=== PATIENT | female | born 1930 | race Caucasian/White ===

== ENCOUNTER 2016-07-18 08:30 | Outpatient (RCR) | payer MEDICARE ==
[~2016-07-18 08:30] MED LIST: ALEN35TA20 PO; ALEN70TA47 PO; ALPR.25T PO; AMOXICILLIN 875MG PO; APIX5TAB PO; ASP81TEC PO; ATRV10T PO; CALC600T PO; CARV12.53 PO; CEPH500C PO; CIPR2.5D2 RIGHT EAR; FISH1CAP15 PO; HYDR-3454 PO; HYDR12.5 PO; LISI-552 PO; LISI1TAB PO; LISI20TA PO; LUTE10TA PO; LUTE20TA PO; MELO15TA14 PO; METO25TA2 PO; MULT-878 PO; MULT1TAB12 PO; NAPR500T3 PO; OMEG1CAP51 PO; VIT1CAPS9 PO; [UNRECOGNIZED DRUG - CODE] PO; [UNRECOGNIZED DRUG - OTHER] PO
== END 2016-09-22 | disposition home or self-care (01) ==
LOC: CARD 08:30
PROVIDERS: ATTEND Internal Medicine Interventional Cardiology
DX: I48.91 Unspecified atrial fibrillation (principal)
CPT/HCPCS: 93270

== ENCOUNTER 2016-10-17 05:42 | Outpatient (CLI) | payer MEDICARE ==
[~2016-10-17] VITALS: Ht 162.6 cm; Wt 68.3 kg
--- OUTSIDE RECORDS SUMMARY | 2016-10-17 05:45 | XMS REPORT | Continuity of Care Document ---
Author Author [facility] Organization [facility] Address Unknown Phone Unavailable Care Team Providers Care Electrical Calibrator Name Role Phone ARTUR DENG MD PCP Insurance Providers Payer Name Policy Number Subscriber Name Relationship Wps Medicare [id number] Adali Herr 18 Self / Same As Patient Blue Cross Mcr Supp [id number] Adali Herr P 18 Self / Same As Patient Advance Directives Directive Response Recorded Date/Time Advance Directives Yes 07/11/16 12:31am Health Care Power of Chief Science Officer No 07/11/16 12:31am Organ Donor Yes 07/11/16 12:31am Problems Active Problems Medical Problem Onset Date Status Hyponatremia Unknown Acute Intractable neuropathic pain of left hand Unknown Acute Left arm pain Unknown Acute Uncontrolled hypertension Unknown Acute Medications Current Home Medications Medication Dose Units Route Directions Days/Qty Instructions Start Date Atorvastatin Calcium 10 Mg 10 Mg Oral Daily 06/07/12 Calcium Carbonate 600 Mg 1,200 Mg Oral Daily 11/30/12 Lutein 20 Mg 20 Mg Oral Daily 11/30/12 Alendronate Sodium 70 Mg 70 Mg Oral Every Thursday ON HOLD FOR 6 MONTHS BEGINNING 11/30/12 Fish Oil/Dha/Epa 1 Each 1,200 Mg Oral Twice A Day 06/23/16 Naproxen 500 Mg 500 Mg Oral Twice A Day #28 FILLED 06-18-16 WAS TO TAKE PRESCRIBED UNTIL ALL TAKEN THEN DISCONTINUE 06/23/16 Multivitamins-Min/Fa/Ginkgo 1 Each 1 Tab Oral Daily 06/23/16 Vit C/Vit E/Lutein/Min/[place]-3 1 Each 1 Cap Oral Daily 06/23/16 Lisinopril 20 Mg 40 Mg Oral Daily 30 Days 06/24/16 Carvedilol 12.5 Mg 12.5 Mg Oral Twice A Day 30 Days 06/24/16 Apixaban 5 Mg 5 Mg Oral Twice A Day 30 Days 06/24/16 Hydrochlorothiazide 12.5 Mg 12.5 Mg Oral Daily 30 Days 06/24/16 Meloxicam 15 Mg 15 Mg Oral Daily as needed for Hand/Finger Pain 30 Past Home Medications Medication Directions Ordered Status Metoprolol Tartrate (Lopressor) 25 Mg Tablet, 25 Mg Oral Twice A Day Discontinued Lisinopril 20 Mg Tablet, 20 Mg Oral Daily 06/07/12 Discontinued Aspirin 81 Mg Tabec, 81 Mg Oral Twice A Day 06/07/12 Discontinued Multivitamins W-Minerals 1 Each Tablet, 1 Tab Oral Daily 06/07/12 Discontinued Calcium Phosphate 480 Gm Powder, 480 Gm Oral Daily 06/07/12 Discontinued Lutein 10 Mg Tablet, 10 Mg Oral Daily 06/07/12 Discontinued Fish Oil/Dha/Epa 1 Each Capsule, 1 Each Oral Daily 06/07/12 Discontinued Alendronate Sodium 35 Mg Tablet, 35 Mg Oral Weekly On Thu06/07/12 Discontinued Alprazolam 0.25 Mg Tablet, 1 Tab Oral Q8hr Prn 06/07/12 Discontinued Hctz/Lisinopril (Zestoretic) 1 Each Tablet, 1 Tab Oral Daily 11/30/12 Discontinued [place]-3 Fatty Acids/Fish Oil 1 Each Capsule, 1000 Mg Oral Three Times A Day 11/30/12 Discontinued Ciprofloxacin Hcl 2.5 Ml Drops, 4 Drops Right Ear Three Times A Day 11/30/12 Discontinued [Amoxicillin 875MG] , 875 Mg Oral Twice A Day 11/30/12 Discontinued [Antioxidant Vitamins] , 1 Tab Oral Daily 11/30/12 Discontinued Cephalexin Monohydrate (Keflex) 500 Mg Capsule, 1 Each Oral Three Times A Day 12/06/12 Discontinued Hydrocodone Bit/Acetaminophen 1 Each Tablet, 1-2 Tab Oral Every 4HRS as needed 12/06/12 Discontinued Social History Social History Problem Response Recorded Date/Time Recent Foreign Travel No 06/24/2016 4:13pm Sexually Transmitted Disease No 07/11/2016 12:31am Recent Hopitalizations No 07/11/2016 12:31am Sexually Transmitted Disease No 07/11/2016 12:31am Hx Sexually Transmitted Disorders No 12/06/2012 6:20am Hospital Discharge Instructions No hospital discharge instructions. Plan of Care Prescriptions See Medication Section Functional Status No functional status results. Allergies, Adverse Reactions, Alerts Allergen Type Severity Reaction Status Last Updated NKANo Known Allergies Allergy Unknown Active 06/08/06 Immunizations No immunization records. Vital Signs No known vital signs results. Results No known relevant diagnostic tests, laboratory data and/or discharge summary. Procedures Procedure Status Date Provider(s) Cardiac event recording Completed 06/24/16 Dodie RIVERA MD Encounters Encounter Location Arrival/Admit Date Discharge/Depart Date Attending Provider Discharged Recurring [facility] 07/18/16 8:30am 11:59pm Dodie RIVERA MD
== END 2016-10-17 13:10 ==
LOC: PREOP 05:42
PROVIDERS: ATTEND Internal Medicine
DX: Z01.818 Encounter for other preprocedural examination (principal); K92.2 Gastrointestinal hemorrhage, unspecified; D64.9 Anemia, unspecified

== ENCOUNTER 2016-10-21 06:58 | Day surgery (SDC) | payer MEDICARE ==
[~2016-10-21] VITALS: Ht 162.6 cm; Wt 68.3 kg
[2016-10-21] MEDS ORDERED: D5 LR IV SOLUTION 1,000 ML IV ONE (07:01)
--- OUTSIDE RECORDS SUMMARY | 2016-10-21 07:02 | XMS REPORT | Continuity of Care Document ---
Author Author [facility] Organization [facility] Address Unknown Phone Unavailable Care Team Providers Care Roof Shingler Name Role Phone ARTUR DENG MD PCP Insurance Providers Payer Name Policy Number Subscriber Name Relationship Wps Medicare [id number] Adali Herr 18 Self / Same As Patient Blue Cross Mcr Supp [id number] Adali Herr P 18 Self / Same As Patient Advance Directives Directive Response Recorded Date/Time Advance Directives Yes 07/11/16 12:31am Health Care Power of Brokerage Clerk No 07/11/16 12:31am Organ Donor Yes 07/11/16 [...] 1 Tab Oral Daily 06/23/16 Vit C/Vit E/Lutein/Min/[place]-3 1 Each 1 Cap Oral Daily 06/23/16 [...] Tablet, 1 Tab Oral Daily 11/30/12 Discontinued [place]-3 Fatty Acids/Fish Oil 1 Each Capsule, 1000 [...] Discharge/Depart Date Attending Provider Discharged Recurring [facility] 07/18/16 8:30am 11:59pm Dodie RIVERA MD
--- OUTSIDE RECORDS SUMMARY | 2016-10-21 07:02 | XMS REPORT | Continuity of Care Document ---
Author Author [facility] Organization [facility] Address Unknown Phone Unavailable Care Team Providers Care Radiopharmacist Name Role Phone ARTUR DENG MD PCP Insurance Providers Payer Name Policy Number Subscriber Name Relationship Wps Medicare [id number] Adali Herr 18 Self / Same As Patient Blue Cross Mcr Supp [id number] Adali Herr P 18 Self / Same As Patient Advance Directives Directive Response Recorded Date/Time Advance Directives Yes 07/11/16 12:31am Health Care Power of Tool Room Attendant No 07/11/16 12:31am Organ Donor Yes 07/11/16 [...] 1 Tab Oral Daily 06/23/16 Vit C/Vit E/Lutein/Min/[place]-3 1 Each 1 Cap Oral Daily 06/23/16 [...] Tablet, 1 Tab Oral Daily 11/30/12 Discontinued [place]-3 Fatty Acids/Fish Oil 1 Each Capsule, 1000 [...] Discharge/Depart Date Attending Provider Discharged Recurring [facility] 07/18/16 8:30am 11:59pm Dodie RIVERA MD
[2016-10-21] MEDS ORDERED: D5 LR IV SOLUTION 1,000 ML IV STA (07:20)
[2016-10-21 07:22] VITALS: BP 194/99
[2016-10-21] MEDS ORDERED: LIDOCAINE JELLY 2% (XYLOCAINE) 5 ML TUBE MM PRN (07:30)
[2016-10-21] MEDS ORDERED: HURRICAINE EXT TUBE (BENZOCAINE) XX PRN (07:30)
[2016-10-21] MEDS ORDERED: NALOXONE 0.4 MG/ML 1 ML (NARCAN) VIAL IVP PRN (07:30)
[2016-10-21] MEDS ORDERED: FLUMAZENIL (ROMAZICON) 0.1 MG/ML 5 ML VIAL INJ PRN (07:30)
[2016-10-21] MEDS ORDERED: METO-270 PO (07:38)
[2016-10-21] MEDS ORDERED: HURRICAINE EXT TUBE (BENZOCAINE) ONE (07:41)
[2016-10-21] MEDS ORDERED: MIDAZOLAM 2 MG/2 ML (VERSED) VIAL ONE (07:41)
[2016-10-21] MEDS ORDERED: LIDOCAINE JELLY 2% (XYLOCAINE) 5 ML TUBE ONE (07:41)
[2016-10-21] MEDS ORDERED: fentaNYL INJECTION 100 MCG/2 ML AMP ONE (07:41)
--- NOTE | 2016-10-21 07:49 | Pre-Op Note & Conscious Sedat ---
Pre-Operative Progress Note H&P Reviewed The H&P was reviewed, patient examined and no changes noted. Date H&P Reviewed: Oct 21, 2016 Time H&P Reviewed: 07:48 Conscious Sedation Pre-Proced ASA Class: 2 Airway Mallampati Classification: ([place] appropriate class) I. II. III, IV Lungs Heart ASA score ASA 1: a normal healthy patient ASA 2: a patient with a mild systemic disease (mid diabetes, controlled hypertension, obesity ASA 3: a patient with a severe systemic disease that limits activity (angina , COPD, prior Myocardial infarction) ASA 4: a patient with an incapacitating disease that is a constant threat to life (CHF, renal failure) ASA 5: a moribund patient not expected to survive 24 hrs. (ruptured aneurysm) ASA 6: a declared brain patient whose organs are being harvested. For emergent operations, add the letter E after the classification Grade 2 Sedation Plan: Analgesia, Amnesia, Plan communicated to team members, Discussed options with patient/fam, Discussed risks with patient/fam Note The patient is an appropriate candidate to undergo the planned procedure, sedation, and anesthesia. The patient immediately re-assessed prior to indication. JESSICA LOCKWOOD MD Oct 21, 2016 07:49
[2016-10-21] MEDS: fentaNYL INJECTION 100 MCG/2 ML AMP IVP PRN ×2 (07:56→08:12)
[2016-10-21] MEDS: MIDAZOLAM 2 MG/2 ML (VERSED) VIAL IVP PRN ×2 (08:00→08:05)
[2016-10-21 08:40] VITALS: BP 143/78
[2016-10-21 09:20] VITALS: BP 164/74
[2016-10-21 11:36] VITALS: BP 164/74
--- NOTE | 2016-10-21 14:39 | PROCEDURE REPORT ---
PROCEDURE PHYSICIAN: JESSICA LOCKWOOD EGD SUMMARY DATE OF PROCEDURE: 10/21/2016 INDICATION FOR THE PROCEDURE: Melena with secondary anemia on anticoagulant therapy. The patient was placed in the left lateral decubitus position. The endoscope was inserted into the oral cavity and under catheterization the esophagus was intubated. The scope was passed down the esophagus, through the stomach, and into the second portion of the duodenum. Careful inspection was made as the endoscope was withdrawn. The patient tolerated the procedure well. FINDINGS: The posterior hypopharynx, arytenoid aperture and true and false vocal folds were unremarkable. Proximal mid and distal esophagus were unremarkable. The Z line was distinct and a small to moderate size hiatal hernia is present. There is some arcuate blood vessel dilatation but no evidence for erosive esophagitis. The Z line was distinct without evidence for rings, webs, strictures or Braswell's change. Photographic documentation was obtained. The cardia of the stomach was unremarkable. There was one area of oozing from likely hemorrhagic gastritis focally noted in the cardia. No evidence for ulceration was noted. A photograph was obtained in addition to biopsy. No other evidence for blood was noted in the upper GI tract. Mild antral erythema was present with biopsy obtained for Helicobacter and histopathology. No erosions or ulcerations were noted. The pylorus, the pyloric channel, the duodenal bulb, and second portion duodenum were unremarkable. ASSESSMENT: One focal area of hemorrhagic gastritis in the cardia was present, questionable source of this patient's bleeding with mild antral erythema. Biopsies were obtained and submitted for histopathologic evaluation. No evidence for peptic ulcer disease was noted. The patient did have small to moderate size hiatal hernia without evidence for erosive esophagitis or Braswell's change. As this is a very questionable source of this patient's bleeding and she does have a need for ongoing anticoagulant therapy, we will be proceeding with colonoscopy in the near future for further investigation. Sincerely, Jessica Lockwood Job ID: [id number] Dictated Date: 10/21/2016 08:34:27 Charge Entry Specialist Date: 10/21/2016 14:32:18 / [facility]asa [facility]
--- NOTE | 2016-10-28 09:17 | HISTORY AND PHYSICAL ---
DATE OF ADMISSION: 10/21/2016 DICTATING PHYSICIAN: Dr. Cedillo EGD HISTORY AND PHYSICAL: Mrs. Fair is an 85-year-old white female referred by Dr. Neumann for diagnostic EGD. She was feeling fatigued and presented to Dr. Neumann's office where he noted that her hemoglobin was low at 10.2 in late August. She denied any history of melena or bright red blood per rectum. She had recently been started on Eliquis for paroxysmal atrial fibrillation for which she was admitted in late June. She denied any problems of indigestion or abdominal discomfort. I performed a colonoscopy on her albeit 15 years ago that was unremarkable other than revealing mild diverticular disease. She reports that her weight has been stable. She does not take aspirin or nonsteroidal medication. She is not aware of a family history for colon cancer or peptic ulcer disease. Stool for occult blood was done and was positive. PAST MEDICAL HISTORY: Significant for: 1. Hypertension. 2. Hyperlipidemia. 3. She has no known history of coronary artery disease. 4. Recent echocardiography done after diagnosis of paroxysmal antral fibrillation revealed preserved systolic function and mild diastolic dysfunction with mild LVH and normal cardiac chamber dimensions. PAST SURGICAL HISTORY: Significant for recent left carpal tunnel release. She has had no previous abdominal surgery reported. SOCIAL HISTORY: She is retired and a very active senior with no past smoking or significant drinking history. MEDICATIONS: On admission include: 1. Eliquis 5 mg b.i.d. 2. metoprolol 25 mg b.i.d. 3. carvedilol 25 mg b.i.d. 4. lisinopril 40 mg daily 5. hydrochlorothiazide 12.5 mg daily 6. atorvastatin 10 mg daily 7. Alendronate 70 mg weekly 8. Ocuvite 1 daily 9. Lutein 20 mg daily 10. multiple vitamin daily 11. calcium 1200 mg daily 12. fish oil 1200 mg b.i.d. ALLERGIES: She reports no known medical allergies. PHYSICAL EXAMINATION: Reveals an alert white female, appears to be in no acute distress. She does reveal mild pallor. Sclera are nonicteric. HEENT: Oral cavity reveals Mallampati class II oropharyngeal configuration. No pharyngeal erythema is noted. NECK: Reveals no JVD, adenopathy or bruits. CHEST: Clear. CV: Reveals regular rate and rhythm without murmur, S3 or S4. ABDOMEN: Soft, supple without masses, organomegaly or tenderness. EXTREMITIES: No cyanosis, clubbing, or edema. ASSESSMENT: The patient is set-up for EGD evaluation on 10/21. If EGD fails to reveal evidence for GI bleeding, we will proceed with colonoscopy. The patient will hold Eliquis following her evening dose on Thursday. Prep instructions for the split dose Colyte were given. I thank you for the referral of this pleasant lady. Sincerely, Job ID: [id number] Dictated Date: 10/16/2016 20:32:00 Outside Physical Damage Appraiser Date: 10/17/2016 07:49:31/eric
== END 2016-10-21 09:20 | disposition home or self-care (01) ==
LOC: ENDO 06:58
PROVIDERS: ATTEND Internal Medicine
DX: K29.71 Gastritis, unspecified, with bleeding (principal); K44.9 Diaphragmatic hernia without obstruction or gangrene; D64.9 Anemia, unspecified; Z79.01 Long term (current) use of anticoagulants
CPT/HCPCS: 88305; 88342

== ENCOUNTER → 2016-10-29 | Outpatient (CLI) | payer MEDICARE ==
[~2016-10-29] MED LIST changes: +METO-270 PO
--- OUTSIDE RECORDS SUMMARY | 2016-10-29 05:42 | XMS REPORT | Continuity of Care Document ---
Author Author [facility] Organization [facility] Address Unknown Phone Unavailable Care Team Providers Care Seed Cleaner Operator Name Role Phone ARTUR DENG MD PCP Insurance Providers Payer Name Policy Number Subscriber Name Relationship Wps Medicare [id number] Adali Herr 18 Self / Same As Patient Blue Cross Mcr Supp [id number] Adali Herr P 18 Self / Same As Patient Advance Directives Directive Response Recorded Date/Time Advance Directives Yes 07/11/16 12:31am Health Care Power of Well Servicing Rig Operator No 07/11/16 12:31am Organ Donor Yes 07/11/16 [...] 1 Tab Oral Daily 06/23/16 Vit C/Vit E/Lutein/Min/[place]-3 1 Each 1 Cap Oral Daily 06/23/16 [...] Tablet, 1 Tab Oral Daily 11/30/12 Discontinued [place]-3 Fatty Acids/Fish Oil 1 Each Capsule, 1000 [...] Discharge/Depart Date Attending Provider Discharged Recurring [facility] 07/18/16 8:30am 11:59pm Dodie RIVERA MD
== END ==
LOC: PREOP 05:38
PROVIDERS: ATTEND Internal Medicine
DX: Z01.818 Encounter for other preprocedural examination (principal); R19.5 Other fecal abnormalities; D64.9 Anemia, unspecified

== ENCOUNTER 2016-10-31 08:18 | Day surgery (SDC) | payer MEDICARE ==
[~2016-10-31] VITALS: Ht 162.6 cm; Wt 68.3 kg
--- OUTSIDE RECORDS SUMMARY | 2016-10-31 08:22 | XMS REPORT | Continuity of Care Document ---
Author Author [facility] Organization [facility] Address Unknown Phone Unavailable Care Team Providers Care Studio Hand Name Role Phone ARTUR DENG MD PCP Insurance Providers Payer Name Policy Number Subscriber Name Relationship Wps Medicare [id number] Adali Herr 18 Self / Same As Patient Blue Cross Mcr Supp [id number] Adali Herr P 18 Self / Same As Patient Advance Directives Directive Response Recorded Date/Time Advance Directives Yes 07/11/16 12:31am Health Care Power of Net Developer Software Engineer C No 07/11/16 12:31am Organ Donor Yes 07/11/16 [...] 1 Tab Oral Daily 06/23/16 Vit C/Vit E/Lutein/Min/[place]-3 1 Each 1 Cap Oral Daily 06/23/16 [...] Tablet, 1 Tab Oral Daily 11/30/12 Discontinued [place]-3 Fatty Acids/Fish Oil 1 Each Capsule, 1000 [...] Discharge/Depart Date Attending Provider Discharged Recurring [facility] 07/18/16 8:30am 11:59pm Dodie RIVERA MD
--- OUTSIDE RECORDS SUMMARY | 2016-10-31 08:22 | XMS REPORT | Continuity of Care Document ---
Author Author [facility] Organization [facility] Address Unknown Phone Unavailable Care Team Providers Care Discharge Rn Name Role Phone ARTUR DENG MD PCP Insurance Providers Payer Name Policy Number Subscriber Name Relationship Wps Medicare [id number] Adali Herr 18 Self / Same As Patient Blue Cross Mcr Supp [id number] Adali Herr P 18 Self / Same As Patient Advance Directives Directive Response Recorded Date/Time Advance Directives Yes 07/11/16 12:31am Health Care Power of Boat Operator No 07/11/16 12:31am Organ Donor Yes [...] 1 Tab Oral Daily 06/23/16 Vit C/Vit E/Lutein/Min/[place]-3 1 Each 1 Cap Oral Daily 06/23/16 [...] Tablet, 1 Tab Oral Daily 11/30/12 Discontinued [place]-3 Fatty Acids/Fish Oil 1 Each Capsule, 1000 [...] Discharge/Depart Date Attending Provider Discharged Recurring [facility] 07/18/16 8:30am 11:59pm Dodie RIVERA MD
[2016-10-31 08:30] VITALS: BP 196/80
[2016-10-31] MEDS ORDERED: 1/2 NS IV SOLUTION 1,000 ML IV PRN (08:30)
[2016-10-31] MEDS ORDERED: NALOXONE 0.4 MG/ML 1 ML (NARCAN) VIAL IVP PRN (08:30)
[2016-10-31] MEDS ORDERED: FLUMAZENIL (ROMAZICON) 0.1 MG/ML 5 ML VIAL INJ PRN (08:30)
--- NOTE | 2016-10-31 08:42 | HISTORY AND PHYSICAL ---
DATE OF ADMISSION: 10/31/2016 DICTATING PHYSICIAN: Dr. Cedillo COLONOSCOPY HISTORY AND PHYSICAL: Mrs. Fair is an 85-year-old white female who on 10/21/2016 underwent EGD evaluation for anemia and occult positive stool. No definitive bleeding sites were identified. She was H. pylori positive with evidence for gastritis but had no evidence for peptic ulcer disease or definitive bleeding site. She is set up for colonoscopy on 10/31/2016. She is on anticoagulant therapy for paroxysmal atrial fibrillation and it is continuing to be held. She reports no melena or bright red blood per rectum. She has felt well otherwise. PAST MEDICAL HISTORY: Is contained in her previous history and physical. PHYSICAL EXAMINATION: Reveals a white female, who appears a little younger than her stated age. HEENT EXAMINATION: Unremarkable. CHEST: Clear. CV: Reveals regular rate and rhythm without murmur, S3 or S4. ABDOMEN: Soft, supple without masses, organomegaly or tenderness. EXTREMITIES: Reveal no cyanosis, clubbing, or edema. ASSESSMENT: The patient is undergoing diagnostic colonoscopy for evaluation of anemia and occult positive blood in the stool. She will continue to hold Eliquis for paroxysmal atrial fibrillation. Prep instructions with the [place] prep kit were given and questions were answered. Job ID: [id number] Dictated Date: 10/28/2016 21:18:00 Power Saw Mechanic Date: 10/29/2016 08:16:18/eric MCCRAY
--- NOTE | 2016-10-31 08:47 | Pre-Op Note & Conscious Sedat ---
Pre-Operative Progress Note H&P Reviewed The H&P was reviewed, patient examined and no changes noted. Date H&P Reviewed: Oct 31, 2016 Time H&P Reviewed: 08:46 Conscious Sedation Pre-Proced ASA Class: 2 Airway Mallampati Classification: ([place] appropriate class) I. II. III, IV Lungs Heart ASA score ASA 1: a normal healthy patient ASA 2: a patient with a mild systemic disease (mid diabetes, controlled hypertension, obesity ASA 3: a patient with a severe systemic disease that limits activity (angina , COPD, prior Myocardial infarction) ASA 4: a patient with an incapacitating disease that is a constant threat to life (CHF, renal failure) ASA 5: a moribund patient not expected to survive 24 hrs. (ruptured aneurysm) ASA 6: a declared brain patient whose organs are being harvested. For emergent operations, add the letter E after the classification Grade 2 Sedation Plan: Analgesia, Amnesia, Plan communicated to team members, Discussed options with patient/fam, Discussed risks with patient/fam Note The patient is an appropriate candidate to undergo the planned procedure, sedation, and anesthesia. The patient immediately re-assessed prior to indication. JESSICA LOCKWOOD MD Oct 31, 2016 08:47
[2016-10-31] MEDS ORDERED: MIDAZOLAM 2 MG/2 ML (VERSED) VIAL ONE ×3 (09:09→09:51)
[2016-10-31] MEDS ORDERED: fentaNYL INJECTION 100 MCG/2 ML AMP ONE ×2 (09:09→09:41)
[2016-10-31] MEDS ORDERED: LIDOCAINE JELLY 2% (XYLOCAINE) 5 ML TUBE ONE (09:10)
[2016-10-31] MEDS: fentaNYL INJECTION 100 MCG/2 ML AMP IVP PRN ×4 (09:25→09:54)
[2016-10-31] MEDS: MIDAZOLAM 2 MG/2 ML (VERSED) VIAL IVP PRN ×4 (09:27→09:50)
[2016-10-31 10:15] VITALS: BP 156/81
[2016-10-31 10:45] VITALS: BP 175/74
[2016-10-31 10:50] VITALS: BP 175/74
--- NOTE | 2016-10-31 11:31 | PROCEDURE REPORT ---
PROCEDURE PHYSICIAN: JESSICA LOCKWOOD DATE OF PROCEDURE: 10/31/2016 Colonoscopy was performed for evaluation of anemia and occult positive blood. PROCEDURE: The patient was placed in the left lateral decubitus position. Prior to undergoing colonoscopy, digital rectal evaluation was performed. Anal sphincter tone was normal and the perianal reflex was intact. No abnormalities were noted to digital inspection of the anal canal or distal rectal vault. The colonoscope was then inserted into the rectum and under direct visualization, advanced to the cecum. The cecum was identified by the identification of the ileocecal valve and cecal strap. The cecum was partially obscured by stool. There was no evidence for internal or external hemorrhoids and the rectum was unremarkable. Several small sigmoid diverticulum were present, without evidence for diverticulitis. The sigmoid colon was otherwise unremarkable. The descending colon, transverse colon, ascending colon and cecum were unremarkable. The cecum was partially obscured by stool such that angiodysplastic lesions could not be completely ruled out. There was no evidence for blood noted in the lower GI tract today. No evidence for neoplasia was noted on today's evaluation. Mild diverticular disease confined to the sigmoid colon was present. Considering this patient's age, would not recommend future surveillance colonoscopy. She was advised to resume her Helicobacter eradication regimen tomorrow. I thank you for the referral of this pleasant lady. Sincerely, Jessica Lockwood Job ID: [id number] Dictated Date: 10/31/2016 10:27:55 Chip Washer Date: 10/31/2016 11:24:05 / srinivasa
== END 2016-10-31 10:56 | disposition home or self-care (01) ==
LOC: ENDO 08:18
PROVIDERS: ATTEND Internal Medicine
DX: R19.5 Other fecal abnormalities (principal); D64.9 Anemia, unspecified; K57.30 Diverticulosis of large intestine without perforation or abscess without bleeding

== ENCOUNTER → 2016-10-31 | Outpatient (CLI) | payer MEDICARE ==
--- OUTSIDE RECORDS SUMMARY | 2016-10-31 08:26 | XMS REPORT | Continuity of Care Document ---
Author Author [facility] Organization [facility] Address Unknown Phone Unavailable Care Team Providers Care Servicer Name Role Phone ARTUR DENG MD PCP Insurance Providers Payer Name Policy Number Subscriber Name Relationship Wps Medicare [id number] Adali Herr 18 Self / Same As Patient Blue Cross Mcr Supp [id number] Adali Herr P 18 Self / Same As Patient Advance Directives Directive Response Recorded Date/Time Advance Directives Yes 07/11/16 12:31am Health Care Power of Pediatric Speech Language Pathologist No 07/11/16 12:31am Organ Donor Yes 07/11/16 [...] 1 Tab Oral Daily 06/23/16 Vit C/Vit E/Lutein/Min/[place]-3 1 Each 1 Cap Oral Daily 06/23/16 [...] Tablet, 1 Tab Oral Daily 11/30/12 Discontinued [place]-3 Fatty Acids/Fish Oil 1 Each Capsule, 1000 [...] Discharge/Depart Date Attending Provider Discharged Recurring [facility] 07/18/16 8:30am 11:59pm Dodie RIVERA MD
== END ==
LOC: LAB 08:22
PROVIDERS: ATTEND Internal Medicine
DX: M12.9 Arthropathy, unspecified (principal)
CPT/HCPCS: 36415; 85652; 86038; 86430

== ENCOUNTER → 2016-12-08 | Outpatient (CLI) | payer MEDICARE ==
--- NOTE | 2016-12-08 16:06 | Diagnostic Imaging Report ---
Three views of both hands. INDICATION: Evaluate for rheumatoid arthritis. FINDINGS: Both hands demonstrate prominent degenerative changes with osteophyte formation at the DIP joints more prominent in the right hand and degenerative changes along the carpometacarpal joint at the base of the thumb in both hands. No significant erosions or deformity seen. There are prominent degenerative changes at the PIP joints seen. 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 Dictated by: Dictated on workstation # [id number]
== END ==
LOC: RAD 14:32
PROVIDERS: ATTEND Internal Medicine
DX: M06.9 Rheumatoid arthritis, unspecified (principal)

== ENCOUNTER 2017-02-05 08:32 | Emergency (ER) | payer MEDICARE ==
[~2017-02-05] VITALS: Ht 160 cm; Wt 68.0 kg
[2017-02-05 09:39] LABS: BASOPHILS % (AUTO) 0 % (0-10); EOSINOPHILS % (AUTO) 1 % (0-10); LYMPHOCYTES # (AUTO) 0.8 X 10^3 (1.0-4.0); LYMPHOCYTES % (AUTO) 10 % (12-44); MEAN CORPUSCULAR HEMOGLOBIN 29 PG (25-34); MEAN CORPUSCULAR HGB CONC 34 G/DL (32-36); MEAN CORPUSCULAR VOLUME 85 FL (80-99); MEAN PLATELET VOLUME 9.7 FL (7.4-10.4); MONOCYTES # (AUTO) 0.8 X 10^3 (0.0-1.0); MONOCYTES % (AUTO) 9 % (0-12); NEUTROPHILS # (AUTO) 6.7 X 10^3 (1.8-7.8); NEUTROPHILS % (AUTO) 80 % (42-75); PLATELET COUNT 191 10^3/uL (130-400); RED BLOOD COUNT 3.53 10^6/uL (4.35-5.85); RED CELL DISTRIBUTION WIDTH 14.3 % (10.0-14.5); WHITE BLOOD COUNT 8.3 10^3/uL (4.3-11.0)
[2017-02-05 09:58] LABS: ALANINE AMINOTRANSFERASE 24 U/L (0-55); ALBUMIN 3.6 GM/DL (3.2-4.5); ANION GAP 9 MMOL/L (5-14); ASPARTATE AMINO TRANSFERASE 18 U/L (5-34); BILIRUBIN,TOTAL 0.9 MG/DL (0.1-1.0); BLOOD UREA NITROGEN 18 MG/DL (7-18); BUN/CREATININE RATIO 24 (0-20); CALCIUM 9.9 MG/DL (8.5-10.1); CARBON DIOXIDE 26 MMOL/L (21-32); CHLORIDE 95 MMOL/L (98-107); CREATININE SERUM 0.76 MG/DL (0.60-1.30); GFR ESTIMATED > 60; GLUCOSE 118 MG/DL (70-105); HEMOLYSIS 1 (-100-29); ICTERUS 1.7 (-100-1.9); LIPEMIA -2 (-100-49); POTASSIUM 4.4 MMOL/L (3.6-5.0); SODIUM 130 MMOL/L (135-145); TOTAL PROTEIN 6.7 GM/DL (6.4-8.2)
[2017-02-05 10:04] LABS: ERYTHROCYTE SEDIMENTATION RATE 75 MM/HR (0-30)
--- NOTE | 2017-02-05 10:37 | ED General ---
General Chief Complaint: General Problems/Pain Stated Complaint: JOINT ACHES/FEET AND HANDS SWOLLEN Nursing Triage Note: C/O joint pain in wrist and knees since being discharged from [facility] in Jun 2016. She reportedly has had multiple xrays of of her extremities which have been no value according to the patient. She has been evaluated by Dr. Deng multiple times as well as [facility]. Nursing Sepsis Screen: No Definite Risk Source of Information: Patient Exam Limitations: No Limitations History of Present Illness Time Seen by Provider: 10:31 Initial Comments The patient's an 86-year-old white female who presents with complaints of multiple joint aches and also swelling of the hands and feet. She reports that this began during a hospitalization in June and has increased since then. She has been treated for carpal tunnel syndrome. She is seen both orthopedics and her family physician several times since that time. Hand x-ray was done in November of this year which showed only degenerative changes. She reports pain in her legs wrists and shoulders. Timing/Duration: Other (7 months or more) Allergies and Home Medications Allergies Coded Allergies: No Known Drug Allergies (Unverified , 10/17/16) Home Medications Alendronate Sodium 70 Mg Tablet, 70 MG PO We, (Reported) ON HOLD FOR 6 MONTHS BEGINNING Atorvastatin Calcium 10 Mg Tablet, 10 MG PO DAILY, (Reported) Calcium Carbonate 600 Mg Tablet, 1,200 MG PO DAILY, (Reported) Carvedilol 12.5 Mg Tablet, 12.5 MG PO BID for 30 Days Prescribed by: CORY BHAT on 06/24/16 152 Fish Oil/Dha/Epa 1 Each Capsule, 1,200 MG PO BID, (Reported) Hydrochlorothiazide 12.5 Mg Capsule, 12.5 MG PO DAILY for 30 Days Prescribed by: CORY BHAT on 06/24/16 152 Lisinopril 20 Mg Tablet, 40 MG PO DAILY for 30 Days Prescribed by: CORY BHAT on 06/24/16 152 Lutein 20 Mg Tablet, 20 MG PO DAILY, (Reported) Metoprolol Succinate 25 Mg Tab.er.24h, 25 MG PO BID, (Reported) Multivitamins-Min/FA/Ginkgo 1 Each Tablet, 1 TAB PO DAILY, (Reported) Vit C/Vit E/Lutein/Min/[place]-3 1 Each Capsule, 1 CAP PO DAILY, (Reported) Constitutional: see HPI EENTM: no symptoms reported Respiratory: no symptoms reported Cardiovascular: no symptoms reported Gastrointestinal: no symptoms reported Genitourinary: incontinence Musculoskeletal: see HPI, joint pain, joint swelling, muscle pain Skin: no symptoms reported Hematologic/Lymphatic: No Symptoms Reported Immunological/Allergic: no symptoms reported Past Rtzifop-Cnwefs-Ewrugt Hx Patient Social History Alcohol Use: Denies Use Recreational Drug Use: No Smoking Status: Never a Smoker Recent Foreign Travel: No Contact w/Someone Who Travel: No Recent Infectious Disease Expo: No Recent Hopitalizations: No Immunizations Up To Date Tetanus Booster (TDap): More than 5yrs Date of Pneumonia Vaccine: Jul 26, 2016 Date of Influenza Vaccine: Jul 26, 2016 Seasonal Allergies Seasonal Allergies: No Surgeries HX Surgeries: Yes (FEET, CARPAL TUNNEL ) Surgeries: Orthopedic Respiratory Hx Respiratory Disorders: No Cardiovascular Hx Cardiac Disorders: Yes Cardiac Disorders: High Cholesterol, Hypertension Neurological Hx Neurological Disorders: No Reproductive System Hx Reproductive Disorders: No Sexually Transmitted Disease: No HIV/AIDS: No 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: Menopausal Genitourinary Hx Genitourinary Disorders: No Gastrointestinal Hx Gastrointestinal Disorders: No Musculoskeletal Hx Musculoskeletal Disorders: Yes (LEFT KNEE BURSITIS) Musculoskeletal Disorders: Osteoporosis, Chronic Back Pain Endocrine Hx Endocrine Disorders: No HEENT HX ENT Disorders: Yes (GLASSES) 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, Bilateral Hearing Aide Cancer Hx Cancer: No Psychosocial Hx Psychiatric Problems: No Integumentary HX Skin/Integumentary Disorder: No Blood Transfusions Hx Blood Disorders: Yes (ANEMIA) Adverse Reaction to a Blood Tr: No (N/A) Physical Exam Vital Signs Vital Sign - Last 12Hours 02/05/17 08:56 Temp 97.4 Pulse 70 Resp 16 B/P (MAP) 147/62 Pulse Ox 98 Capillary Refill : Less Than 3 Seconds General Appearance: No Apparent Distress, WD/WN Eyes: Bilateral Eye Normal Inspection HEENT: Normal ENT Inspection Neck: Normal Inspection Respiratory: Chest Non Tender, Lungs Clear, Normal Breath Sounds, No Accessory Muscle Use, No Respiratory Distress Cardiovascular: Regular Rate, Rhythm, No Edema, No Gallop, No JVD, No Murmur, Normal Peripheral Pulses Gastrointestinal: Normal Bowel Sounds, No Organomegaly, No Pulsatile Mass, Non Tender, Soft Back: Normal Inspection, No CVA Tenderness, No Vertebral Tenderness Extremity: Normal Capillary Refill, Normal Inspection, Normal Range of Motion, Non Tender, No Calf Tenderness, No Pedal Edema Neurologic/Psychiatric: Alert, Oriented x3, No Motor/Sensory Deficits, Normal Mood/Affect Skin: Normal Color, Warm/Dry Lymphatic: No Adenopathy Comments Bony increase in the IP joints of both hands. There is no suggestion of edema in the fingers and dorsal hand. There is 1-2+ symmetric pedal edema and extending to the height of a crew sock in both legs. Progress/Results/Core Measures Results/Orders Lab Results Laboratory Tests Test 02/05/17 09:30 Range/Units White Blood Count 8.3 4.3-11.0 10^3/uL Red Blood Count 3.53 L 4.35-5.85 10^6/uL Hemoglobin 10.1 L 11.5-16.0 G/DL Hematocrit 30 L 35-52 % Mean Corpuscular Volume 85 80-99 FL Mean Corpuscular Hemoglobin 29 25-34 PG Mean Corpuscular Hemoglobin Concent 34 32-36 G/DL Red Cell Distribution Width 14.3 10.0-14.5 % Platelet Count 191 130-400 10^3/uL Mean Platelet Volume 9.7 7.4-10.4 FL Neutrophils (%) (Auto) 80 H 42-75 % Lymphocytes (%) (Auto) 10 L 12-44 % Monocytes (%) (Auto) 9 0-12 % Eosinophils (%) (Auto) 1 0-10 % Basophils (%) (Auto) 0 0-10 % Neutrophils # (Auto) 6.7 1.8-7.8 X 10^3 Lymphocytes # (Auto) 0.8 L 1.0-4.0 X 10^3 Monocytes # (Auto) 0.8 0.0-1.0 X 10^3 Eosinophils # (Auto) 0.0 0.0-0.3 10^3/uL Basophils # (Auto) 0.0 0.0-0.1 10^3/uL Erythrocyte Sedimentation Rate 75 H 0-30 MM/HR Sodium Level 130 L 135-145 MMOL/L Potassium Level 4.4 3.6-5.0 MMOL/L Chloride Level 95 L 98-107 MMOL/L Carbon Dioxide Level 26 21-32 MMOL/L Anion Gap 9 5-14 MMOL/L Blood Urea Nitrogen 18 7-18 MG/DL Creatinine 0.76 0.60-1.30 MG/DL Estimat Glomerular Filtration Rate > 60 BUN/Creatinine Ratio 24 H 0-20 Glucose Level 118 H 70-105 MG/DL Calcium Level 9.9 8.5-10.1 MG/DL Total Bilirubin 0.9 0.1-1.0 MG/DL Aspartate Amino Transf (AST/SGOT) 18 5-34 U/L Alanine Aminotransferase (ALT/SGPT) 24 0-55 U/L Alkaline Phosphatase 52 40-136 U/L Total Protein 6.7 6.4-8.2 GM/DL Albumin 3.6 3.2-4.5 GM/DL My Orders Orders - GARLAND HOOVER MD Cbc With Automated Diff (02/05/17 09:01) Comprehensive Metabolic Panel (02/05/17 09:01) Erythrocyte Sedimentation Rate (02/05/17 09:01) Vital Signs/I&O Vital Sign - Last 12Hours 02/05/17 08:56 Temp 97.4 Pulse 70 Resp 16 B/P (MAP) 147/62 Pulse Ox 98 Blood Pressure Mean: 90 Departure Impression Impression: Primary Impression: Polymyalgia rheumatica Disposition: HOME, SELF-CARE Condition: Stable/Unchanged Departure-Patient Inst. Decision time for Depature: 10:36 Referrals: ARTUR DENG MD (PCP/Family) Primary Care Physician Add. Discharge Instructions: All discharge instructions reviewed with patient and/or family. Voiced understanding. Elevate feet when possible. Obtain compression stockings and use them daily. Put them on first thing each morning and remove them at bedtime. You will be started on prednisone which is a corticosteroid. Take as directed and see your doctor in 2 weeks for a repeat sedimentation rate and adjustment of dosage. Scripts Prednisone (Prednisone) 20 Mg Tab 1 MG PO EVERY MORNING, #20 TAB 2 tabs each a.m. 3 days then 1 tab each a.m. Prov: GARLAND HOOVER MD 02/05/17 GARLAND HOOVER MD Feb 05, 2017 10:37
[2017-02-05] MEDS ORDERED: PRD20T PO (10:44)
[2017-02-05 10:55] VITALS: BP 145/70
--- OUTSIDE RECORDS SUMMARY | 2017-02-09 10:36 | XMS REPORT | Continuity of Care Document ---
Author Author [facility] Organization [facility] Address Unknown Phone Unavailable Allergies Active Description Code Type Severity Reaction Onset Reported/Identified Relationship to Patient Clinical Status Yes NKANo Known Allergies NKA Miscellaneous Allergy Unknown N/ A 06/08/2006 Yes No Known Drug Allergies [id number] Drug Allergy Unknown N/ A 10/17/2016 Medications Problems Date Dx Coded Attending Type Code Diagnosis Diagnosed By 12/06/2012 Ot 735.0 HALLUX VALGUS 12/06/2012 Ot 735.2 HALLUX RIGIDUS 12/06/2012 Ot V74.8 SCREEN-BACTERIAL DIS NEC 09/26/2013 ARTUR DENG MD Ot 723.1 CERVICALGIA 09/26/2013 ARTUR DENG MD Ot V57.1 PHYSICAL THERAPY NEC 10/28/2013 ARTUR DENG MD Ot 723.1 CERVICALGIA 10/28/2013 ARTUR DENG MD Ot V57.1 PHYSICAL THERAPY NEC 03/16/2015 ARTUR DENG MD Ot V76.12 03/17/2016 BRADFORD MCKEON APRN Ot Z12.31 ENCNTR SCREEN MAMMOGRAM FOR MALIGNANT NE 03/17/2016 BRADFORD MCKEON APRN Ot Z12.31 ENCNTR SCREEN MAMMOGRAM FOR MALIGNANT NE 03/18/2016 BRADFORD MCKEON APRN Ot Z12.31 ENCNTR SCREEN MAMMOGRAM FOR MALIGNANT NE 04/04/2016 BRADFORD MCKEON APRN Ot Z12.31 ENCNTR SCREEN MAMMOGRAM FOR MALIGNANT NE 06/24/2016 ARTUR DENG MD Ot E78.5 HYPERLIPIDEMIA, UNSPECIFIED 06/24/2016 ARTUR DENG MD Ot E87.1 HYPO-OSMOLALITY AND HYPONATREMIA 06/24/2016 ARTUR DENG MD Ot I10 ESSENTIAL (PRIMARY) HYPERTENSION 06/24/2016 ARTUR DENG MD Ot I48.91 UNSPECIFIED ATRIAL FIBRILLATION 06/24/2016 ARTUR DENG MD Ot M50.30 OTHER CERVICAL DISC DEGENERATION, UNSP C 06/24/2016 ARTUR DENG MD Ot M79.642 PAIN IN LEFT HAND 06/24/2016 ARTUR DENG MD Ot 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 06/24/2016 ARTUR DEGN MD Ot R07.9 CHEST PAIN, UNSPECIFIED 06/24/2016 ARTUR DENG MD Ot R29.898 OTH SYMPTOMS AND SIGNS INVOLVING THE MUS 07/04/2016 Ot V76.12 OTH SCREEN MAMMO-MALIGN NEOPLASM OF MICHEAL 07/04/2016 Ot 401.9 HYPERTENSION NOS 07/04/2016 Ot 786.50 CHEST PAIN NOS 07/04/2016 Ot 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 07/04/2016 Ot 397.0 TRICUSPID VALVE DISEASE 07/04/2016 Ot 401.9 HYPERTENSION NOS 07/04/2016 Ot 786.50 CHEST PAIN NOS 07/04/2016 Ot 735.0 HALLUX VALGUS 07/04/2016 Ot 735.2 HALLUX RIGIDUS 07/04/2016 Ot V72.84 EXAM PRE-OPERATIVE NOS 07/04/2016 BRADFORD MCKEON APRN Ot V76.12 OTH SCREEN MAMMO-MALIGN NEOPLASM OF MICHEAL 07/04/2016 ARTUR DENG MD Ot 721.0 CERVICAL SPONDYLOSIS 07/04/2016 ARTUR DENG MD Ot V76.12 OTH SCREEN MAMMO-MALIGN NEOPLASM OF MICHEAL 07/04/2016 ARTUR DENG MD Ot V76.12 OTH SCREEN MAMMO-MALIGN NEOPLASM OF MICHEAL 07/04/2016 BRADFORD MCKEON APRN Ot Z12.31 ENCNTR SCREEN MAMMOGRAM FOR MALIGNANT NE 07/04/2016 NICOLE ZARAGOZA, Dodie CABRERA Ot I48.91 UNSPECIFIED ATRIAL FIBRILLATION 07/11/2016 CARMELLA MONTILLA DO Ot I10 ESSENTIAL (PRIMARY) HYPERTENSION 07/11/2016 CARMELLA MONTILLA DO Ot M79.2 NEURALGIA AND NEURITIS, UNSPECIFIED 07/11/2016 CARMELLA MONTILLA DO Ot M79.642 PAIN IN LEFT HAND 07/11/2016 CARMELLA MONTILLA DO Ot Z79.899 OTHER SNF (CURRENT) DRUG THERAPY 07/14/2016 CARMELLA MONTILLA DO Ot I10 ESSENTIAL (PRIMARY) HYPERTENSION 07/14/2016 CARMELLA MONTILLA DO Ot M79.2 NEURALGIA AND NEURITIS, UNSPECIFIED 07/14/2016 CARMELLA MONTILLA DO Ot M79.642 PAIN IN LEFT HAND 07/14/2016 CARMELLA MONTILLA DO Ot Z79.899 OTHER TECHNICAL OPERATOR (CURRENT) DRUG THERAPY 07/24/2016 Dodie RIVERA MD Ot I48.91 UNSPECIFIED ATRIAL FIBRILLATION 07/24/2016 Dodie RIVERA MD Ot I48.91 UNSPECIFIED ATRIAL FIBRILLATION 07/30/2016 ARTUR DENG MD Ot R09.89 OTH SYMPTOMS AND SIGNS INVOLVING THE CIR 07/30/2016 ARTUR DENG MD Ot R09.89 OTH SYMPTOMS AND SIGNS INVOLVING THE CIR 07/31/2016 ARTUR DENG MD Ot 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 07/31/2016 ARTUR DENG MD Ot R09.89 OTH SYMPTOMS AND SIGNS INVOLVING THE CIR 07/31/2016 ARTUR DENG MD Ot R20.2 PARESTHESIA OF SKIN 07/31/2016 ARTUR DENG MD Ot R29.898 OTH SYMPTOMS AND SIGNS INVOLVING THE MUS 07/31/2016 ARTUR DENG MD Ot 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 07/31/2016 ARTUR DENG MD Ot R09.89 OTH SYMPTOMS AND SIGNS INVOLVING THE CIR 07/31/2016 ARTUR DENG MD Ot R20.2 PARESTHESIA OF SKIN 07/31/2016 ARTUR DENG MD Ot R29.898 OTH SYMPTOMS AND SIGNS INVOLVING THE MUS 08/25/2016 ARTUR DENG MD Ot 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 08/25/2016 ARTUR DENG MD Ot R09.89 OTH SYMPTOMS AND SIGNS INVOLVING THE CIR 08/25/2016 ARTUR DENG MD Ot R20.2 PARESTHESIA OF SKIN 08/25/2016 ARTUR DENG MD Ot R29.898 OTH SYMPTOMS AND SIGNS INVOLVING THE MUS 08/26/2016 Dodie RIVERA MD Ot I48.91 UNSPECIFIED ATRIAL FIBRILLATION 08/27/2016 Dodie RIVERA MD Ot I48.91 UNSPECIFIED ATRIAL FIBRILLATION 08/27/2016 ARTUR DENG MD Ot 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 08/27/2016 ARTUR DENG MD Ot R09.89 OTH SYMPTOMS AND SIGNS INVOLVING THE CIR 08/27/2016 ARTUR DENG MD Ot R20.2 PARESTHESIA OF SKIN 08/27/2016 ARTUR DENG MD Ot R29.898 OT SYMPTOMS AND SIGNS INVOLVING THE MUS 09/22/2016 NICOLE ZARAGOZA, Dodie CABRERA Ot I48.91 UNSPECIFIED ATRIAL FIBRILLATION 09/23/2016 Dodie RIVERA MD Ot I48.91 UNSPECIFIED ATRIAL FIBRILLATION 09/28/2016 Dodie RIVERA MD Ot I48.91 UNSPECIFIED ATRIAL FIBRILLATION 10/17/2016 Dodie RIVERA MD Ot I48.91 UNSPECIFIED ATRIAL FIBRILLATION 10/20/2016 JESSICA LOCKWOOD MD Ot D64.9 ANEMIA, UNSPECIFIED 10/20/2016 JESSICA LOCKWOOD MD Ot K92.2 GASTROINTESTINAL HEMORRHAGE, UNSPECIFIED 10/20/2016 JESSICA LOCKWOOD MD Ot Z01.818 ENCOUNTER FOR OTHER PREPROCEDURAL EXAMIN 10/21/2016 JESSICA LOCKWOOD MD Ot D64.9 ANEMIA, UNSPECIFIED 10/21/2016 JESSICA LOCKWOOD MD Ot K29.71 GASTRITIS, UNSPECIFIED, WITH BLEEDING 10/21/2016 JESSICA LOCKWOOD MD Ot K44.9 DIAPHRAGMATIC HERNIA WITHOUT OBSTRUCTION 10/21/2016 JESSICA LOCKWOOD MD Ot Z79.01 TECHNICAL OPERATOR (CURRENT) USE OF ANTICOAGULANT 10/27/2016 JESSICA LOCKWOOD MD Ot D64.9 ANEMIA, UNSPECIFIED 10/27/2016 JESSICA LOCKWOOD MD Ot K29.71 GASTRITIS, UNSPECIFIED, WITH BLEEDING 10/27/2016 JSESICA LOCKWOOD MD Ot K44.9 DIAPHRAGMATIC HERNIA WITHOUT OBSTRUCTION 10/27/2016 JESSICA LOCKWOOD MD Ot Z79.01 TECHNICAL OPERATOR (CURRENT) USE OF ANTICOAGULANT 10/31/2016 JESSICA LOCKWOOD MD Ot D64.9 ANEMIA, UNSPECIFIED 10/31/2016 JESSICA LOCKWOOD MD Ot K57.30 DVRTCLOS OF LG INT W/O PERFORATION OR AB 10/31/2016 JESSICA LOCKWOOD MD Ot R19.5 OTHER FECAL ABNORMALITIES 11/03/2016 ARTUR DENG MD Ot M12.9 ARTHROPATHY, UNSPECIFIED 11/24/2016 ARTUR DENG MD, Ot M12.9 ARTHROPATHY, UNSPECIFIED 12/10/2016 ARTUR DENG MD Ot M06.9 RHEUMATOID ARTHRITIS, UNSPECIFIED 12/31/2016 ARTUR DENG MD, Ot M06.9 RHEUMATOID ARTHRITIS, UNSPECIFIED 01/13/2017 ARTUR DENG MD, Ot M06.9 RHEUMATOID ARTHRITIS, UNSPECIFIED Procedures Results Test Result Range Complete blood count (CBC) with automated white blood cell (WBC) differential - 06/22/16 01:45 Blood leukocytes automated count (number/volume) 10.9 10*3/ uL 4.3-11.0 Blood erythrocytes automated count (number/volume) 3.87 10*6 /uL 4.35-5.85 Venous blood hemoglobin measurement (mass/volume) 11.8 g/dL 11.5-16.0 Blood hematocrit (volume fraction) 33 % 35-52 Automated erythrocyte mean corpuscular volume 84 [foz_us] 80-99 Automated erythrocyte mean corpuscular hemoglobin (mass per erythrocyte) 31 pg 25-34 Automated erythrocyte mean corpuscular hemoglobin concentration measurement ( mass/volume) 36 g/dL 32-36 Automated erythrocyte distribution width ratio 12.2 % 10.0-14.5 Automated blood platelet count (count/volume) 239 10*3/uL 130-400 Automated blood platelet mean volume measurement 9.9 [foz_us ] 7.4-10.4 Automated blood neutrophils/100 leukocytes 80 % 42-75 Automated blood lymphocytes/100 leukocytes 11 % 12-44 Blood monocytes/100 leukocytes 8 % 0-12 Automated blood eosinophils/100 leukocytes 1 % 0-10 Automated blood basophils/100 leukocytes 0 % 0-10 Blood neutrophils automated count (number/volume) 8.8 10*3 1.8-7.8 Blood lymphocytes automated count (number/volume) 1.1 10*3 1.0-4.0 Blood monocytes automated count (number/volume) 0.9 10*3 0.0-1.0 Automated eosinophil count 0.1 10*3/uL 0.0-0.3 Automated blood basophil count (count/volume) 0.0 10*3/uL 0.0-0.1 PT panel in platelet poor plasma by coagulation assay - 06/22/16 01:45 Prothrombin time (PT) in platelet poor plasma by coagulation assay 12.2 s 12.2-14.7 INR in platelet poor plasma or blood by coagulation assay 0.9 0.8-1.4 Activated partial thromboplastin time (aPTT) in platelet poor plasma bycoagulation assay - 06/22/16 01:45 Activated partial thromboplastin time (aPTT) in platelet poor plasma bycoagulation assay 35 s 24-35 Comprehensive metabolic panel - 06/22/16 01:45 Serum or plasma sodium measurement (moles/volume) 130 mmol/ L 135-145 Serum or plasma potassium measurement (moles/volume) 4.2 mmol/L 3.6-5.0 Serum or plasma chloride measurement (moles/volume) 96 mmol/ L 98-107 Carbon dioxide 20 mmol/L 21-32 Serum or plasma anion gap determination (moles/volume) 14 mmol/L 5-14 Serum or plasma urea nitrogen measurement (mass/volume) 24 mg/dL 7-18 Serum or plasma creatinine measurement (mass/volume) 0.85 mg /dL 0.60-1.30 Serum or plasma urea nitrogen/creatinine mass ratio 28 NRG Serum or plasma creatinine measurement with calculation of estimated glomerular filtration rate > NRG Serum or plasma glucose measurement (mass/volume) 119 mg/dL 70-105 Serum or plasma calcium measurement (mass/volume) 9.5 mg/dL 8.5-10.1 Serum or plasma total bilirubin measurement (mass/volume) 0.6 mg/dL 0.1-1.0 Serum or plasma alkaline phosphatase measurement (enzymatic activity/volume) 69 U/L 40-136 Serum or plasma aspartate aminotransferase measurement (enzymatic activity/ volume) 23 U/L 5-34 Serum or plasma alanine aminotransferase measurement (enzymatic activity/volume ) 22 U/L 0-55 Serum or plasma protein measurement (mass/volume) 6.9 g/dL 6.4-8.2 Serum or plasma albumin measurement (mass/volume) 4.0 g/dL 3.2-4.5 Serum or plasma creatine kinase measurement (enzymatic activity/volume) - 06/22 01:45 Serum or plasma creatine kinase measurement (enzymatic activity/volume) 251 U/L 29-168 Serum or plasma creatine kinase MB measurement (enzymatic activity/volume) - 01:45 Serum or plasma creatine kinase MB measurement (enzymatic activity/volume) 3.9 ng/mL <6.6 Serum or plasma troponin i.cardiac measurement (mass/volume) - 06/22/16 01:45 Serum or plasma troponin i.cardiac measurement (mass/volume) < ng/mL <0.30 Serum or plasma amylase measurement (enzymatic activity/volume) - 06/22/16 01: 45 Serum or plasma amylase measurement (enzymatic activity/volume) 115 U/L 25-125 Lipase - 06/22/16 01:45 Lipase 87 U/L 8-78 Serum or plasma lithium measurement (moles/volume) - 06/22/16 01:45 BNP level 45.7 pg/mL <100.0 Serum or plasma troponin i.cardiac measurement (mass/volume) - 06/22/16 08:25 Serum or plasma troponin i.cardiac measurement (mass/volume) < ng/mL <0.30 Myoglobin, serum - 06/22/16 08:25 Myoglobin, serum 80.1 ng/mL 10.0-92.0 Lipid 1996 panel - 06/22/16 08:25 Serum or plasma triglyceride measurement (mass/volume) 62 mg /dL <150 Serum or plasma cholesterol measurement (mass/volume) 134 mg /dL < 200 Serum or plasma cholesterol in HDL measurement (mass/volume) 60 mg/dL 40-60 Cholesterol in LDL [mass/volume] in serum or plasma by direct assay 58 mg/dL 1-129 Serum or plasma cholesterol in VLDL measurement (mass/volume) 12 mg/dL 5-40 Complete blood count (CBC) with automated white blood cell (WBC) differential - 06/24/16 04:15 Blood leukocytes automated count (number/volume) 8.9 10*3/ uL 4.3-11.0 Blood erythrocytes automated count (number/volume) 3.44 10*6 /uL 4.35-5.85 Venous blood hemoglobin measurement (mass/volume) 10.2 g/dL 11.5-16.0 Blood hematocrit (volume fraction) 30 % 35-52 Automated erythrocyte mean corpuscular volume 86 [foz_us] 80-99 Automated erythrocyte mean corpuscular hemoglobin (mass per erythrocyte) 30 pg 25-34 Automated erythrocyte mean corpuscular hemoglobin concentration measurement ( mass/volume) 35 g/dL 32-36 Automated erythrocyte distribution width ratio 12.3 % 10.0-14.5 Automated blood platelet count (count/volume) 222 10*3/uL 130-400 Automated blood platelet mean volume measurement 9.9 [foz_us ] 7.4-10.4 Automated blood neutrophils/100 leukocytes 78 % 42-75 Automated blood lymphocytes/100 leukocytes 14 % 12-44 Blood monocytes/100 leukocytes 7 % 0-12 Automated blood eosinophils/100 leukocytes 1 % 0-10 Automated blood basophils/100 leukocytes 0 % 0-10 Blood neutrophils automated count (number/volume) 6.9 10*3 1.8-7.8 Blood lymphocytes automated count (number/volume) 1.3 10*3 1.0-4.0 Blood monocytes automated count (number/volume) 0.6 10*3 0.0-1.0 Automated eosinophil count 0.1 10*3/uL 0.0-0.3 Automated blood basophil count (count/volume) 0.0 10*3/uL 0.0-0.1 Whole blood basic metabolic panel - 06/24/16 04:25 Serum or plasma sodium measurement (moles/volume) 131 mmol/ L 135-145 Serum or plasma potassium measurement (moles/volume) 3.7 mmol/L 3.6-5.0 Serum or plasma chloride measurement (moles/volume) 100 mmol /L 98-107 Carbon dioxide 21 mmol/L 21-32 Serum or plasma anion gap determination (moles/volume) 10 mmol/L 5-14 Serum or plasma urea nitrogen measurement (mass/volume) 15 mg/dL 7-18 Serum or plasma creatinine measurement (mass/volume) 0.68 mg /dL 0.60-1.30 Serum or plasma urea nitrogen/creatinine mass ratio 22 NRG Serum or plasma creatinine measurement with calculation of estimated glomerular filtration rate > NRG Serum or plasma glucose measurement (mass/volume) 107 mg/dL 70-105 Serum or plasma calcium measurement (mass/volume) 8.4 mg/dL 8.5-10.1 Serum or plasma phosphate measurement (mass/volume) - 06/24/16 04:25 Serum or plasma phosphate measurement (mass/volume) 1.7 mg/ dL 2.3-4.7 Magnesium - 06/24/16 04:25 Magnesium 1.7 mg/dL 1.8-2.4 Complete blood count (CBC) with automated white blood cell (WBC) differential - 02/05/17 09:30 Blood leukocytes automated count (number/volume) 8.3 10*3/ uL 4.3-11.0 Blood erythrocytes automated count (number/volume) 3.53 10*6 /uL 4.35-5.85 Venous blood hemoglobin measurement (mass/volume) 10.1 g/dL 11.5-16.0 Blood hematocrit (volume fraction) 30 % 35-52 Automated erythrocyte mean corpuscular volume 85 [foz_us] 80-99 Automated erythrocyte mean corpuscular hemoglobin (mass per erythrocyte) 29 pg 25-34 Automated erythrocyte mean corpuscular hemoglobin concentration measurement ( mass/volume) 34 g/dL 32-36 Automated erythrocyte distribution width ratio 14.3 % 10.0-14.5 Automated blood platelet count (count/volume) 191 10*3/uL 130-400 Automated blood platelet mean volume measurement 9.7 [foz_us ] 7.4-10.4 Automated blood neutrophils/100 leukocytes 80 % 42-75 Automated blood lymphocytes/100 leukocytes 10 % 12-44 Blood monocytes/100 leukocytes 9 % 0-12 Automated blood eosinophils/100 leukocytes 1 % 0-10 Automated blood basophils/100 leukocytes 0 % 0-10 Blood neutrophils automated count (number/volume) 6.7 10*3 1.8-7.8 Blood lymphocytes automated count (number/volume) 0.8 10*3 1.0-4.0 Blood monocytes automated count (number/volume) 0.8 10*3 0.0-1.0 Automated eosinophil count 0.0 10*3/uL 0.0-0.3 Automated blood basophil count (count/volume) 0.0 10*3/uL 0.0-0.1 Comprehensive metabolic panel - 02/05/17 09:30 Serum or plasma sodium measurement (moles/volume) 130 mmol/ L 135-145 Serum or plasma potassium measurement (moles/volume) 4.4 mmol/L 3.6-5.0 Serum or plasma chloride measurement (moles/volume) 95 mmol/ L 98-107 Carbon dioxide 26 mmol/L 21-32 Serum or plasma anion gap determination (moles/volume) 9 mmol/L 5-14 Serum or plasma urea nitrogen measurement (mass/volume) 18 mg/dL 7-18 Serum or plasma creatinine measurement (mass/volume) 0.76 mg /dL 0.60-1.30 Serum or plasma urea nitrogen/creatinine mass ratio 24 0-20 Serum or plasma creatinine measurement with calculation of estimated glomerular filtration rate > NRG Serum or plasma glucose measurement (mass/volume) 118 mg/dL 70-105 Serum or plasma calcium measurement (mass/volume) 9.9 mg/dL 8.5-10.1 Serum or plasma total bilirubin measurement (mass/volume) 0.9 mg/dL 0.1-1.0 Serum or plasma alkaline phosphatase measurement (enzymatic activity/volume) 52 U/L 40-136 Serum or plasma aspartate aminotransferase measurement (enzymatic activity/ volume) 18 U/L 5-34 Serum or plasma alanine aminotransferase measurement (enzymatic activity/volume ) 24 U/L 0-55 Serum or plasma protein measurement (mass/volume) 6.7 g/dL 6.4-8.2 Serum or plasma albumin measurement (mass/volume) 3.6 g/dL 3.2-4.5 Erythrocyte sedimentation rate by westergren method - 02/05/17 09:30 Erythrocyte sedimentation rate by westergren method 75 mm 0-30 Encounters ACCT No. Visit Date/Time Discharge Status Pt. Type Provider Facility Loc./Unit Complaint [id number] 02/05/2017 08:35:00 2016 10:55:00 DIS Emergency GARLAND HOOVER MD [facility] ER JOINT ACHES/FEET AND HANDS SWOLLEN [id number] 10/31/2016 08:18:00 2016 10:56:00 DIS Outpatient JESSICA LOCKWOOD MD [facility] ENDO ANEMIA;OCCULT POSITIVE [id number] 10/21/2016 06:58:00 2016 09:20:00 DIS Outpatient JESSICA LOCKWOOD MD [facility] ENDO ANEMIA FROM GI BLEED [id number] 10/17/2016 05:42:00 2016 13:10:00 DIS Outpatient JESSICA LOCKWOOD MD [facility] PREOP ANEMIA FROM GI BLEED [id number] 07/18/2016 08:30:00 2016 00:01:00 DIS Outpatient Dodie RIVERA MD [facility] CARD EVENT MONITOR [id number] 07/11/2016 00:19:00 2015 01:27:00 DIS Emergency CARMELLA MONTILLA DO [facility] ER LEFT HAND PAIN [id number] 06/23/2016 08:50:00 2015 15:55:00 DIS Inpatient ARTUR DENG MD [facility] ICU L ARM PAIN AND HAND PARESTHESIAS; UNCONTROLLED HTN [id number] 02/23/2015 10:39:00 2014 23:59:59 CLS Outpatient ARTUR DENG MD [facility] RAD SCREENING [id number] 02/15/2014 10:43:00 2013 23:59:59 CLS Outpatient ARTUR DENG MD [facility] RAD SCREENING [id number] 09/29/2013 10:21:00 2013 11:05:00 DIS Outpatient ARTUR DENG MD [facility] REHAB CERVICALGIA [id number] 10/26/2013 10:54:00 2013 23:59:59 CLS Outpatient ARTUR DENG MD [facility] RAD CERVIAGLIA [id number] 09/15/2013 14:10:00 2013 00:01:00 DIS Outpatient ARTUR DENG MD [facility] REHAB CERVICALGIA [id number] 01/05/2013 09:49:00 2012 23:59:59 CLS Outpatient BRADFORD MCKEON APRN [facility] RAD SCREENING [id number] 12/08/2016 14:32:00 ACT Outpatient ARTUR DENG MD [facility] RAD RHUEMATOID ARTHRITIS [id number] 10/31/2016 08:22:00 ACT Outpatient ARTUR DENG MD [facility] LAB M12.9 [id number] 10/29/2016 05:38:00 ACT Outpatient JESSICA LOCKWOOD MD [facility] PREOP ANEMIA; OCCULT POSITIVE [id number] 10/17/2016 13:06:00 Document Registration [id number] 09/23/2016 16:00:00 PEN Preadmit Dodie RIVERA MD [facility] CARD EVENT MONITOR [id number] 07/30/2016 09:39:00 ACT Outpatient ARTUR DENG MD [facility] RAD CAROTID BRUIT, LT HAND TINGLING/WEAKNESS [id number] 03/14/2016 11:25:00 ACT Outpatient BRADFORD MCKEON APRN [facility] RAD SCREENING [id number] 12/06/2012 06:19:00 Document Registration [id number] 11/30/2012 09:41:00 Document Registration [id number] 06/30/2012 08:05:00 Document Registration [id number] 06/01/2012 08:45:00 Document Registration [id number] 01/02/2012 08:10:00 Document Registration
== END 2017-02-05 10:55 | disposition home or self-care (01) ==
LOC: EDUNIT# 08:32 → ER 08:35
DX: M35.3 Polymyalgia rheumatica (principal); I10 Essential (primary) hypertension; Z98.890 Other specified postprocedural states
CPT/HCPCS: 36415; 80053; 85025; 85652; 99281

== ENCOUNTER → 2017-03-20 | Outpatient (CLI) | payer MEDICARE ==
[~2017-03-20] MED LIST changes: +PRD20T PO
--- NOTE | 2017-03-20 14:15 | Diagnostic Imaging Report ---
EXAM: Bilateral foot radiographs, 3 views on each side. INDICATION: Chronic inflammatory arthritis. LEFT FOOT / FINDINGS: There is a healed prior osteotomy seen with internal fixation wire along the proximal aspect of the proximal phalanx of the great toe. Degenerative changes with osteophyte formation mostly involving the DIP joints with mild involvement of PIP joints is seen. There is fusion of the DIP joint in the little toe. There are small calcaneal spurs seen. RIGHT FOOT / FINDINGS:: Healed osteotomies and internal fixation wire and intraosseous nail is seen around the right MTP joint, probably related to prior hallux valgus corrective surgery. There is satisfactory joint alignment at this time. There is degenerative change at the DIP joints primarily of the second and third toes. There is fusion of the DIP joint in the little toe. There is resorption of the distal aspect of the proximal phalanx of the little and fourth toes. This appears to be chronic with a question of a tiny component of active erosive change. Mild chronic erosions on the other side of the PIP joints at this level at the base of the middle phalanx of the fourth and the fifth toes is seen. Small calcaneal spurs are seen. IMPRESSION: 1. Degenerative changes at the DIP joints. 2. Mostly chronic erosive changes around the PIP joints in the right fourth and fifth toes mostly involving the proximal phalanx side with questionable tiny active erosive component. Consider possibility of seronegative arthritis such as psoriasis. Dictated by: Dictated on workstation # [id number]
--- NOTE | 2017-03-20 14:21 | Diagnostic Imaging Report ---
EXAM: Bilateral hand radiographs 3 views on each side. INDICATION: Inflammatory arthritis. RIGHT HAND / FINDINGS: Osteophytes, subchondral sclerosis and joint space narrowing seen, mostly at the DIP joint and at the carpometacarpal joint at the base of the thumb and the scaphoid trapezium joint is compatible with osteoarthritis. No evidence of erosive arthropathy. There are deformities in the middle phalanx of the second and third fingers suggestive of old healed trauma. Similarly, there is the suggestion of old healed fracture in the third metacarpal. There is widening of the scapholunate interval suggestive of underlying scapholunate ligament degeneration or tear, of indeterminate age. LEFT HAND / FINDINGS: There is less prominent osteoarthritis changes at similar joint distribution involving the DIP joints and the carpometacarpal joint at the base of the thumb, mild on the left side compared to moderate to severe on the right. No erosive arthritic changes seen. Overall, there is the suggestion of osteopenia. IMPRESSION: Findings compatible with osteoarthritis, moderate to severe, on the right and mild on the left. Dictated by: Dictated on workstation # [id number]
[2017-03-20 21:13] LABS: HEPATITIS B SURFACE AB INDEX <3.10 mIU/mL (>=10.00)
[2017-03-21 13:01] LABS: HEPATITIS B SURFACE AB INTERP Non-Immune (Immune)
[2017-03-21 13:08] LABS: C3 COMPLEMENT SERUM 172 mg/dL (73-183); C4 COMPLEMENT SERUM 28 mg/dL (15-59)
[2017-03-21 13:09] LABS: CYCLIC CITRULLUINATED PEPTIDE 2.7 Units (0.0-19.0)
[2017-03-21 14:25] LABS: SJOGRENS SSA ANTIBODIES <20 Units (0-19); SJOGRENS SSB ANTIBODIES <20 Units (0-19); SSA INTP Negative (Negative); SSB INTP Negative (Negative)
[2017-03-23 16:40] LABS: ANTI DNA DOUBLE STRANDED ABY 27 IU/mL (0-300)
== END ==
LOC: RAD 08:15
PROVIDERS: ATTEND Internal Medicine Rheumatology
DX: M19.071 Primary osteoarthritis, right ankle and foot (principal); M19.072 Primary osteoarthritis, left ankle and foot; M19.041 Primary osteoarthritis, right hand; M85.871 Other specified disorders of bone density and structure, right ankle and foot; Z79.899 Other long term (current) drug therapy
CPT/HCPCS: 36415; 85652; 86038; 86141; 86160; 86200; 86225; 86235; 86430; 86480; 86705; 86706; 86803; 87340

== ENCOUNTER → 2017-04-06 | Outpatient (CLI) | payer MEDICARE ==
[2017-04-08 02:32] LABS: LYME AB G M 0.02 Index (0.00-0.89)
[2017-04-08 08:16] LABS: LYME AB INTERP Negative (Negative)
[2017-04-08 08:26] LABS: TULAREMIA ANTIBODY <1:20
[2017-04-08 11:36] LABS: EHRLICHIA CHAFFEENSIS G ABY <1:16 (<1:16)
[2017-04-08 14:09] LABS: IGG ROCKY MOUNTAIN SPOTTED FEV <1:16 (<1:16); IGM ROCKY MOUNTAIN SPOTTED FEV <1:10 (<1:10)
== END ==
LOC: LAB 15:57
PROVIDERS: ATTEND Internal Medicine
DX: R53.83 Other fatigue (principal)
CPT/HCPCS: 36415; 86618; 86666; 86668; 86757

== ENCOUNTER → 2017-05-11 | Outpatient (CLI) | payer MEDICARE ==
[2017-05-12 23:23] LABS: TB GOLD QUANTIFERON INTERP Negative (Negative)
[2017-05-13 07:49] LABS: TB GOLD NIL VALUE 0.23 IU/mL (0.00-7.99); TB GOLD TB ANTIGEN-NIL VALUE <0.00 IU/mL (0.00-0.34)
== END ==
LOC: LAB 13:41
PROVIDERS: ATTEND Internal Medicine Rheumatology
DX: Z79.899 Other long term (current) drug therapy (principal)
CPT/HCPCS: 36415; 86480

== ENCOUNTER → 2017-05-15 | Outpatient (CLI) | payer MEDICARE ==
--- NOTE | 2017-05-18 11:25 | Diagnostic Imaging Report ---
Bilateral screening mammogram 2D views with tomosynthesis The current study was also evaluated with a Computer Aided Detection (CAD) system. Indication: Screening. No current complaints stated on the questionnaire. COMPARISON: 03/14/16 FINDINGS: The breasts are composed of heterogeneously dense parenchyma which may decrease mammographic sensitivity. Benign-appearing calcifications are seen. Allowing for technique and positional differences, no suspicious change is seen. IMPRESSION: Dense breasts with no definite change. ACR BI-RADS Category 2: Benign findings. Result letter will be mailed to the patient. Note: At least 10% of breast cancer is not imaged by mammography. Dictated by: Dictated on workstation # [id number]
== END ==
LOC: RAD 12:27
PROVIDERS: ATTEND Internal Medicine
DX: Z12.31 Encounter for screening mammogram for malignant neoplasm of breast (principal)
CPT/HCPCS: 77067

== ENCOUNTER → 2017-07-15 | Outpatient (CLI) | payer MEDICARE ==
[~2017-07-15] MED LIST changes: -METO-270 PO; +METO-387 PO; -NAPR500T3 PO; +NAPR500T4 PO
--- NOTE | 2017-07-15 16:08 | Diagnostic Imaging Report ---
INDICATION: Lower respiratory infection. PA and lateral chest. FINDINGS: Heart size and pulmonary vascularity are normal. Lungs are clear. There are no effusions or pneumothoraces. IMPRESSION: Negative chest. Dictated by: Dictated on workstation # [id number]
== END ==
LOC: RAD 15:44
PROVIDERS: ATTEND Nurse Practitioner
DX: J18.9 Pneumonia, unspecified organism (principal)
CPT/HCPCS: 71020

== ENCOUNTER 2017-09-16 09:28 | Outpatient (RCR) | payer MEDICARE ==
[~2017-09-16 09:28] MED LIST changes: +NAPR-915 PO; -NAPR500T4 PO
== END 2017-09-16 12:15 | disposition home or self-care (01) ==
PROVIDERS: ATTEND Nurse Practitioner
DX: R53.81 Other malaise (principal); R26.9 Unspecified abnormalities of gait and mobility

== ENCOUNTER 2017-10-07 17:30 | Emergency (ER) | payer MEDICARE ==
[~2017-10-07] VITALS: Ht 160 cm; Wt 72.6 kg
--- OUTSIDE RECORDS SUMMARY | 2017-10-07 17:36 | XMS REPORT | Continuity of Care Document ---
Author Author [facility] Organization [facility] Address Unknown Phone Unavailable Allergies Active Description Code Type Severity Reaction Onset Reported/Identified Relationship to Patient Clinical Status Yes NKANo Known Allergies NKA Miscellaneous Allergy Unknown N/A 06/08/2006 Yes No Known Drug Allergies [id number] Drug Allergy Unknown N/A 10/17/2016 Medications There is no data. 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] 07/14/2016 CARMELLA MONTILLA DO Ot Z79.899 OTHER SNF (CURRENT) DRUG THERAPY 07/24/2016 Dodie RIVERA MD [...] CABRERA Ot I48.91 UNSPECIFIED ATRIAL FIBRILLATION 09/23/2016 NICOLE ZARAGOZA, Dodie CABRERA Ot I48.91 UNSPECIFIED ATRIAL FIBRILLATION 09/28/2016 Dodie RIVERA MD Ot I48.91 UNSPECIFIED ATRIAL FIBRILLATION 10/17/2016 Dodie RIVERA MD Ot I48.91 UNSPECIFIED ATRIAL FIBRILLATION 10/20/2016 JESSICA LOCKWOOD MD Ot D64.9 ANEMIA, UNSPECIFIED 10/20/2016 JESSICA LOCKWOOD MD Ot K92.2 GASTROINTESTINAL HEMORRHAGE, UNSPECIFIED 10/20/2016 JESSICA LOCKWOOD MD Ot Z01.818 ENCOUNTER FOR OTHER PREPROCEDURAL EXAMIN 10/21/2016 JESSICA LOCKWOOD MD, Ot D64.9 ANEMIA, UNSPECIFIED 10/21/2016 JESSICA LOCKWOOD MD Ot K29.71 GASTRITIS, UNSPECIFIED, WITH BLEEDING 10/21/2016 JESSICA LOCKWOOD MD Ot K44.9 DIAPHRAGMATIC HERNIA WITHOUT OBSTRUCTION 10/21/2016 JESSICA LOCKWOOD MD Ot Z79.01 SANITATION DIRECTOR (CURRENT) USE OF ANTICOAGULANT 10/27/2016 JESSICA LOCKWOOD MD Ot D64.9 ANEMIA, UNSPECIFIED 10/27/2016 JSESICA LOCKWOOD MD Ot K29.71 GASTRITIS, UNSPECIFIED, WITH BLEEDING 10/27/2016 JESSICA LOCKWOOD MD Ot K44.9 DIAPHRAGMATIC HERNIA WITHOUT OBSTRUCTION 10/27/2016 JESSICA LOCKWOOD MD Ot Z79.01 SNF (CURRENT) USE OF ANTICOAGULANT 10/31/2016 JESSICA LOCKWOOD MD Ot D64.9 ANEMIA, UNSPECIFIED 10/31/2016 JESSICA LOCKWOOD MD Ot K57.30 DVRTCLOS OF LG INT W/O PERFORATION OR AB 10/31/2016 JESSICA LOCKWOOD MD Ot R19.5 OTHER FECAL ABNORMALITIES 11/03/2016 ARTUR DENG MD, Ot M12.9 ARTHROPATHY, UNSPECIFIED 11/24/2016 ARTUR DENG MD, Ot M12.9 ARTHROPATHY, UNSPECIFIED 12/10/2016 ISH MD, ARTUR D Ot M06.9 RHEUMATOID ARTHRITIS, UNSPECIFIED 12/31/2016 ISH ZARAGOZA, ARTUR Phelan Ot M06.9 RHEUMATOID ARTHRITIS, UNSPECIFIED 01/13/2017 ISH ZARAGOZA, ARTUR Phelan Ot M06.9 RHEUMATOID ARTHRITIS, UNSPECIFIED 02/05/2017 GARLAND HOOVER MD Ot I10 ESSENTIAL (PRIMARY) HYPERTENSION 02/05/2017 GARLAND HOOVER MD Ot M25.571 PAIN IN RIGHT ANKLE AND JOINTS OF RIGHT 02/05/2017 GARLAND HOOVER MD Ot 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 02/05/2017 GARLAND HOOVER MD Ot Z98.890 OTHER SPECIFIED POSTPROCEDURAL STATES 02/09/2017 GARLAND HOOVER MD Ot I10 ESSENTIAL (PRIMARY) HYPERTENSION 02/09/2017 GARLAND HOOVER MD Ot M25.571 PAIN IN RIGHT ANKLE AND JOINTS OF RIGHT 02/09/2017 GARLAND HOOVER MD Ot 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 02/09/2017 GARLAND HOOVER MD Ot Z98.890 OTHER SPECIFIED POSTPROCEDURAL STATES 02/11/2017 GARLAND HOOVER MD Ot I10 ESSENTIAL (PRIMARY) HYPERTENSION 02/11/2017 GARLAND HOOVER MD Ot M25.571 PAIN IN RIGHT ANKLE AND JOINTS OF RIGHT 02/11/2017 GARLAND HOOVER MD Ot 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 02/11/2017 GARLAND HOOVER MD Ot Z98.890 OTHER SPECIFIED POSTPROCEDURAL STATES 04/11/2017 CORRINE SALGADO MD Ot M19.041 PRIMARY OSTEOARTHRITIS, RIGHT HAND 04/11/2017 CORRINE SALGADO MD Ot M19.071 PRIMARY OSTEOARTHRITIS, RIGHT ANKLE AND 04/11/2017 CORRINE SALGADO MD Ot M19.072 PRIMARY OSTEOARTHRITIS, LEFT ANKLE AND F 04/11/2017 CORRINE SALGADO MD Ot M85.871 [facility] DISRD OF BONE DENSITY AND STRUCTURE, 04/11/2017 CORRINE SALGADO MD Ot Z79.899 OTHER SANITATION DIRECTOR (CURRENT) DRUG THERAPY 04/21/2017 CORRINE SALGADO MD Ot M19.041 PRIMARY OSTEOARTHRITIS, RIGHT HAND 04/21/2017 CORRINE SALGADO MD Ot M19.071 PRIMARY OSTEOARTHRITIS, RIGHT ANKLE AND 04/21/2017 CORRINE SALGADO MD, Ot M19.072 PRIMARY OSTEOARTHRITIS, LEFT ANKLE AND F 04/21/2017 CORRINE SALGADO MD, Ot M85.871 [facility] DISRD OF BONE DENSITY AND STRUCTURE, 04/21/2017 CORRINE SALGADO MD, Ot Z79.899 OTHER SNF (CURRENT) DRUG THERAPY 04/28/2017 ARTUR DENG MD Ot R53.83 OTHER FATIGUE 05/12/2017 CORRINE SALGADO MD, Ot Z79.899 OTHER SANITATION DIRECTOR (CURRENT) DRUG THERAPY 05/13/2017 CORRINE SALGADO MD, Ot Z79.899 OTHER SNF (CURRENT) DRUG THERAPY 06/02/2017 CORRINE SALGADO MD, Ot Z79.899 OTHER SNF (CURRENT) DRUG THERAPY 06/05/2017 ARTUR DENG MD Ot Z12.31 ENCNTR SCREEN MAMMOGRAM FOR MALIGNANT NE 08/05/2017 BRADFORD MCKEON APRN Ot J18.9 PNEUMONIA, UNSPECIFIED ORGANISM 08/13/2017 BRADFORD MCKEON APRN Ot J18.9 PNEUMONIA, UNSPECIFIED ORGANISM Procedures There is no data. Results Test Result Range Complete blood count (CBC) with automated white blood cell (WBC) differential - 06/22/16 01:45 Blood leukocytes automated count (number/volume) 10.9 10*3/uL 4.3-11.0 Blood erythrocytes automated count (number/volume) 3.87 10*6/uL 4.35-5.85 Venous blood hemoglobin measurement (mass/volume) 11.8 [...] Automated blood platelet mean volume measurement 9.9 [foz_us] 7.4-10.4 Automated blood neutrophils/100 leukocytes 80 % [...] Serum or plasma sodium measurement (moles/volume) 130 mmol/L 135-145 Serum or plasma potassium measurement (moles/volume) 4.2 mmol/L 3.6-5.0 Serum or plasma chloride measurement (moles/volume) 96 mmol/L 98-107 Carbon dioxide 20 mmol/L 21-32 Serum or plasma anion gap determination (moles/volume) 14 mmol/L 5-14 Serum or plasma urea nitrogen measurement (mass/volume) 24 mg/dL 7-18 Serum or plasma creatinine measurement (mass/volume) 0.85 mg/dL 0.60-1.30 Serum or plasma urea nitrogen/creatinine mass [...] or plasma troponin i.cardiac measurement (mass/volume) < ng/ mL <0.30 Serum or plasma amylase measurement (enzymatic activity/volume) - 06/22/16 01: 45 Serum or plasma amylase measurement (enzymatic activity/volume) 115 U/L 25-125 Lipase - 06/22/16 01:45 Lipase 87 U/L 8-78 Serum or plasma lithium measurement (moles/volume) - 06/22/16 01:45 BNP level 45.7 pg/mL <100.0 Serum or plasma troponin i.cardiac measurement (mass/volume) - 06/22/16 08:25 Serum or plasma troponin i.cardiac measurement (mass/volume) < ng/ mL <0.30 Myoglobin, serum - 06/22/16 08:25 Myoglobin, serum 80.1 ng/mL 10.0-92.0 Lipid 1996 panel - 06/22/16 08:25 Serum or plasma triglyceride measurement (mass/volume) 62 mg/dL <150 Serum or plasma cholesterol measurement (mass/volume) 134 mg/dL < 200 Serum or plasma cholesterol in HDL measurement (mass/volume) 60 mg/ dL 40-60 Cholesterol in LDL [mass/volume] in serum or plasma by direct assay 58 mg/dL 1-129 Serum or plasma cholesterol in VLDL measurement (mass/volume) 12 mg/ dL 5-40 Complete blood count (CBC) with automated white blood cell (WBC) differential - 06/24/16 04:15 Blood leukocytes automated count (number/volume) 8.9 10*3/uL 4.3-11.0 Blood erythrocytes automated count (number/volume) 3.44 10*6/uL 4.35-5.85 Venous blood hemoglobin measurement (mass/volume) 10.2 [...] Automated blood platelet mean volume measurement 9.9 [foz_us] 7.4-10.4 Automated blood neutrophils/100 leukocytes 78 % [...] Serum or plasma sodium measurement (moles/volume) 131 mmol/L 135-145 Serum or plasma potassium measurement (moles/volume) 3.7 mmol/L 3.6-5.0 Serum or plasma chloride measurement (moles/volume) 100 mmol/L 98-107 Carbon dioxide 21 mmol/L 21-32 Serum or plasma anion gap determination (moles/volume) 10 mmol/L 5-14 Serum or plasma urea nitrogen measurement (mass/volume) 15 mg/dL 7-18 Serum or plasma creatinine measurement (mass/volume) 0.68 mg/dL 0.60-1.30 Serum or plasma urea nitrogen/creatinine mass ratio 22 NRG Serum or plasma creatinine measurement with calculation of estimated glomerular filtration rate > NRG Serum or plasma glucose measurement (mass/volume) 107 mg/dL 70-105 Serum or plasma calcium measurement (mass/volume) 8.4 mg/dL 8.5-10.1 Serum or plasma phosphate measurement (mass/volume) - 06/24/16 04:25 Serum or plasma phosphate measurement (mass/volume) 1.7 mg/dL 2.3-4.7 Magnesium - 06/24/16 04:25 Magnesium 1.7 mg/dL 1.8-2.4 Complete blood count (CBC) with automated white blood cell (WBC) differential - 02/05/17 09:30 Blood leukocytes automated count (number/volume) 8.3 10*3/uL 4.3-11.0 Blood erythrocytes automated count (number/volume) 3.53 10*6/uL 4.35-5.85 Venous blood hemoglobin measurement (mass/volume) 10.1 [...] Automated blood platelet mean volume measurement 9.7 [foz_us] 7.4-10.4 Automated blood neutrophils/100 leukocytes 80 % [...] Serum or plasma sodium measurement (moles/volume) 130 mmol/L 135-145 Serum or plasma potassium measurement (moles/volume) 4.4 mmol/L 3.6-5.0 Serum or plasma chloride measurement (moles/volume) 95 mmol/L 98-107 Carbon dioxide 26 mmol/L 21-32 Serum or plasma anion gap determination (moles/volume) 9 mmol/L 5-14 Serum or plasma urea nitrogen measurement (mass/volume) 18 mg/dL 7-18 Serum or plasma creatinine measurement (mass/volume) 0.76 mg/dL 0.60-1.30 Serum or plasma urea nitrogen/creatinine mass ratio 24 0 -20 Serum or plasma creatinine measurement with calculation [...] rate by westergren method 75 mm 0-30 Serum or plasma C reactive protein measurement (mass/volume) - 03/20/17 09:14 Serum or plasma C reactive protein measurement (mass/volume) 9.13 mg /dL 0.00-0.50 Erythrocyte sedimentation rate by westergren method - 03/20/17 09:14 Erythrocyte sedimentation rate by westergren method 99 mm 0-30 Serum or plasma rheumatoid factor measurement (units/volume) - 03/20/17 09:14 Serum or plasma rheumatoid factor measurement (units/volume) NEGATIVE [id number] - 03/20/17 09:14 Screening antinuclear antibody (ARUN) assay by enzyme immunoassay <1: 80 <1:80 Serum DNA double strand antibody detection - 03/20/17 09:14 Serum DNA double strand antibody assay (units/volume) 27 [iU]/mL 0-300 Serum or plasma complement C3 measurement (mass/volume) - 03/20/17 09:14 Complement C3 nephritic [mass/volume] in serum or plasma 172 % 73-183 Complement C4 [mass/volume] in serum or plasma - 03/20/17 09:14 Complement C4 [mass/volume] in serum or plasma 28 % 15- 59 Hepatitis B virus core IgM antibody assay - 03/20/17 09:14 Hepatitis B virus core IgM antibody assay Non-Reactive Non-Reactive Body fluid hepatitis B virus surface antigen detection - 03/20/17 09:14 Confirmatory quantitative serum or plasma hepatitis B virus surface antigen measurement Non-Reactive Non-Reactive Serum hepatitis B virus surface antibody assay (units/volume) - 03/20/17 09:14 Serum hepatitis B virus surface antibody assay (units/volume) < % >=10.00 Serum hepatitis C virus antibody assay (units/volume) - 03/20/17 09:14 Serum hepatitis C virus antibody detection Non-Reactive Non-Reactive SS-A and SS-B antibody assay - 03/20/17 09:14 SS-A antibody assay < % 0-19 SS-B antibody assay Negative % Negative Serum cyclic citrullinated peptide antibody assay (units/volume) - 03/20/17 09: 14 Serum cyclic citrullinated peptide antibody assay (units/volume) 2.7 % 0.0-19.0 QUANTIFERON-TB GOLD - 03/20/17 09:14 QuantiFERON-TB test Indeterminate Negative Mitogen stimulated gamma interferon [units/volume] corrected for background in blood 0.14 [iU]/mL 0.00-7.99 Mitogen stimulated gamma interferon [units/volume] in blood 0.05 [iU ]/mL 0.50-10.00 Qualitative QuantiFERON-TB gold in tube test <0.00 0.00- 0.34 Tick identification panel - 04/06/17 16:06 Serum Ehrlichia chaffeensis IgG antibody detection <1:16 <1:16 Serum Ehrlichia chaffeensis IgM antibody detection <1:10 <1:10 Serum Rickettsia rickettsii IgG antibody assay (units/volume) < <1:16 [place] spotted fever panel < <1:10 Francisella tularensis antibody assay <1:20 NRG LYME AB G M 0.02 % 0.00-0.89 Interpretation of Lyme disease antibody assay Negative Negative QUANTIFERON-TB GOLD - 05/11/17 14:03 QuantiFERON-TB test Negative Negative Mitogen stimulated gamma interferon [units/volume] corrected for background in blood 0.23 [iU]/mL 0.00-7.99 Mitogen stimulated gamma interferon [units/volume] in blood 3.70 [iU ]/mL 0.50-10.00 Qualitative QuantiFERON-TB gold in tube test <0.00 0.00- 0.34 Encounters ACCT No. Visit Date/Time Discharge Status Pt. Type Provider Facility Loc./Unit Complaint [id number] 09/16/2017 09:28:00 09/16/2017 23:59:59 CLS Outpatient BRADFORD MCKEON APRN [facility] REHAB GAIT TRAINING [id number] 07/15/2017 15:44:00 07/15/2017 23:59:59 CLS Outpatient BRADFORD MCKEON APRN [facility] RAD J18.9 [id number] 05/15/2017 12:27:00 05/15/2017 23:59:59 CLS Outpatient ARTUR DENG MD [facility] RAD SCREENING [id number] 05/11/2017 13:41:00 05/11/2017 23:59:59 CLS Outpatient CORRINE SALGADO MD [facility] LAB Z79.899 [id number] 04/06/2017 15:57:00 04/06/2017 23:59:59 CLS Outpatient ARTUR DENG MD [facility] LAB T07 [id number] 03/20/2017 08:15:00 03/20/2017 23:59:59 CLS Outpatient CORRINE SALGADO MD [facility] RAD M19.90 [id number] 02/25/2017 09:42:00 02/25/2017 23:59:59 CLS Preadmit ARTUR DENG MD [facility] RAD SCREENING Z12.31 [id number] 02/05/2017 08:35:00 02/05/2017 10:55:00 DIS Emergency GARLAND HOOVER MD [facility] ER JOINT ACHES/FEET AND HANDS SWOLLEN [id number] 12/08/2016 14:32:00 12/08/2016 23:59:59 CLS Outpatient ARTUR DENG MD [facility] RAD RHUEMATOID ARTHRITIS [id number] 10/31/2016 08:22:00 10/31/2016 23:59:59 CLS Outpatient ARTUR DENG MD [facility] LAB M12.9 [id number] 10/31/2016 08:18:00 10/31/2016 10:56:00 DIS Outpatient JESSICA LOCKWOOD MD [facility] ENDO ANEMIA;OCCULT POSITIVE [id number] 10/29/2016 05:38:00 10/29/2016 23:59:59 CLS Outpatient JESSICA LOCKWOOD MD [facility] PREOP ANEMIA; OCCULT POSITIVE [id number] 10/21/2016 06:58:00 10/21/2016 09:20:00 DIS Outpatient JESSICA LOCKWOOD MD [facility] ENDO ANEMIA FROM GI BLEED [id number] 10/17/2016 05:42:00 10/17/2016 13:10:00 DIS Outpatient JESSICA LOCKWOOD MD [facility] PREOP ANEMIA FROM GI BLEED [id number] 09/23/2016 16:00:00 09/23/2016 23:59:59 CLS Preadmit Dodie RIVERA MD [facility] CARD EVENT MONITOR [id number] 07/18/2016 08:30:00 09/22/2016 00:01:00 DIS Outpatient Dodie RIVERA MD [facility] CARD EVENT MONITOR [id number] 07/30/2016 09:39:00 07/30/2016 23:59:59 CLS Outpatient ARTUR DENG MD [facility] RAD CAROTID BRUIT, LT HAND TINGLING/WEAKNESS [id number] 07/11/2016 00:19:00 07/11/2016 01:27:00 DIS Emergency CARMELLA MONTILLA DO [facility] ER LEFT HAND PAIN [id number] 06/23/2016 08:50:00 06/24/2016 15:55:00 DIS Inpatient ARTUR DENG MD [facility] ICU L ARM PAIN AND HAND PARESTHESIAS; UNCONTROLLED HTN [id number] 03/14/2016 11:25:00 03/14/2016 23:59:59 CLS Outpatient BRADFORD MCKEON APRN [facility] RAD SCREENING [id number] 02/23/2015 10:39:00 02/23/2015 23:59:59 CLS Outpatient ARTUR DENG MD [facility] RAD SCREENING [id number] 02/15/2014 10:43:00 02/15/2014 23:59:59 CLS Outpatient ARTUR DENG MD [facility] RAD SCREENING [id number] 09/29/2013 10:21:00 10/28/2013 11:05:00 DIS Outpatient ARTUR DENG MD [facility] REHAB CERVICALGIA [id number] 10/26/2013 10:54:00 10/26/2013 23:59:59 CLS Outpatient ARTUR DENG MD [facility] RAD CERVIAGLIA [id number] 09/15/2013 14:10:00 09/26/2013 00:01:00 DIS Outpatient ARTUR DENG MD [facility] REHAB CERVICALGIA [id number] 01/05/2013 09:49:00 01/05/2013 23:59:59 CLS Outpatient BRADFORD MCKEON APRN [facility] RAD SCREENING [id number] 10/17/2016 13:06:00 Document Registration [id number] 12/06/2012 06:19:00 Document Registration [id number] 11/30/2012 09:41:00 Document Registration [id number] 06/30/2012 08:05:00 Document Registration [id number] 06/01/2012 08:45:00 Document Registration [id number] 01/02/2012 08:10:00 Document Registration
[2017-10-07 18:13] LABS: BASOPHILS % (AUTO) 0 % (0-10); EOSINOPHILS # (AUTO) 0.1 10^3/uL (0.0-0.3); EOSINOPHILS % (AUTO) 1 % (0-10); HEMATOCRIT 33 % (35-52); HEMOGLOBIN 11.8 G/DL (11.5-16.0); LYMPHOCYTES # (AUTO) 1.4 X 10^3 (1.0-4.0); LYMPHOCYTES % (AUTO) 15 % (12-44); MEAN CORPUSCULAR HEMOGLOBIN 31 PG (25-34); MEAN CORPUSCULAR HGB CONC 36 G/DL (32-36); MEAN CORPUSCULAR VOLUME 86 FL (80-99); MONOCYTES # (AUTO) 0.7 X 10^3 (0.0-1.0); MONOCYTES % (AUTO) 8 % (0-12); NEUTROPHILS # (AUTO) 6.7 X 10^3 (1.8-7.8); NEUTROPHILS % (AUTO) 76 % (42-75); PLATELET COUNT 243 10^3/uL (130-400); RED BLOOD COUNT 3.82 10^6/uL (4.35-5.85); RED CELL DISTRIBUTION WIDTH 13.9 % (10.0-14.5); WHITE BLOOD COUNT 8.8 10^3/uL (4.3-11.0)
[2017-10-07] MEDS ORDERED: ENALAPRILAT 2.5 MG/2 ML (VASOTEC) VIAL IV ONE (18:15)
[2017-10-07] MEDS ORDERED: NITROGLYCERIN 2% OINT 1 GM UNIT DOSE PACKET TOP ONE (18:15)
--- NOTE | 2017-10-07 18:20 | ED Cardiac General ---
History of Present Illness General Chief Complaint: Cardiac/General Problems Stated Complaint: HIGH BP Nursing Triage Note: pt reports issues with htn since thursday. reports was seen at pcp office yesterday and placed on amlodipine. pt reports bp has not improved despite adding new medication. pt denies cp. Source: patient History of Present Illness Date Seen by Provider: Oct 07, 2017 Time Seen by Provider: 17:55 Initial Comments PT ARRIVES VIA POV FROM HOME C/O ELEVATED BP--WAS 201 SYSTOLIC AT HOME PT HAS BEEN CHECKING HER BP EVERY 2 HOURS STATES IT HAS BEEN ELEVATED AT HOME SAW INFANT BABYSITTER AT DR. DENG'S OFFICE YESTERDAY AND IT WAS ELEVATED, SO WAS STARTED ON AMLODIPINE--TOOK 1 DOSE LAST PM, TOOK SECOND DOSE AT 1400 TODAY HAS CONTINUED TO CHECK HER BP A MULTITUDE OF TIMES A DAY AND BP HAS CONTINUED TO ELEVATED EVERY TIME SHE CHECKS IT. INFANT BABYSITTER TOLD HER YESTERDAY THAT IF IT GOT TO 200, SHE NEEDED TO GO TO ER NO CHEST PAIN STATES SHE HAS CHRONIC SHORTNESS OF BREATH, AND IS NOT ANY DIFFERENT TODAY NO PALPITATIONS NO CHANGES IN CHRONIC ANKLE SWELLING NO VISION CHANGES STATES SHE MIGHT HAVE A SLIGHT HEADACHE OTHERWISE FEELS FINE. PCP: DR. DENG Allergies and Home Medications Allergies Coded Allergies: No Known Drug Allergies (Unverified , 10/17/16) Home Medications Alendronate Sodium 70 Mg Tablet, 70 MG PO We, (Reported) ON HOLD FOR 6 MONTHS BEGINNING Atorvastatin Calcium 10 Mg Tablet, 10 MG PO DAILY, (Reported) Calcium Carbonate 600 Mg Tablet, 1,200 MG PO DAILY, (Reported) Carvedilol 12.5 Mg Tablet, 12.5 MG PO BID for 30 Days Prescribed by: CORY BHAT on 06/24/161520 Fish Oil/Dha/Epa 1 Each Capsule, 1,200 MG PO BID, (Reported) Hydrochlorothiazide 12.5 Mg Capsule, 12.5 MG PO DAILY for 30 Days Prescribed by: CORY BHAT on 06/24/161520 Lisinopril 20 Mg Tablet, 40 MG PO DAILY for 30 Days Prescribed by: CORY BHAT on 06/24/161520 Lutein 20 Mg Tablet, 20 MG PO DAILY, (Reported) Metoprolol Succinate 25 Mg Tab.er.24h, 25 MG PO BID, (Reported) Multivitamins-Min/FA/Ginkgo 1 Each Tablet, 1 TAB PO DAILY, (Reported) Prednisone 20 Mg Tab, 1 MG PO EVERY MORNING, #20 2 tabs each a.m. 3 days then 1 tab each a.m. Prescribed by: GARLAND HOOVER on 02/05/17 1044 Vit C/Vit E/Lutein/Min/[place]-3 1 Each Capsule, 1 CAP PO DAILY, (Reported) Review of Systems Constitutional: no symptoms reported, No dizziness EENTM: No Symptoms Reported Respiratory: See HPI Cardiovascular: See HPI, Denies Chest Pain, Denies Irregular Heart Rate, Denies Lightheadedness, Denies Palpitations, Denies Syncope Gastrointestinal: No Symptoms Reported Genitourinary: No Symptoms Reported Musculoskeletal: no symptoms reported Psychiatric/Neurological: See HPI Endocrine: No Symptoms Reported Hematologic/Lymphatic: No Symptoms Reported Past Bcqahqd-[id number]-Rvuwcx Hx Patient Social History Alcohol Use: Denies Use Recreational Drug Use: No Smoking Status: Never a Smoker Recent Foreign Travel: No Contact w/Someone Who Travel: No Recent Infectious Disease Expo: No Recent Hopitalizations: No Physical Abuse: No Sexual Abuse: No Mistreated: No Fear: No Immunizations Up To Date Tetanus Booster (TDap): More than 5yrs Date of Pneumonia Vaccine: Jul 26, 2016 Date of Influenza Vaccine: Jul 26, 2016 Seasonal Allergies Seasonal Allergies: No Surgeries History of Surgeries: Yes (FEET, CARPAL TUNNEL ; EGD/COLONOSCOPY) Surgeries: Orthopedic Respiratory History of Respiratory Disorde: No Cardiovascular History of Cardiac Disorders: Yes (PAROXYSMAL ATRIAL FIBRILLATION) Cardiac Disorders: Atrial Fibrillation, Chronic Edema/Swelling, High Cholesterol, Hypertension Neurological History of Neurological Disord: No Reproductive System Hx Reproductive Disorders: No Sexually Transmitted Disease: No HIV/AIDS: No TURN OUT History: Menopausal Genitourinary History of Genitourinary Disor: No Gastrointestinal History of Gastrointestinal Di: Yes (HEMOCCULT + STOOLS) Musculoskeletal History of Musculoskeletal Dis: Yes (LEFT KNEE BURSITIS; ?POLYMYALGIA RHEUMATICA? ; CARPAL TUNNEL) Musculoskeletal Disorders: Osteoporosis, Arthritis, Chronic Back Pain Endocrine History of Endocrine Disorders: No HEENT History of HEENT Disorders: Yes 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, Bilateral Hearing Aide Cancer History of Cancer: No Psychosocial History of Psychiatric Problem: No Suicide Risk Score: 0 Integumentary History of Skin or Integumenta: No Blood Transfusions History of Blood Disorders: Yes (ANEMIA) Adverse Reaction to a Blood Tr: No (N/A) Physical Exam Vital Signs Vital Signs - First Documented 10/07/17 17:53 Temp 98.2 Pulse 94 Resp 20 B/P (MAP) 204/103 (136) Pulse Ox 97 Capillary Refill : Less Than 3 Seconds General Appearance: No Apparent Distress, WD/WN Neck: Full Range of Motion, Normal Inspection, Non Tender, Supple, No Carotid Bruit, No JVD Respiratory: Normal Breath Sounds, No Accessory Muscle Use, No Respiratory Distress Cardiovascular: Regular Rate, Rhythm, No JVD, No Murmur, Normal Peripheral Pulses Gastrointestinal: Normal Bowel Sounds, No Organomegaly, No Pulsatile Mass, Non Tender, Soft Extremity: Normal Capillary Refill, Normal Range of Motion, Non Tender, No Calf Tenderness, Pedal Edema (1+ BILATERALLY), Other (MILD SWELLING OF WRIST JOINTS) Neurologic/Psychiatric: Alert, Oriented x3, No Motor/Sensory Deficits, Normal Mood/Affect, pens and pencils dipper II-XII Norm as Tested Skin: Normal Color, Warm/Dry Progress/Results/Core Measures Results/Orders Lab Results Laboratory Tests Test 10/07/17 18:01 Range/Units White Blood Count 8.8 4.3-11.0 10^3/uL Red Blood Count 3.82 L 4.35-5.85 10^6/uL Hemoglobin 11.8 11.5-16.0 G/DL Hematocrit 33 L 35-52 % Mean Corpuscular Volume 86 80-99 FL Mean Corpuscular Hemoglobin 31 25-34 PG Mean Corpuscular Hemoglobin Concent 36 32-36 G/DL Red Cell Distribution Width 13.9 10.0-14.5 % Platelet Count 243 130-400 10^3/uL Mean Platelet Volume 10.0 7.4-10.4 FL Neutrophils (%) (Auto) 76 H 42-75 % Lymphocytes (%) (Auto) 15 12-44 % Monocytes (%) (Auto) 8 0-12 % Eosinophils (%) (Auto) 1 0-10 % Basophils (%) (Auto) 0 0-10 % Neutrophils # (Auto) 6.7 1.8-7.8 X 10^3 Lymphocytes # (Auto) 1.4 1.0-4.0 X 10^3 Monocytes # (Auto) 0.7 0.0-1.0 X 10^3 Eosinophils # (Auto) 0.1 0.0-0.3 10^3/uL Basophils # (Auto) 0.0 0.0-0.1 10^3/uL Prothrombin Time 13.7 12.2-14.7 SEC INR Comment 1.0 0.8-1.4 Activated Partial Thromboplast Time 37 H 24-35 SEC Sodium Level 129 L 135-145 MMOL/L Potassium Level 4.1 3.6-5.0 MMOL/L Chloride Level 95 L 98-107 MMOL/L Carbon Dioxide Level 22 21-32 MMOL/L Anion Gap 12 5-14 MMOL/L Blood Urea Nitrogen 18 7-18 MG/DL Creatinine 0.82 0.60-1.30 MG/DL Estimat Glomerular Filtration Rate > 60 BUN/Creatinine Ratio 22 Glucose Level 103 70-105 MG/DL Calcium Level 9.6 8.5-10.1 MG/DL Magnesium Level 1.6 L 1.8-2.4 MG/DL Total Bilirubin 0.9 0.1-1.0 MG/DL Aspartate Amino Transf (AST/SGOT) 19 5-34 U/L Alanine Aminotransferase (ALT/SGPT) 17 0-55 U/L Alkaline Phosphatase 53 40-136 U/L Troponin I < 0.30 <0.30 NG/ML B-Type Natriuretic Peptide 44.6 <100.0 PG/ML Total Protein 7.0 6.4-8.2 GM/DL Albumin 4.1 3.2-4.5 GM/DL TSH [place] Testing 2.16 0.35-4.94 UIU/ML My Orders Orders - HALI DARLING DO Saline Lock/Iv-Start (10/07/17 17:54) Ekg Tracing (10/07/17 17:54) Monitor-Rhythm Ecg Trace Only (10/07/17 17:54) BNP (10/07/17 17:54) Cbc With Automated Diff (10/07/17 17:54) Comprehensive Metabolic Panel (10/07/17 17:54) Magnesium (10/07/17 17:54) Protime With Inr (10/07/17 17:54) Partial Thromboplastin Time (10/07/17 17:54) Thyroid Analyzer (10/07/17 17:54) Troponin I (10/07/17 17:54) Enalaprilat Injection (Vasotec Injection (10/07/17 18:15) Nitroglycerin Ointment (Nitrobid Ointme (10/07/17 18:15) Chest 1 View, Ap/Pa Only (10/07/17 18:35) Magnesium Oxide Tablet (Mag Ox Tablet) (10/07/17 19:15) Medications Given in ED Current Medications Medications Dose Ordered Sig/Owen Route Start Time Stop Time Status Last Admin Dose Admin Enalaprilat 2.5 mg ONCE ONCE IV 10/07/17 18:15 10/07/17 18:16 DC 10/07/17 18:22 2.5 MG Magnesium Oxide 1,200 mg ONCE ONCE PO 10/07/17 19:15 10/07/17 19:16 DC 10/07/17 19:42 1,200 MG Nitroglycerin 1 inch ONCE ONCE TOP 10/07/17 18:15 10/07/17 18:16 DC 10/07/17 18:21 1 INCH Vital Signs/I&O Vital Sign - Last 12Hours 10/07/17 10/07/17 17:53 20:36 Temp 98.2 Pulse 94 90 Resp 20 20 B/P (MAP) 204/103 (136) 149/80 Pulse Ox 97 98 Blood Pressure Mean: 136 Progress Note : Progress Note UNEVENTFUL ER STAY. PT ASYMPTOMATIC BP DOWN TO 147/80 PRIOR TO DISMISSAL ECG Initial ECG Impression Date: Oct 07, 2017 Initial ECG Impression Time: 18:25 Initial ECG Rate: 84 Initial ECG Rhythm: Normal Sinus Initial ECG Impression: Normal Diagnostic Imaging Comments CXR--MILD BIBASILAR ATELECTASIS, PER RADIOLOGIST REPORT Reviewed: Reviewed by Me Departure Impression Impression: Primary Impression: Uncontrolled hypertension Additional Impressions: Hyponatremia Hypomagnesemia Disposition: HOME, SELF-CARE Condition: Improved Departure-Patient Inst. Referrals: ARTUR DENG MD (PCP) Primary Care Physician Patient Instructions: High Blood Pressure (DC), Hyponatremia (DC), Low Magnesium Level (DC) Add. Discharge Instructions: FOLLOW UP WITH DR. DENG ON THURSDAY OR THURSDAY CONTINUE YOUR REGULAR MEDICATIONS PRESCRIBED RETURN TO ER IF YOU DEVELOP CHEST PAIN, SEVERE HEADACHE, VISION CHANGES, NUMBNESS OR TINGLING OR LOSS OF MOVEMENT, SEVERE DIZZINESS, IRREGULAR HEART BEAT , OR YOU PASS OUT All discharge instructions reviewed with patient and/or family. Voiced understanding. HALI DARLING DO Oct 07, 2017 18:20
[2017-10-07 18:21] LABS: PROTHROMBIN TIME PATIENT 13.7 SEC (12.2-14.7)
[2017-10-07 18:32] LABS: ALANINE AMINOTRANSFERASE 17 U/L (0-55); ALBUMIN 4.1 GM/DL (3.2-4.5); ALKALINE PHOSPHATASE 53 U/L (40-136); BILIRUBIN,TOTAL 0.9 MG/DL (0.1-1.0); BUN/CREATININE RATIO 22; CALCIUM 9.6 MG/DL (8.5-10.1); CARBON DIOXIDE 22 MMOL/L (21-32); CHLORIDE 95 MMOL/L (98-107); CREATININE SERUM 0.82 MG/DL (0.60-1.30); GFR ESTIMATED > 60; GLUCOSE 103 MG/DL (70-105); MAGNESIUM 1.6 MG/DL (1.8-2.4); POTASSIUM 4.1 MMOL/L (3.6-5.0); SODIUM 129 MMOL/L (135-145)
[2017-10-07 18:51] LABS: TSH (THYROID ANALYZER) 2.16 UIU/ML (0.35-4.94)
[2017-10-07] MEDS ORDERED: MAGNESIUM OXIDE (MAG-OX)400 MG TAB PO ONE (19:15)
--- NOTE | 2017-10-07 19:17 | Diagnostic Imaging Report ---
INDICATION: Hypertension. TECHNIQUE: Single view chest, 6:42 p.m. CORRELATION STUDY: 07/15/2017. FINDINGS: Heart size, mediastinum and vasculature are stable. Minimal scarring or atelectasis at the right costophrenic angle as well as discoid atelectasis at the left lung base. Lungs parada are otherwise relatively clear. No infiltrate. IMPRESSION: Mild bibasilar atelectasis. Dictated by: Dictated on workstation # [id number]
[2017-10-07 20:36] VITALS: BP 149/80
== END 2017-10-07 20:36 | disposition home or self-care (01) ==
LOC: EDUNIT# 17:30 → ER 17:31
DX: I10 Essential (primary) hypertension (principal); E87.1 Hypo-osmolality and hyponatremia; E83.42 Hypomagnesemia; I48.0 Paroxysmal atrial fibrillation; E78.00 Pure hypercholesterolemia, unspecified; M81.0 Age-related osteoporosis without current pathological fracture; Z79.52 Long term (current) use of systemic steroids
CPT/HCPCS: 36415; 71045; 80053; 83735; 83880; 84443; 84484; 85025; 85610; 85730; 93005; 93041; 96374

== ENCOUNTER → 2017-11-21 | Outpatient (CLI) | payer MEDICARE ==
--- NOTE | 2017-11-21 12:57 | Diagnostic Imaging Report ---
INDICATION: Thoracic back pain and lumbar back pain. FINDINGS: There is a dextroscoliotic curvature of the lumbar spine with apex at the L3 level. Lateral alignment appears within normal limits. There are advanced multilevel degenerative endplate changes with severe sclerosis and disc space height loss at L3-4, L4-5 and L5-S1. Vertebral body heights appear maintained. There is advanced lower lumbar facet arthropathy. IMPRESSION: 1. Lumbar dextroscoliosis with severe multilevel degenerative disc disease with disc space height loss, endplate sclerosis and advanced lower lumbar facet arthropathy. The vertebral body heights appear maintained. Dictated by: Dictated on workstation # [id number]
--- NOTE | 2017-11-21 12:58 | Diagnostic Imaging Report ---
INDICATION: Mid back pain. Findings: There is a lumbar dextro scoliosis on comparison exam. Compensatory levoscoliosis of the lower thoracic spine demonstrated. Lateral alignment is normal. Vertebral body heights appear maintained. There are moderate multilevel degenerative endplate changes present throughout the thoracic spine. All pedicles are evident on the AP view. The visualized portion of lungs clear. IMPRESSION: 1. Thoracic levoscoliosis with moderate multilevel degenerative endplate changes throughout the thoracic spine. Vertebral body heights maintained and lateral alignment appears normal. Dictated by: Dictated on workstation # [id number]
== END ==
LOC: RAD 12:26
PROVIDERS: ATTEND Nurse Practitioner Family
DX: M41.86 Other forms of scoliosis, lumbar region (principal); M41.84 Other forms of scoliosis, thoracic region; M51.36 Other intervertebral disc degeneration, lumbar region; M46.86 Other specified inflammatory spondylopathies, lumbar region
CPT/HCPCS: 72072; 72100

== ENCOUNTER → 2017-11-30 | Outpatient (CLI) | payer MEDICARE ==
--- NOTE | 2017-11-30 15:35 | Diagnostic Imaging Report ---
INDICATION: Hypertension. Comparison is made with prior examination from 10/07/17. PA and lateral views of the chest were obtained. FINDINGS: Heart size is normal. Lungs are clear. There is no pleural effusion or pneumothorax. Mediastinum is unremarkable. IMPRESSION: No acute cardiopulmonary abnormality. Dictated by: Dictated on workstation # [id number]
== END ==
LOC: RAD 13:21
PROVIDERS: ATTEND Internal Medicine
DX: R06.00 Dyspnea, unspecified (principal); I10 Essential (primary) hypertension
CPT/HCPCS: 71046

== ENCOUNTER → 2018-01-06 | Outpatient (CLI) | payer MEDICARE | LOC: CARD 12:46 | PROVIDERS: ATTEND Internal Medicine Interventional Cardiology | DX: I48.91 Unspecified atrial fibrillation (principal); E78.5 Hyperlipidemia, unspecified; I10 Essential (primary) hypertension; R53.83 Other fatigue; R06.02 Shortness of breath; I49.3 Ventricular premature depolarization | CPT/HCPCS: 93306 ==

== ENCOUNTER → 2018-01-25 | Outpatient (CLI) | payer MEDICARE ==
[~2018-01-25] MED LIST changes: +IOHEXOL 350 MG/ML 150 ML (OMNIPAQUE 350) VIAL IV ONE; +NS 250 ML (IVPB) BAG IV ONE
--- NOTE | 2018-01-25 13:11 | Diagnostic Imaging Report ---
PROCEDURE: CT angiography of the chest with contrast. TECHNIQUE: Multiple contiguous axial images were obtained through the chest after uneventful bolus administration of intravenous contrast. Reconstructed CTA MIP acquisitions were also performed. INDICATION: Dyspnea. COMPARISON: Comparison is made with prior CT from 06/22/2016. FINDINGS: Evaluation of pulmonary arterial system is without evidence of thromboembolism. No filling defects are identified within the central, lobar or segmental branches. The thoracic aorta is normal caliber. No dissection is identified. No pericardial or pleural fluid is identified. No axillary, hilar or mediastinal lymphadenopathy is detected. Biapical pleural parenchymal changes appear similar to prior CT. No pulmonary mass or infiltrate is seen. There is some scarring or atelectasis in the right lower lobe and right middle lobe as well. The upper abdomen is unremarkable. IMPRESSION: 1. No evidence of pulmonary embolism or thoracic aortic dissection. 2. No acute feature in the chest is identified. Dictated by: Dictated on workstation # [id number]
== END ==
LOC: RAD 11:47
PROVIDERS: ATTEND Internal Medicine
DX: R06.00 Dyspnea, unspecified (principal)
CPT/HCPCS: 71275

== ENCOUNTER → 2018-03-08 | Outpatient (CLI) | payer MEDICARE ==
[~2018-03-08] MED LIST changes: +BARIUM SUSPENSION 2.1% (VANILLA SILQ) 450 ML PO ONE; +IOHEXOL 350 MG/ML 100 ML (OMNIPAQUE 350) VIAL IV ONE; -IOHEXOL 350 MG/ML 150 ML (OMNIPAQUE 350) VIAL IV ONE
[2018-03-08 12:01] LABS: CREATININE SERUM 1.02 MG/DL (0.60-1.30)
--- NOTE | 2018-03-08 12:50 | Diagnostic Imaging Report ---
PROCEDURE: CT abdomen and pelvis with contrast. TECHNIQUE: Multiple contiguous axial images were obtained through the abdomen and pelvis after administration of intravenous contrast. INDICATION: Frequent urination and indigestion. FINDINGS: Heart size is normal. The lung bases are clear. The liver is normal in size without focal lesions. The gallbladder is unremarkable. There is no biliary ductal dilatation. The spleen is normal. Pancreas and adrenal glands are unremarkable. There is a tiny cyst in the right kidney. There is a cyst in the left kidney. The aorta is nonaneurysmal. Bowel gas pattern is nonspecific. There is no free air. There is no ascites. There are no focal inflammatory changes. There is a small hiatal hernia. Bladder is unremarkable. There is a 2.7 cm right adnexal cyst. There are calcified fibroids in the uterus. There are degenerative changes in the spine. There is a moderate amount of retained fecal material which may reflect some degree of constipation. IMPRESSION: 1. Small hiatal hernia. 2. Small bilateral renal cysts. 3. Moderate amount of retained fecal material, likely reflective of some degree of constipation. 4. 2.7 cm right adnexal cyst. 5. Multiple calcified fibroids in the uterus. 6. No other acute abnormality in the abdomen or pelvis. Dictated by: Dictated on workstation # [id number]
== END ==
LOC: RAD 11:15
PROVIDERS: ATTEND Urology
DX: N20.0 Calculus of kidney (principal); D49.4 Neoplasm of unspecified behavior of bladder; D25.9 Leiomyoma of uterus, unspecified; N85.8 Other specified noninflammatory disorders of uterus; K44.9 Diaphragmatic hernia without obstruction or gangrene
CPT/HCPCS: 36415; 74177; 82565; 84520

== ENCOUNTER 2018-05-14 10:47 | Outpatient (CLI) | payer MEDICARE ==
[~2018-05-14] VITALS: Ht 160 cm; Wt 68.3 kg
[2018-05-14 11:00] VITALS: BP 155/67
[2018-05-14] MEDS ORDERED: NS IV 1000 ML 1,000 ML ONE (11:01)
[2018-05-14] MEDS ORDERED: NS IV 1000 ML 1,000 ML IV ONE (11:15)
== END 2018-05-14 13:20 | disposition home or self-care (01) ==
LOC: SDC 10:47
PROVIDERS: ATTEND Physician Assistant
DX: E87.1 Hypo-osmolality and hyponatremia (principal)
CPT/HCPCS: 96360; 96367

== ENCOUNTER → 2018-05-14 | Outpatient (CLI) | payer MEDICARE ==
[~2018-05-14] MED LIST changes: -BARIUM SUSPENSION 2.1% (VANILLA SILQ) 450 ML PO ONE; -IOHEXOL 350 MG/ML 100 ML (OMNIPAQUE 350) VIAL IV ONE; -NS 250 ML (IVPB) BAG IV ONE
[2018-05-14] MEDS: NS 250 ML (IVPB) BAG IV ONE (09:00)
[2018-05-14] MEDS: IOHEXOL 350 MG/ML 100 ML (OMNIPAQUE 350) VIAL IV ONE (09:00)
--- NOTE | 2018-05-14 09:51 | Diagnostic Imaging Report ---
INDICATION: Dizziness. TECHNIQUE: Routine pre-and postcontrast-enhanced axial images were obtained from the skull base to the vertex. Contrast was administered intravenously. COMPARISON: 06/22/2016 FINDINGS: The ventricles and cortical sulci are diffusely prominent, compatible with age-related volume loss. There are confluent areas of abnormal, low attenuation in the periventricular white matter. This is consistent with chronic small vessel ischemic changes. Postcontrast images show no abnormal areas of enhancement. There is no midline shift or mass-effect. No acute intra-axial hemorrhage is seen. There are no abnormal areas of increased or decreased density to suggest acute hemorrhage or edema. No extra-axial masses or collections are present. The bony calvarium is intact. The visualized paranasal sinuses are unremarkable. The mastoid air cells are clear. IMPRESSION: 1. No acute intracranial abnormality. No CT evidence of mass, acute infarct or intracranial hemorrhage. 2. Chronic small vessel ischemic changes in the deep white matter. Dictated by: Dictated on workstation # [id number]
== END ==
LOC: RAD 08:27
PROVIDERS: ATTEND Physician Assistant
DX: R90.82 White matter disease, unspecified (principal); R42 Dizziness and giddiness; R53.83 Other fatigue; G47.9 Sleep disorder, unspecified
CPT/HCPCS: 70470

== ENCOUNTER → 2018-05-17 | Outpatient (CLI) | payer MEDICARE ==
--- NOTE | 2018-05-17 12:30 | Diagnostic Imaging Report ---
TECHNIQUE: 2D and 3D bilateral screening mammography was performed with CAD. 3D tomosynthesis was also performed and reviewed. INDICATION: Routine screening. COMPARISON: 05/15/2017 and 03/14/2016. FINDINGS: Both breasts are heterogeneously dense, limiting the sensitivity of mammography. The parenchymal pattern is stable. No mass or malignant-appearing microcalcifications are seen. There are benign parenchymal and vascular calcifications bilaterally. The axillae are unremarkable. IMPRESSION: No mammographic features suspicious for malignancy are identified. ACR BI-RADS Category 2: Benign findings. Result letter will be mailed to the patient. Note: At least 10% of breast cancer is not imaged by mammography. Dictated by: Dictated on workstation # [id number]
== END ==
LOC: RAD 10:06
PROVIDERS: ATTEND Internal Medicine
DX: Z12.31 Encounter for screening mammogram for malignant neoplasm of breast (principal)
CPT/HCPCS: 77067

== ENCOUNTER 2018-06-02 06:20 | Outpatient (CLI) | payer MEDICARE ==
[~2018-06-02] VITALS: Ht 160 cm; Wt 68.0 kg
[2018-06-02] MEDS ORDERED: HYDR200T46 PO (13:22)
[2018-06-02] MEDS ORDERED: ATOR10TA66 PO (13:22)
[2018-06-02] MEDS ORDERED: RIVA20TA PO (13:22)
[2018-06-02] MEDS ORDERED: CALC600T80 PO (13:22)
[2018-06-02] MEDS ORDERED: ONDA4TAB8 SL (13:22)
[2018-06-02] MEDS ORDERED: FOLI1TAB24 PO (13:22)
[2018-06-02] MEDS ORDERED: METH2.5T PO (13:22)
[2018-06-02] MEDS ORDERED: CARV12.53 PO (13:22)
[2018-06-02] MEDS ORDERED: AMLO10TA6 PO (13:22)
[2018-06-02] MEDS ORDERED: LISI40TA PO (13:22)
[2018-06-02] MEDS ORDERED: DESM0.2T2 PO (13:22)
== END 2018-06-02 13:30 | disposition home or self-care (01) ==
LOC: PREOP 06:20
PROVIDERS: ATTEND Urology
DX: Z01.818 Encounter for other preprocedural examination (principal)

== ENCOUNTER 2018-06-02 10:15 | Outpatient (CLI) | payer MEDICARE ==
[~2018-06-02] VITALS: Ht 160 cm; Wt 68.3 kg
[2018-06-02] MEDS ORDERED: NS IV 1000 ML 1,000 ML ONE (10:26)
[2018-06-02] MEDS ORDERED: NS IV 1000 ML 1,000 ML IV ONE (10:45)
[2018-06-02 11:45] VITALS: BP 161/68
[2018-06-02] MEDS ORDERED: LISI40TA PO (13:22)
[2018-06-02] MEDS ORDERED: CARV12.53 PO (13:22)
[2018-06-02] MEDS ORDERED: CALC600T80 PO (13:22)
[2018-06-02] MEDS ORDERED: RIVA20TA PO (13:22)
[2018-06-02] MEDS ORDERED: ONDA4TAB8 SL (13:22)
[2018-06-02] MEDS ORDERED: ATOR10TA66 PO (13:22)
[2018-06-02] MEDS ORDERED: METH2.5T PO (13:22)
[2018-06-02] MEDS ORDERED: HYDR200T46 PO (13:22)
[2018-06-02] MEDS ORDERED: DESM0.2T2 PO (13:22)
[2018-06-02] MEDS ORDERED: FOLI1TAB24 PO (13:22)
[2018-06-02] MEDS ORDERED: AMLO10TA6 PO (13:22)
== END 2018-06-02 11:45 | disposition home or self-care (01) ==
LOC: SDC 10:15
PROVIDERS: ATTEND Physician Assistant
DX: E87.1 Hypo-osmolality and hyponatremia (principal)
CPT/HCPCS: 96360

== ENCOUNTER 2018-06-07 05:52 | Day surgery (SDC) | payer MEDICARE ==
[~2018-06-07] VITALS: Ht 160 cm; Wt 66.0 kg
[~2018-06-07 05:52] MED LIST changes: +AMLO10TA6 PO; +ATOR10TA66 PO; +CALC600T80 PO; +DESM0.2T2 PO; +FOLI1TAB24 PO; +HYDR200T46 PO; +LISI40TA PO; +METH2.5T PO; +ONDA4TAB8 SL; +RIVA20TA PO
--- OUTSIDE RECORDS SUMMARY | 2018-06-07 05:58 | XMS REPORT | Continuity of Care Document ---
Author Author [facility] Organization [facility] Address Unknown Phone Unavailable Allergies Active Description Code Type Severity Reaction Onset Reported/Identified Relationship to Patient Clinical Status Yes NKANo Known Allergies NKA Miscellaneous Allergy Unknown N/A 06/08/2006 Yes No Known Drug Allergies [id number] Drug Allergy Unknown N/A 10/17/2016 Medications There is no data. Problems Date Dx Coded Attending Type Code Diagnosis Diagnosed By 07/16/1214 BRADFORD MCKEON APRN Ot R26.9 UNSPECIFIED ABNORMALITIES OF GAIT AND MO 07/16/1214 BRADFORD MCKEON APRN Ot R53.81 OTHER MALAISE 12/06/2012 Ot 735.0 HALLUX VALGUS 12/06/2012 Ot [...] EXAM PRE- OPERATIVE NOS 07/04/2016 BRADFORD MCKEON [employer] Ot V76.12 OTH SCREEN MAMMO-MALIGN NEOPLASM OF [...] 07/11/2016 CARMELLA MONTILLA DO Ot Z79.899 OTHER DEBURRER MACHINE (CURRENT) DRUG THERAPY 07/14/2016 ROLDAN MAGANA CARMELLA Tapan Ot I10 ESSENTIAL (PRIMARY) HYPERTENSION 07/14/2016 CARMELLA MONTILLA DO [place] Ot M79.2 NEURALGIA AND NEURITIS, UNSPECIFIED 07/14/2016 CARMELLA MONTILLA DO [place] Ot M79.642 PAIN IN LEFT HAND 07/14/2016 CARMELLA MONTILLA DO Ot Z79.899 OTHER RETIREMENT (CURRENT) DRUG THERAPY 07/24/2016 Dodie RIVERA MD [...] SKIN 08/27/2016 ARTUR DENG MD Ot R29.898 OTH SYMPTOMS AND SIGNS INVOLVING THE MUS 09/22/2016 Dodie RIVERA MD Ot I48.91 UNSPECIFIED ATRIAL FIBRILLATION 09/23/2016 Dodie RIVERA MD Ot I48.91 UNSPECIFIED ATRIAL FIBRILLATION 09/28/2016 Dodie RIVERA MD Ot I48.91 UNSPECIFIED ATRIAL FIBRILLATION 10/17/2016 Dodie RIVERA MD Ot I48.91 UNSPECIFIED ATRIAL FIBRILLATION 10/17/2016 JESSICA LOCKWOOD MD Ot D64.9 ANEMIA, UNSPECIFIED 10/17/2016 JESSICA LOCKWOOD MD Ot K92.2 GASTROINTESTINAL HEMORRHAGE, UNSPECIFIED 10/17/2016 JESSICA LOCKWOOD MD Ot Z01.818 ENCOUNTER FOR OTHER PREPROCEDURAL EXAMIN 10/20/2016 JESSICA LOCKWOOD MD Ot D64.9 ANEMIA, UNSPECIFIED 10/20/2016 JESSICA LOCKWOOD MD Ot K92.2 GASTROINTESTINAL HEMORRHAGE, UNSPECIFIED 10/20/2016 JESSICA LOCKWOOD MD Ot Z01.818 ENCOUNTER FOR OTHER PREPROCEDURAL EXAMIN 10/21/2016 JESSICA LOCKWOOD MD Ot D64.9 ANEMIA, UNSPECIFIED 10/21/2016 JESSICA LOCKWOOD MD Ot K29.71 GASTRITIS, UNSPECIFIED, WITH BLEEDING 10/21/2016 JESSICA LOCKWOOD MD Ot K44.9 DIAPHRAGMATIC HERNIA WITHOUT OBSTRUCTION 10/21/2016 JESSICA LOCKWOOD MD Ot Z79.01 RETIREMENT (CURRENT) USE OF ANTICOAGULANT 10/27/2016 JESSICA LOCKWOOD MD Ot D64.9 ANEMIA, UNSPECIFIED 10/27/2016 JESSICA LOCKWOOD MD Ot K29.71 GASTRITIS, UNSPECIFIED, WITH BLEEDING 10/27/2016 JESSICA LOCKWOOD MD Ot K44.9 DIAPHRAGMATIC HERNIA WITHOUT OBSTRUCTION 10/27/2016 JESSICA LOCKWOOD MD Ot Z79.01 DEBURRER MACHINE (CURRENT) USE OF ANTICOAGULANT 10/31/2016 JESSICA LOCKWOOD MD, Ot D64.9 ANEMIA, UNSPECIFIED 10/31/2016 JESSICA LOCKWOOD MD Ot K57.30 DVRTCLOS OF LG INT W/O PERFORATION OR AB 10/31/2016 JESSICA LOCKWOOD MD Ot R19.5 OTHER FECAL ABNORMALITIES 11/03/2016 ARTUR DENG MD Ot M12.9 ARTHROPATHY, UNSPECIFIED 11/24/2016 ARTUR DENG MD Ot M12.9 ARTHROPATHY, UNSPECIFIED 12/10/2016 ARTUR DENG MD Ot M06.9 RHEUMATOID ARTHRITIS, UNSPECIFIED 12/31/2016 ARTUR DENG MD Ot M06.9 RHEUMATOID ARTHRITIS, UNSPECIFIED 01/13/2017 ARTUR DENG MD Ot M06.9 RHEUMATOID ARTHRITIS, UNSPECIFIED 02/05/2017 GARLAND [...] RIGHT ANKLE AND JOINTS OF RIGHT 02/11/2017 GARALND HOOVER MD Ot 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 02/11/2017 GARLAND HOOVER MD Ot Z98.890 OTHER SPECIFIED POSTPROCEDURAL STATES 04/11/2017 CORRINE SALGADO MD Ot M19.041 PRIMARY OSTEOARTHRITIS, RIGHT HAND 04/11/2017 CORRINE SALGADO MD Ot M19.071 PRIMARY OSTEOARTHRITIS, RIGHT ANKLE AND 04/11/2017 CORRINE SALGADO MD Ot M19.072 PRIMARY OSTEOARTHRITIS, LEFT ANKLE AND F 04/11/2017 CORRINE SALGADO MD Ot M85.871 OT DISRD OF BONE DENSITY AND STRUCTURE, 04/11/2017 CORRINE SALGADO MD Ot Z79.899 OTHER DEBURRER MACHINE (CURRENT) DRUG THERAPY 04/21/2017 CORRINE SALGADO MD Ot M19.041 PRIMARY OSTEOARTHRITIS, RIGHT HAND 04/21/2017 CORRINE SALGADO MD Ot M19.071 PRIMARY OSTEOARTHRITIS, RIGHT ANKLE AND 04/21/2017 CORRINE SALGADO MD Ot M19.072 PRIMARY OSTEOARTHRITIS, LEFT ANKLE AND F 04/21/2017 CORRINE SALGADO MD Ot M85.871 OT DISRD OF BONE DENSITY AND STRUCTURE, 04/21/2017 CORRINE SALGADO MD Ot Z79.899 OTHER RETIREMENT (CURRENT) DRUG THERAPY 04/28/2017 ARTUR DENG MD Ot R53.83 OTHER FATIGUE 05/12/2017 CORRINE SALGADO MD Ot Z79.899 OTHER RETIREMENT (CURRENT) DRUG THERAPY 05/13/2017 CORRINE SALGADO MD Ot Z79.899 OTHER RETIREMENT (CURRENT) DRUG THERAPY 06/02/2017 CORRINE SALGADO MD Ot Z79.899 OTHER RETIREMENT (CURRENT) DRUG THERAPY 06/05/2017 ARTUR DENG MD Ot Z12.31 ENCNTR SCREEN MAMMOGRAM FOR MALIGNANT NE 08/05/2017 BRADFORD MCKEON [employer] Ot J18.9 PNEUMONIA, UNSPECIFIED ORGANISM 08/13/2017 BRADFORD MCKEON [employer] Ot J18.9 PNEUMONIA, UNSPECIFIED ORGANISM 09/16/2017 BRADFORD MCKEON [employer] Ot R26.9 UNSPECIFIED ABNORMALITIES OF GAIT AND MO 09/16/2017 BRADFORD MCKEON [employer] Ot R53.81 OTHER MALAISE 10/07/2017 LISSET DO HALI K Ot E78.00 PURE HYPERCHOLESTEROLEMIA, UNSPECIFIED 10/07/2017 [place]IS[place] DO HALI K Ot E83.42 HYPOMAGNESEMIA 10/07/2017 LISSET DO HALI K Ot E87.1 HYPO-OSMOLALITY AND HYPONATREMIA 10/07/2017 [place] DO HALI K Ot I10 ESSENTIAL (PRIMARY) HYPERTENSION 10/07/2017 [place] DO, HALI K Ot I48.0 PAROXYSMAL ATRIAL FIBRILLATION 10/07/2017 [place]IS[place] DO, HALI K Ot 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 10/07/2017 [place] DO, HALI K Ot R03.0 ELEVATED BLOOD-PRESSURE READING, W/O DANILO 10/07/2017 [place] DO, HALI K Ot Z79.52 RETIREMENT (CURRENT) USE OF SYSTEMIC STER 10/09/2017 [place] DO, HALI K Ot E78.00 PURE HYPERCHOLESTEROLEMIA, UNSPECIFIED 10/09/2017 [place] DO, HALI K Ot E83.42 HYPOMAGNESEMIA 10/09/2017 [place]IS[place] DO, HALI K Ot E87.1 HYPO-OSMOLALITY AND HYPONATREMIA 10/09/2017 [place] DO, HALI K Ot I10 ESSENTIAL (PRIMARY) HYPERTENSION 10/09/2017 [place] DO, HALI K Ot I48.0 PAROXYSMAL ATRIAL FIBRILLATION 10/09/2017 [place] DO, HALI K Ot 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 10/09/2017 [place] DO, HALI K Ot R03.0 ELEVATED BLOOD-PRESSURE READING, W/O DANILO 10/09/2017 [place] DO, HALI K Ot Z79.52 DEBURRER MACHINE (CURRENT) USE OF SYSTEMIC STER 11/23/2017 LAINEY SOLANO [employer] Ot 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, THORACIC REGIO 11/23/2017 LAINEY SOLANO [employer] Ot 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, LUMBAR REGION 11/23/2017 LAINEY SOLANO [employer] Ot M46.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 SPECIFIED INFLAMMATORY SPONDYLOPAT 11/23/2017 LAINEY SOLANO [employer] Ot M51.36 OTHER INTERVERTEBRAL DISC DEGENERATION, 11/23/2017 LAINEY SOLANO [employer] Ot 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, THORACIC REGIO 11/23/2017 LAINEY SOLANO [employer] Ot 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, LUMBAR REGION 11/23/2017 LAINEY SOLANO [employer] Ot M46.86 OTHER SPECIFIED INFLAMMATORY SPONDYLOPAT 11/23/2017 LAINEY SOLANO [employer] Ot M51.36 OTHER INTERVERTEBRAL DISC DEGENERATION, 11/26/2017 Ot 401.9 HYPERTENSION NOS 11/26/2017 Ot 786.50 CHEST PAIN NOS 11/26/2017 Ot 735.0 HALLUX VALGUS 11/26/2017 Ot 735.2 HALLUX RIGIDUS 11/26/2017 Ot V72.84 EXAM PRE- OPERATIVE NOS 11/26/2017 BRADFORD MCKEON [employer] Ot V76.12 OTH SCREEN MAMMO-MALIGN NEOPLASM OF MICHEAL 11/26/2017 ARTUR DENG MD Ot 721.0 CERVICAL SPONDYLOSIS 11/26/2017 ARTUR DENG MD Ot V76.12 OTH SCREEN MAMMO-MALIGN NEOPLASM OF MICHEAL 11/26/2017 ARTUR DENG MD Ot V76.12 OTH SCREEN MAMMO-MALIGN NEOPLASM OF MICHEAL 11/26/2017 BRADFORD MCKEON APRN Ot Z12.31 ENCNTR SCREEN MAMMOGRAM FOR MALIGNANT NE 11/26/2017 ARTUR DENG MD Ot 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 11/26/2017 ARTUR DENG MD Ot R09.89 OTH SYMPTOMS AND SIGNS INVOLVING THE CIR 11/26/2017 ARTUR DENG MD Ot R20.2 PARESTHESIA OF SKIN 11/26/2017 ARTUR DENG MD Ot R29.898 OTH SYMPTOMS AND SIGNS INVOLVING THE MUS 11/26/2017 NICOLE ZARAGOZA, M RICK Ot I48.91 UNSPECIFIED ATRIAL FIBRILLATION 11/26/2017 JESSICA LOCKWOOD MD Ot D64.9 ANEMIA, UNSPECIFIED 11/26/2017 JESSICA LOCKWOOD MD Ot R19.5 OTHER FECAL ABNORMALITIES 11/26/2017 JESSICA LOCKWOOD MD Ot Z01.818 ENCOUNTER FOR OTHER PREPROCEDURAL EXAMIN 11/26/2017 ARTUR DENG MD Ot M12.9 ARTHROPATHY, UNSPECIFIED 11/26/2017 ARTUR DENG MD Ot M06.9 RHEUMATOID ARTHRITIS, UNSPECIFIED 11/26/2017 CORRINE SALGADO MD Ot M19.041 PRIMARY OSTEOARTHRITIS, RIGHT HAND 11/26/2017 CORRINE SALGADO MD Ot M19.071 PRIMARY OSTEOARTHRITIS, RIGHT ANKLE AND 11/26/2017 CORRINE SALGADO MD Ot M19.072 PRIMARY OSTEOARTHRITIS, LEFT ANKLE AND F 11/26/2017 CORRINE SALGADO MD Ot M85.871 OTH DISRD OF BONE DENSITY AND STRUCTURE, 11/26/2017 CORRINE SALGADO MD Ot Z79.899 OTHER RETIREMENT (CURRENT) DRUG THERAPY 11/26/2017 ARTUR DENG MD Ot R53.83 OTHER FATIGUE 11/26/2017 CORRINE SALGADO MD Ot Z79.899 OTHER DEBURRER MACHINE (CURRENT) DRUG THERAPY 11/26/2017 ARTUR DENG MD Ot Z12.31 ENCNTR SCREEN MAMMOGRAM FOR MALIGNANT NE 11/26/2017 BRADFORD MCKEON [employer] Ot J18.9 PNEUMONIA, UNSPECIFIED ORGANISM 11/26/2017 LAINEY SOLANO [employer] Ot 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, THORACIC REGIO 11/26/2017 LAINEY SOLANO [employer] Ot 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, LUMBAR REGION 11/26/2017 LAINEY SOLANO [employer] Ot M46.86 OTHER SPECIFIED INFLAMMATORY SPONDYLOPAT 11/26/2017 LAINEY SOLANO [employer] Ot M51.36 OTHER INTERVERTEBRAL DISC DEGENERATION, 12/01/2017 ARTUR DENG MD Ot I10 ESSENTIAL (PRIMARY) HYPERTENSION 12/01/2017 ARTUR DENG MD Ot R06.00 DYSPNEA, UNSPECIFIED 12/07/2017 Ot 401.9 HYPERTENSION NOS 12/07/2017 Ot 786.50 CHEST PAIN NOS 12/07/2017 Ot 735.0 HALLUX VALGUS 12/07/2017 Ot 735.2 HALLUX RIGIDUS 12/07/2017 Ot V72.84 EXAM PRE- OPERATIVE NOS 12/07/2017 BRADFORD MCKEON APRN Ot V76.12 OTH SCREEN MAMMO-MALIGN NEOPLASM OF MICHEAL 12/07/2017 ARTUR DENG MD Ot 721.0 CERVICAL SPONDYLOSIS 12/07/2017 ARTUR DENG MD Ot V76.12 OTH SCREEN MAMMO-MALIGN NEOPLASM OF MICHEAL 12/07/2017 ARTUR DENG MD Ot V76.12 OTH SCREEN MAMMO-MALIGN NEOPLASM OF MICHEAL 12/07/2017 BRADFORD MCKEON [employer] Ot Z12.31 ENCNTR SCREEN MAMMOGRAM FOR MALIGNANT NE 12/07/2017 ARTUR DENG MD Ot 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 12/07/2017 ARTUR DENG MD Ot R09.89 OTH SYMPTOMS AND SIGNS INVOLVING THE CIR 12/07/2017 ARTUR DENG MD Ot R20.2 PARESTHESIA OF SKIN 12/07/2017 ARTUR DENG MD Ot R29.898 OTH SYMPTOMS AND SIGNS INVOLVING THE MUS 12/07/2017 NICOLE ZARAGOZA, Dodie CABRERA Ot I48.91 UNSPECIFIED ATRIAL FIBRILLATION 12/07/2017 MANDIE ZARAGOZA, JESSICA Phelan Ot D64.9 ANEMIA, UNSPECIFIED 12/07/2017 JESSICA LOCKWOOD MD Ot R19.5 OTHER FECAL ABNORMALITIES 12/07/2017 JESSICA LOCKWOOD MD Ot Z01.818 ENCOUNTER FOR OTHER PREPROCEDURAL EXAMIN 12/07/2017 ARTUR DENG MD Ot M12.9 ARTHROPATHY, UNSPECIFIED 12/07/2017 ARTUR DENG MD Ot M06.9 RHEUMATOID ARTHRITIS, UNSPECIFIED 12/07/2017 CORRINE SALGADO MD Ot M19.041 PRIMARY OSTEOARTHRITIS, RIGHT HAND 12/07/2017 CORRINE SALGADO MD Ot M19.071 PRIMARY OSTEOARTHRITIS, RIGHT ANKLE AND 12/07/2017 CORRINE SALGADO MD Ot M19.072 PRIMARY OSTEOARTHRITIS, LEFT ANKLE AND F 12/07/2017 CORRINE SALGADO MD Ot M85.871 [facility] DISRD OF BONE DENSITY AND STRUCTURE, 12/07/2017 CORRINE SALGADO MD Ot Z79.899 OTHER DEBURRER MACHINE (CURRENT) DRUG THERAPY 12/07/2017 ARTUR DENG MD Ot R53.83 OTHER FATIGUE 12/07/2017 CORRINE SALGADO MD Ot Z79.899 OTHER RETIREMENT (CURRENT) DRUG THERAPY 12/07/2017 ARTUR DENG MD Ot Z12.31 ENCNTR SCREEN MAMMOGRAM FOR MALIGNANT NE 12/07/2017 BRADFORD MCKEON APRN Ot J18.9 PNEUMONIA, UNSPECIFIED ORGANISM 12/07/2017 LAINEY SOLANO APRN Ot 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, THORACIC REGIO 12/07/2017 LAINEY SOLANO APRN Ot 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, LUMBAR REGION 12/07/2017 LAINEY SOLANO APRN Ot M46.86 OTHER SPECIFIED INFLAMMATORY SPONDYLOPAT 12/07/2017 LAINEY SOLANO APRN Ot M51.36 OTHER INTERVERTEBRAL DISC DEGENERATION, 12/07/2017 ARTUR DENG MD Ot I10 ESSENTIAL (PRIMARY) HYPERTENSION 12/07/2017 ARTUR EDNG MD Ot R06.00 DYSPNEA, UNSPECIFIED 12/08/2017 ARTUR DENG MD Ot R06.00 DYSPNEA, UNSPECIFIED 12/14/2017 LAINEY SOLANO [employer] Ot 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, THORACIC REGIO 12/14/2017 LAINEY SOLANO [employer] Ot 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, LUMBAR REGION 12/14/2017 LAINEY SOLANO [employer] Ot M46.86 OTHER SPECIFIED INFLAMMATORY SPONDYLOPAT 12/14/2017 LAINEY SOLANO [employer] Ot M51.36 OTHER INTERVERTEBRAL DISC DEGENERATION, 12/16/2017 LAINEY SOLANO [employer] Ot 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, THORACIC REGIO 12/16/2017 LAINEY SOLANO [employer] Ot 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, LUMBAR REGION 12/16/2017 LAINEY SOLANO [employer] Ot M46.86 OTHER SPECIFIED INFLAMMATORY SPONDYLOPAT 12/16/2017 LAINEY SOLANO [employer] Ot M51.36 OTHER INTERVERTEBRAL DISC DEGENERATION, 12/29/2017 ISH ZARAGOZA, ARTUR Phelan Ot R06.00 DYSPNEA, UNSPECIFIED 01/07/2018 Dodie RIVERA MD Ot E78.5 HYPERLIPIDEMIA, UNSPECIFIED 01/07/2018 Dodie RIVERA MD Ot I10 ESSENTIAL (PRIMARY) HYPERTENSION 01/07/2018 Dodie RIVERA MD Ot I48.91 UNSPECIFIED ATRIAL FIBRILLATION 01/07/2018 Dodie RIVERA MD Ot I49.3 VENTRICULAR PREMATURE DEPOLARIZATION 01/07/2018 Dodie RIVERA MD Ot R06.02 SHORTNESS OF BREATH 01/07/2018 Dodie RIVERA MD Ot R53.83 OTHER FATIGUE 01/07/2018 ARTUR DENG MD Ot R06.00 DYSPNEA, UNSPECIFIED 01/12/2018 Dodie RIVERA MD Ot E78.5 HYPERLIPIDEMIA, UNSPECIFIED 01/12/2018 Dodie RIVEAR MD Ot I10 ESSENTIAL (PRIMARY) HYPERTENSION 01/12/2018 Dodie RIVERA MD Ot I48.91 UNSPECIFIED ATRIAL FIBRILLATION 01/12/2018 Dodie RIVERA MD Ot I49.3 VENTRICULAR PREMATURE DEPOLARIZATION 01/12/2018 Dodie RIVERA MD Ot R06.02 SHORTNESS OF BREATH 01/12/2018 KHALID MD, M RICK Ot R53.83 OTHER FATIGUE 01/26/2018 ARTUR DENG MD Ot R06.00 DYSPNEA, UNSPECIFIED 01/27/2018 NICOLE ZARAGOZA, M RICK Ot E78.5 HYPERLIPIDEMIA, UNSPECIFIED 01/27/2018 NICOLE ZARAGOZA, M RICK Ot I10 ESSENTIAL (PRIMARY) HYPERTENSION 01/27/2018 NICOLE ZARAGOZA, M RICK Ot I48.91 UNSPECIFIED ATRIAL FIBRILLATION 01/27/2018 NICOLE ZARAGOZA, M RICK Ot I49.3 VENTRICULAR PREMATURE DEPOLARIZATION 01/27/2018 NICOLE ZARAGOZA, M RICK Ot R06.02 SHORTNESS OF BREATH 01/27/2018 NICOLE ZARAGOZA, M RICK Ot R53.83 OTHER FATIGUE 01/27/2018 ARTUR DENG MD Ot I10 ESSENTIAL (PRIMARY) HYPERTENSION 01/27/2018 ARTUR DENG MD Ot R06.00 DYSPNEA, UNSPECIFIED 02/03/2018 NICOLE ZARAGOZA, M RICK Ot E78.5 HYPERLIPIDEMIA, UNSPECIFIED 02/03/2018 NICOLE ZARAGOZA, M RICK Ot I10 ESSENTIAL (PRIMARY) HYPERTENSION 02/03/2018 NICOLE ZARAGOZA, M RICK Ot I48.91 UNSPECIFIED ATRIAL FIBRILLATION 02/03/2018 NICOLE ZARAGOZA, M RICK Ot I49.3 VENTRICULAR PREMATURE DEPOLARIZATION 02/03/2018 NICOLE ZARAGOZA, M RICK Ot R06.02 SHORTNESS OF BREATH 02/03/2018 NICOLE ZARAGOZA, M RICK Ot R53.83 OTHER FATIGUE 02/16/2018 ARTUR DENG MD Ot I10 ESSENTIAL (PRIMARY) HYPERTENSION 02/16/2018 ARTUR DENG MD Ot R06.00 DYSPNEA, UNSPECIFIED 02/18/2018 ARTUR DENG MD Ot R06.00 DYSPNEA, UNSPECIFIED 02/18/2018 ARTUR DENG MD Ot I10 ESSENTIAL (PRIMARY) HYPERTENSION 02/18/2018 ARTUR DENG MD Ot R06.00 DYSPNEA, UNSPECIFIED 02/25/2018 ARTUR DENG MD Ot R06.00 DYSPNEA, UNSPECIFIED 03/08/2018 ISIDRO ZARAGOZA, TIBURCIO Werner Ot D25.9 LEIOMYOMA OF UTERUS, UNSPECIFIED 03/08/2018 TIBURCIO FELIX MD Ot 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 03/08/2018 TIBURCIO FELIX MD Ot K44.9 DIAPHRAGMATIC HERNIA WITHOUT OBSTRUCTION 03/08/2018 ISIDRO ZARAGOZA, TIBURCIO Werner Ot N20.0 CALCULUS OF KIDNEY 03/08/2018 ISIDRO ZARAGOZA, TIBURCIO Werner Ot N85.8 OTHER SPECIFIED NONINFLAMMATORY DISORDER 04/09/2018 ARTUR DENG MD Ot D64.9 ANEMIA, UNSPECIFIED 05/06/2018 ARTUR DENG MD Ot D64.9 ANEMIA, UNSPECIFIED 05/14/2018 Ot 735.0 HALLUX VALGUS 05/14/2018 Ot 735.2 HALLUX RIGIDUS 05/14/2018 Ot V72.84 EXAM PRE- OPERATIVE NOS 05/14/2018 BRADFORD MCKEON [employer] Ot V76.12 OTH SCREEN MAMMO-MALIGN NEOPLASM OF MICHEAL 05/14/2018 ARTUR DENG MD Ot 721.0 CERVICAL SPONDYLOSIS 05/14/2018 ARTUR DENG MD Ot V76.12 OTH SCREEN MAMMO-MALIGN NEOPLASM OF MICHEAL 05/14/2018 ARTUR DENG MD Ot V76.12 OTH SCREEN MAMMO-MALIGN NEOPLASM OF MICHEAL 05/14/2018 BRADFORD MCKEON [employer] Ot Z12.31 ENCNTR SCREEN MAMMOGRAM FOR MALIGNANT NE 05/14/2018 ARTUR DENG MD Ot 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 05/14/2018 ARTUR DENG MD Ot R09.89 OTH SYMPTOMS AND SIGNS INVOLVING THE CIR 05/14/2018 ARTUR DENG MD Ot R20.2 PARESTHESIA OF SKIN 05/14/2018 ARTUR DENG MD Ot R29.898 OTH SYMPTOMS AND SIGNS INVOLVING THE MUS 05/14/2018 NICOLE ZARAGOZA, Dodie CABRERA Ot I48.91 UNSPECIFIED ATRIAL FIBRILLATION 05/14/2018 JESSICA LOCKWOOD MD Ot D64.9 ANEMIA, UNSPECIFIED 05/14/2018 JESSICA LOCKWOOD MD Ot R19.5 OTHER FECAL ABNORMALITIES 05/14/2018 JESSICA LOCKWOOD MD Ot Z01.818 ENCOUNTER FOR OTHER PREPROCEDURAL EXAMIN 05/14/2018 ARTUR DENG MD Ot M12.9 ARTHROPATHY, UNSPECIFIED 05/14/2018 ARTUR DENG MD Ot M06.9 RHEUMATOID ARTHRITIS, UNSPECIFIED 05/14/2018 CORRINE SALGADO MD, Ot M19.041 PRIMARY OSTEOARTHRITIS, RIGHT HAND 05/14/2018 CORRINE SALGADO MD Ot M19.071 PRIMARY OSTEOARTHRITIS, RIGHT ANKLE AND 05/14/2018 CORRINE SALGADO MD, Ot M19.072 PRIMARY OSTEOARTHRITIS, LEFT ANKLE AND F 05/14/2018 CORRINE SALGADO MD Ot M85.871 [facility] DISRD OF BONE DENSITY AND STRUCTURE, 05/14/2018 CORRINE SALGADO MD Ot Z79.899 OTHER DEBURRER MACHINE (CURRENT) DRUG THERAPY 05/14/2018 ARTUR DENG MD, Ot R53.83 OTHER FATIGUE 05/14/2018 CORRINE SALGADO MD, Ot Z79.899 OTHER DEBURRER MACHINE (CURRENT) DRUG THERAPY 05/14/2018 ARTUR DENG MD, Ot Z12.31 ENCNTR SCREEN MAMMOGRAM FOR MALIGNANT NE 05/14/2018 BRADFORD MCKEON [employer] Ot J18.9 PNEUMONIA, UNSPECIFIED ORGANISM 05/14/2018 LAINEY SOLANO APRN Ot 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, THORACIC REGIO 05/14/2018 LAINEY SOLANO [employer] Ot 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, LUMBAR REGION 05/14/2018 LAINEY SOLANO APRN Ot M46.86 OTHER SPECIFIED INFLAMMATORY SPONDYLOPAT 05/14/2018 LAINEY SOLANO APRN Ot M51.36 OTHER INTERVERTEBRAL DISC DEGENERATION, 05/14/2018 ARTUR DENG MD Ot R06.00 DYSPNEA, UNSPECIFIED 05/14/2018 ARTUR DENG MD Ot I10 ESSENTIAL (PRIMARY) HYPERTENSION 05/14/2018 ARTUR DENG MD Ot R06.00 DYSPNEA, UNSPECIFIED 05/14/2018 Dodie RIVERA MD Ot E78.5 HYPERLIPIDEMIA, UNSPECIFIED 05/14/2018 Dodie RIVERA MD Ot I10 ESSENTIAL (PRIMARY) HYPERTENSION 05/14/2018 Dodie RIVERA MD Ot I48.91 UNSPECIFIED ATRIAL FIBRILLATION 05/14/2018 Dodie RIVERA MD Ot I49.3 VENTRICULAR PREMATURE DEPOLARIZATION 05/14/2018 Dodie RIVERA MD Ot R06.02 SHORTNESS OF BREATH 05/14/2018 Dodie RIVERA MD Ot R53.83 OTHER FATIGUE 05/14/2018 ARTUR DENG MD Ot R06.00 DYSPNEA, UNSPECIFIED 05/14/2018 TIBURCIO FELIX MD, Ot D25.9 LEIOMYOMA OF UTERUS, UNSPECIFIED 05/14/2018 TIBURCIO FELIX MD Ot 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 05/14/2018 TIBURCIO FELIX MD Ot K44.9 DIAPHRAGMATIC HERNIA WITHOUT OBSTRUCTION 05/14/2018 TIBURCIO FELIX MD Ot N20.0 CALCULUS OF KIDNEY 05/14/2018 TIBURCIO FELIX MD Ot N85.8 OTHER SPECIFIED NONINFLAMMATORY DISORDER 05/14/2018 ARTUR DENG MD Ot D64.9 ANEMIA, UNSPECIFIED 05/14/2018 ARTUR DENG MD Ot Z12.31 ENCNTR SCREEN MAMMOGRAM FOR MALIGNANT NE 05/15/2018 KALIE CAICEDO Ot G47.9 SLEEP DISORDER, UNSPECIFIED 05/15/2018 KALIE CAICEDO Ot R42 DIZZINESS AND GIDDINESS 05/15/2018 KALIE CAICEDO Ot R53.83 OTHER FATIGUE 05/15/2018 KAILE CAICEDO Ot R90.82 WHITE MATTER DISEASE, UNSPECIFIED 05/18/2018 KALIE CAICEDO Ot E87.1 HYPO-OSMOLALITY AND HYPONATREMIA 05/19/2018 ARTUR DENG MD Ot Z12.31 ENCNTR SCREEN MAMMOGRAM FOR MALIGNANT NE 05/20/2018 KALIE CAICEDO Ot G47.9 SLEEP DISORDER, UNSPECIFIED 05/20/2018 KALIE CAICEDO Ot R42 DIZZINESS AND GIDDINESS 05/20/2018 KALIE CAICEDO Ot R53.83 OTHER FATIGUE 05/20/2018 KALIE CAICEDO Ot R90.82 WHITE MATTER DISEASE, UNSPECIFIED 06/02/2018 TIBURCIO FELIX MD Ot Z01.818 ENCOUNTER FOR OTHER PREPROCEDURAL EXAMIN Procedures There is no data. Results Test [...] or plasma rheumatoid factor measurement (units/volume) NEGATIVE [id number] - 03/20/17 09:14 Screening antinuclear antibody (ARUN) [...] rickettsii IgG antibody assay (units/volume) < <1:16 [place] spotted fever panel < <1:10 Francisella tularensis [...] gold in tube test <0.00 0.00- 0.34 Complete blood count (CBC) with automated white blood cell (WBC) differential - 10/07/17 18:01 Blood leukocytes automated count (number/volume) 8.8 10*3/uL 4.3-11.0 Blood erythrocytes automated count (number/volume) 3.82 10*6/uL 4.35-5.85 Venous blood hemoglobin measurement (mass/volume) 11.8 g/dL 11.5-16.0 Blood hematocrit (volume fraction) 33 % 35-52 Automated erythrocyte mean corpuscular volume 86 [foz_us] 80-99 Automated erythrocyte mean corpuscular hemoglobin (mass per erythrocyte) 31 pg 25-34 Automated erythrocyte mean corpuscular hemoglobin concentration measurement ( mass/volume) 36 g/dL 32-36 Automated erythrocyte distribution width ratio 13.9 % 10.0-14.5 Automated blood platelet count (count/volume) 243 10*3/uL 130-400 Automated blood platelet mean volume measurement 10.0 [foz_us] 7.4-10.4 Automated blood neutrophils/100 leukocytes 76 % 42-75 Automated blood lymphocytes/100 leukocytes 15 % 12-44 Blood monocytes/100 leukocytes 8 % 0-12 Automated blood eosinophils/100 leukocytes 1 % 0-10 Automated blood basophils/100 leukocytes 0 % 0-10 Blood neutrophils automated count (number/volume) 6.7 10*3 1.8-7.8 Blood lymphocytes automated count (number/volume) 1.4 10*3 1.0-4.0 Blood monocytes automated count (number/volume) 0.7 10*3 0.0-1.0 Automated eosinophil count 0.1 10*3/uL 0.0-0.3 Automated blood basophil count (count/volume) 0.0 10*3/uL 0.0-0.1 PT panel in platelet poor plasma by coagulation assay - 10/07/17 18:01 Prothrombin time (PT) in platelet poor plasma by coagulation assay 13.7 s 12.2-14.7 INR in platelet poor plasma or blood by coagulation assay 1.0 0.8-1.4 Activated partial thromboplastin time (aPTT) in platelet poor plasma bycoagulation assay - 10/07/17 18:01 Activated partial thromboplastin time (aPTT) in platelet poor plasma bycoagulation assay 37 s 24-35 Comprehensive metabolic panel - 10/07/17 18:01 Serum or plasma sodium measurement (moles/volume) 129 mmol/L 135-145 Serum or plasma potassium measurement (moles/volume) 4.1 mmol/L 3.6-5.0 Serum or plasma chloride measurement (moles/volume) 95 mmol/L 98-107 Carbon dioxide 22 mmol/L 21-32 Serum or plasma anion gap determination (moles/volume) 12 mmol/L 5-14 Serum or plasma urea nitrogen measurement (mass/volume) 18 mg/dL 7-18 Serum or plasma creatinine measurement (mass/volume) 0.82 mg/dL 0.60-1.30 Serum or plasma urea nitrogen/creatinine mass ratio 22 NRG Serum or plasma creatinine measurement with calculation of estimated glomerular filtration rate > NRG Serum or plasma glucose measurement (mass/volume) 103 mg/dL 70-105 Serum or plasma calcium measurement (mass/volume) 9.6 mg/dL 8.5-10.1 Serum or plasma total bilirubin measurement (mass/volume) 0.9 mg/dL 0.1-1.0 Serum or plasma alkaline phosphatase measurement (enzymatic activity/volume) 53 U/L 40-136 Serum or plasma aspartate aminotransferase measurement (enzymatic activity/ volume) 19 U/L 5-34 Serum or plasma alanine aminotransferase measurement (enzymatic activity/volume ) 17 U/L 0-55 Serum or plasma protein measurement (mass/volume) 7.0 g/dL 6.4-8.2 Serum or plasma albumin measurement (mass/volume) 4.1 g/dL 3.2-4.5 Magnesium - 10/07/17 18:01 Magnesium 1.6 mg/dL 1.8-2.4 Serum or plasma lithium measurement (moles/volume) - 10/07/17 18:01 BNP level 44.6 pg/mL <100.0 Serum or plasma troponin i.cardiac measurement (mass/volume) - 10/07/17 18:01 Serum or plasma troponin i.cardiac measurement (mass/volume) < ng/ mL <0.30 Serum or plasma thyrotropin measurement by detection limit <=0.05 miu/l (units/ volume) - 10/07/17 18:01 Serum or plasma thyrotropin measurement by detection limit <=0.05 miu/l (units/ volume) 2.16 u[iU]/mL 0.35-4.94 [id number] - 03/08/18 11:37 Serum or plasma urea nitrogen measurement (mass/volume) 19 mg/dL 7-18 Serum or plasma creatinine measurement (mass/volume) 1.02 mg/dL 0.60-1.30 Serum or plasma urea nitrogen/creatinine mass ratio 19 NRG Serum or plasma creatinine measurement with calculation of estimated glomerular filtration rate 51 NRG Encounters ACCT No. Visit Date/Time Discharge Status Pt. Type Provider Facility Loc./Unit Complaint [id number] 06/02/2018 06:20:00 06/02/2018 13:30:00 DIS Outpatient ISIDRO ZARAGOZA, TIBURCIO [facility] PREOP BLADDER TUMOR [id number] 06/02/2018 10:15:00 06/02/2018 11:45:00 DIS Outpatient KALIE CAICEDO [facility] SDC HYPONATREMIA [id number] 05/17/2018 10:06:00 05/17/2018 23:59:59 CLS Outpatient ARTUR DENG MD [facility] RAD SCREENING [id number] 05/14/2018 08:27:00 05/14/2018 23:59:59 CLS Outpatient KALIE CAICEDO [facility] RAD DIZZINESS [id number] 05/14/2018 10:47:00 05/14/2018 13:20:00 DIS Outpatient KALIE CAICEDO [facility] SDC HYPONATREMIA [id number] 04/07/2018 10:07:00 04/07/2018 23:59:59 CLS Outpatient ARTUR DENG MD [facility] LAB ANEMIA [id number] 03/08/2018 11:15:00 03/08/2018 23:59:59 CLS Outpatient TIBURCIO FELIX MD [facility] RAD BLADDER TUMORS [id number] 01/25/2018 11:47:00 01/25/2018 23:59:59 CLS Outpatient ARTUR DENG MD [facility] RAD DYSPNEA [id number] 01/22/2018 07:07:00 01/22/2018 23:59:59 CLS Preadmit ARTUR DENG MD [facility] RAD DYSPNEA [id number] 01/06/2018 12:46:00 01/06/2018 23:59:59 CLS Outpatient Dodie RIVERA MD [facility] CARD I48.91 AFIB [id number] 12/07/2017 08:17:00 12/07/2017 23:59:59 CLS Outpatient ARTUR DENG MD [facility] RT DYSPNEA R06.00 [id number] 11/30/2017 13:21:00 11/30/2017 23:59:59 CLS Outpatient ARTUR DENG MD [facility] RAD DYSPNEA [id number] 11/21/2017 12:26:00 11/21/2017 23:59:59 CLS Outpatient LAINEY SOLANO APRN [facility] RAD THORACIC AND LUMBAR PAIN [id number] 10/07/2017 17:31:00 10/07/2017 20:36:00 DIS Emergency LISSET HALI K [facility] ER HIGH BP [id number] 09/16/2017 09:28:00 09/16/2017 12:15:00 DIS Outpatient BRADFORD MCKEON APRN [facility] REHAB GAIT TRAINING [id number] 07/15/2017 15:44:00 07/15/2017 23:59:59 CLS Outpatient BRADFORD MCKEON APRN [facility] RAD J18.9 [id number] 05/15/2017 12:27:00 05/15/2017 23:59:59 CLS Outpatient ARTUR DENG MD [facility] RAD SCREENING [id number] 05/11/2017 13:41:00 05/11/2017 23:59:59 CLS Outpatient CORRINE SALGADO MD [facility] LAB Z79.899 [id number] 04/06/2017 15:57:00 04/06/2017 23:59:59 CLS Outpatient ARTUR DENG MD [facility] LAB T07 [id number] 03/20/2017 08:15:00 03/20/2017 23:59:59 CLS Outpatient CORRINE SALGADO MD [facility] RAD M19.90 [id number] 02/25/2017 09:42:00 02/25/2017 23:59:59 CLS Preadmit ARTUR DENG MD [facility] RAD SCREENING Z12.31 [id number] 02/05/2017 08:35:00 02/05/2017 10:55:00 DIS Emergency GARLAND HOOVER MD [facility] ER JOINT ACHES/FEET AND HANDS SWOLLEN [id number] 12/08/2016 14:32:00 12/08/2016 23:59:59 CLS Outpatient ARTUR DENG MD [facility] RAD RHUEMATOID ARTHRITIS [id number] 10/31/2016 08:22:00 10/31/2016 23:59:59 CLS Outpatient ARTUR DENG MD [facility] LAB M12.9 [id number] 10/31/2016 08:18:00 10/31/2016 10:56:00 DIS Outpatient JESSICA LOCKWOOD MD [facility] ENDO ANEMIA;OCCULT POSITIVE [id number] 10/29/2016 05:38:00 10/29/2016 23:59:59 CLS Outpatient JESSICA LOCKWOOD MD [facility] PREOP ANEMIA; OCCULT POSITIVE [id number] 10/21/2016 06:58:00 10/21/2016 09:20:00 DIS Outpatient JESSICA LOCKWOOD MD [facility] ENDO ANEMIA FROM GI BLEED [id number] 10/17/2016 05:42:00 10/17/2016 13:10:00 DIS Outpatient JESSICA LOCKWOOD MD [facility] PREOP ANEMIA FROM GI BLEED [id number] 09/23/2016 16:00:00 09/23/2016 23:59:59 CLS Preadmit Dodie RIVERA MD [facility] CARD EVENT MONITOR [id number] 07/18/2016 08:30:00 09/22/2016 00:01:00 DIS Outpatient Dodie RIVERA MD [facility] CARD EVENT MONITOR [id number] 07/30/2016 09:39:00 07/30/2016 23:59:59 CLS Outpatient ARTUR DENG MD [facility] RAD CAROTID BRUIT, LT HAND TINGLING/WEAKNESS [id number] 07/11/2016 00:19:00 07/11/2016 01:27:00 DIS Emergency CARMELLA MONTILLA DO [facility] ER LEFT HAND PAIN [id number] 06/23/2016 08:50:00 06/24/2016 15:55:00 DIS Inpatient ARTUR DENG MD [facility] ICU L ARM PAIN AND HAND PARESTHESIAS; UNCONTROLLED HTN [id number] 03/14/2016 11:25:00 03/14/2016 23:59:59 CLS Outpatient BRADFORD MCKEON APRN [facility] RAD SCREENING [id number] 02/23/2015 10:39:00 02/23/2015 23:59:59 CLS Outpatient ARTUR DENG MD [facility] RAD SCREENING [id number] 02/15/2014 10:43:00 02/15/2014 23:59:59 CLS Outpatient ARTUR DENG MD [facility] RAD SCREENING [id number] 09/29/2013 10:21:00 10/28/2013 11:05:00 DIS Outpatient ARTUR DENG MD [facility] REHAB CERVICALGIA [id number] 10/26/2013 10:54:00 10/26/2013 23:59:59 CLS Outpatient ARTUR DENG MD [facility] RAD CERVIAGLIA [id number] 09/15/2013 14:10:00 09/26/2013 00:01:00 DIS Outpatient ARTUR DENG MD [facility] REHAB CERVICALGIA [id number] 01/05/2013 09:49:00 01/05/2013 23:59:59 CLS Outpatient BRADFORD MCKEON APRN [facility] RAD SCREENING [id number] 06/07/2018 05:52:00 ACT Outpatient TIBURCIO FELIX MD [facility] BLADDER TUMOR [id number] 10/17/2016 13:06:00 Document Registration [id number] 12/06/2012 06:19:00 Document Registration [id number] 11/30/2012 09:41:00 Document Registration [id number] 06/30/2012 08:05:00 Document Registration [id number] 06/01/2012 08:45:00 Document Registration [id number] 01/02/2012 08:10:00 Document Registration [id number] 02/24/2015 04:21:31 ACT Document Registration
[2018-06-07 06:05] VITALS: BP 131/58
[2018-06-07] MEDS ORDERED: LACTATED RINGERS 1,000 ML IV PRN (06:09)
[2018-06-07] MEDS ORDERED: cefTRIAXone FOR IV USE 1,000 MG in NS (IVPB) 50 ML IV ONE (06:15)
--- NOTE | 2018-06-07 06:55 | Progress Note-Pre Operative ---
Pre-Operative Progress Note H&P Reviewed The H&P was reviewed, patient examined and no changes noted. Date Seen by Provider: Jun 07, 2018 Time Seen by Provider: 06:55 Date H&P Reviewed: Jun 07, 2018 Time H&P Reviewed: 06:55 Pre-Operative Diagnosis: MULTIPLE BLADDER TUMORS TIBURCIO FELIX MD Jun 07, 2018 6:55 am
[2018-06-07] MEDS ORDERED: CATHETER FLUSH 10 ML SYR IV PRN (07:00)
[2018-06-07] MEDS ORDERED: SEVOFLURANE (ULTANE) 15 ML INHAL SOLN ONE (07:01)
[2018-06-07] MEDS ORDERED: ONDANSETRON 4 MG/2 ML (SDV) Z0FRAN ONE (07:01)
[2018-06-07] MEDS ORDERED: proPOfol 200 MG/20 ML (DIPRIVAN) VIAL IV ONE (07:01)
[2018-06-07] MEDS ORDERED: LIDOCAINE PF 2% 5 ML (XYLOCAINE) VIAL ONE (07:01)
[2018-06-07] MEDS ORDERED: fentaNYL INJECTION 100 MCG/2 ML AMP ONE (07:02)
[2018-06-07] MEDS ORDERED: METO-387 PO (07:42)
[2018-06-07] MEDS ORDERED: ROCURONIUM 10 MG/ML 5 ML SYRINGE IV ONE (07:47)
[2018-06-07] MEDS ORDERED: NEOSTIGMINE 1 MG/ML 5 ML SYRINGE ONE (07:59)
[2018-06-07] MEDS ORDERED: GLYCOPYRROLATE 0.2 MG/ML (ROBINUL) 2 ML VIAL ONE (07:59)
--- NOTE | 2018-06-07 08:00 | Progress Note-Post Operative ---
Post-Operative Progess Note Surgeon (s)/Filter Assembler (s) Surgeon TIBURCIO FELIX MD Filter Assembler: NONE Pre-Operative Diagnosis MULTIPLE BLADDER TUMORS Post-Operative Diagnosis SAME Procedure & Operative Findings Date of Procedure 06/07/18 Procedure Performed/Findings TURBT'S Anesthesia Type GENERAL Estimated Blood Loss Estimated blood loss (mL): NEGLIGIBLE Specimens/Packing Specimens Removed BLADDER TUMORS AND BASES Packing: NONE TIUBRCIO FELIX MD Jun 07, 2018 8:00 am
--- NOTE | 2018-06-07 08:02 | Discharge Inst-Urology ---
Discharge Inst-Urology Discharge Medications New, Converted, or Re-newed RX: RX on Chart Patient Instructions/Follow Up Plan Please make appointment to been seen in office in 2 weeks. In 48 hours, if no bleeding, may resume Xarelto Increase oral fluids for 48 hours and then as needed. Diet and Activity as tolerated. If questions or concerns contact your physician Or seek help at emergency department. TIBURCIO FELIX MD Jun 07, 2018 8:02 am
[2018-06-07 08:45] VITALS: BP 133/68
[2018-06-07 09:15] VITALS: BP 141/64
--- NOTE | 2018-06-07 09:33 | Anesthesia-General Post-Op ---
General Patient Condition Mental Status/LOC: Same as Preop Cardiovascular: Satisfactory Nausea/Vomiting: Absent Respiratory: Satisfactory Pain: Controlled Complications: Absent Post Op Complications Complications None Follow Up Care/Instructions Patient Instructions None needed. Anesthesia/Patient Condition Patient Condition Patient is doing well, no complaints, stable vital signs, no apparent adverse anesthesia problems. No complications reported per nursing. D/C home per [facility] Criteria: Yes IVANNA LEAL CRNA Jun 07, 2018 09:33
[2018-06-07 09:45] VITALS: BP 129/62
[2018-06-07] MEDS ORDERED: NITR-65 PO ×2 (13:19→13:22)
[2018-06-07] MEDS ORDERED: HYOS0.1281 PO ×2 (13:19→13:22)
[2018-06-07] MEDS ORDERED: PHEN-640 PO ×2 (13:19→13:22)
--- NOTE | 2018-06-07 15:03 | OPERATIVE REPORT ---
DATE OF SERVICE: 06/07/2018 PREOPERATIVE DIAGNOSIS: Multiple bladder tumors, small. POSTOPERATIVE DIAGNOSIS: Multiple bladder tumors, small. OPERATION PERFORMED: Transurethral resection of bladder tumors. SURGEON: Prateek Felix MD ANESTHESIA: General. COMPLICATIONS: None. DESCRIPTION OF PROCEDURE: Under satisfactory general anesthesia, the patient in lithotomy position, genitalia were prepped and draped in the usual sterile fashion. A 27-[place] Plascencia resectoscope was introduced into the bladder. Again, visualized multiple small bladder tumors, mostly in the right posterior wall of the bladder. There were shelled easily from the wall of the bladder and then deeper cuts were obtained for invasive documentation of the . These were cauterized and hemostasis was complete. Ureteric orifices were intact. There was a clear efflux. There was no further bladder tumor visualized. Bladder was evacuated and the cystoscope was removed. The patient tolerated the procedure and anesthesia well and was sent to recovery room in stable condition. ESTIMATED BLOOD LOSS: Negligible. Job ID: [id number] DocumentID: [id number] Dictated Date: 06/07/2018 08:04:55 Desk Sergeant Date: 06/07/2018 15:02:05 Dictated By: PRATEEK FELIX MD
== END 2018-06-07 11:15 | disposition home or self-care (01) ==
LOC: SDC 05:52
PROVIDERS: ATTEND Urology
DX: C67.9 Malignant neoplasm of bladder, unspecified (principal); Z11.2 Encounter for screening for other bacterial diseases; N30.20 Other chronic cystitis without hematuria; I10 Essential (primary) hypertension; E78.00 Pure hypercholesterolemia, unspecified; I25.10 Atherosclerotic heart disease of native coronary artery without angina pectoris; R35.1 Nocturia; E78.5 Hyperlipidemia, unspecified; I48.91 Unspecified atrial fibrillation; Z79.899 Other long term (current) drug therapy
CPT/HCPCS: 87081

== ENCOUNTER 2018-07-17 10:17 | Emergency (ER) | payer MEDICARE ==
[~2018-07-17] VITALS: Ht 160 cm; Wt 65.3 kg
[~2018-07-17 10:17] MED LIST changes: +HYOS0.1281 PO; +NITR-65 PO; +PHEN-640 PO
[2018-07-17 10:46] LABS: BASOPHILS % (AUTO) 0 % (0-10); EOSINOPHILS # (AUTO) 0.1 10^3/uL (0.0-0.3); EOSINOPHILS % (AUTO) 1 % (0-10); HEMATOCRIT 25 % (35-52); HEMOGLOBIN 8.2 G/DL (11.5-16.0); LYMPHOCYTES # (AUTO) 0.7 X 10^3 (1.0-4.0); LYMPHOCYTES % (AUTO) 10 % (12-44); MEAN CORPUSCULAR HEMOGLOBIN 30 PG (25-34); MEAN CORPUSCULAR HGB CONC 33 G/DL (32-36); MEAN CORPUSCULAR VOLUME 90 FL (80-99); MEAN PLATELET VOLUME 8.5 FL (7.4-10.4); MONOCYTES # (AUTO) 0.6 X 10^3 (0.0-1.0); MONOCYTES % (AUTO) 9 % (0-12); NEUTROPHILS # (AUTO) 5.6 X 10^3 (1.8-7.8); NEUTROPHILS % (AUTO) 80 % (42-75); PLATELET COUNT 299 10^3/uL (130-400); RED BLOOD COUNT 2.72 10^6/uL (4.35-5.85); RED CELL DISTRIBUTION WIDTH 14.1 % (10.0-14.5); WHITE BLOOD COUNT 6.9 10^3/uL (4.3-11.0)
--- NOTE | 2018-07-17 10:46 | ED GU-Female ---
General Stated Complaint: BCG TREATMENT/WEAKNESS/TIRED Source: patient Exam Limitations: no limitations History of Present Illness Date Seen by Provider: Jul 17, 2018 Time Seen by Provider: 10:43 Initial Comments This 87-year-old white female presents with generalized weakness following BCG treatment for her bladder. Patient denies associated fever, chills, headache, stiff neck, photophobia, productive cough or shortness of breath, nausea vomiting or diarrhea. Patient is having no flank pain and no suprapubic discomfort. The patient's generalized weakness is her greatest concern. He was told that she might require iron intravenously again. Allergies and Home Medications Allergies Coded Allergies: No Known Drug Allergies (Unverified , 10/17/16) Home Medications Amlodipine Besylate 10 Mg Tablet, 10 MG PO DAILY, (Reported) Atorvastatin Calcium 10 Mg Tablet, 10 MG PO HS, (Reported) Calcium Carbonate 600 Mg Tablet, 600 MG PO DAILY, (Reported) Carvedilol 12.5 Mg Tablet, 12.5 MG PO BID, (Reported) last filled in February 2018 Desmopressin Acetate 0.2 Mg Tablet, 0.4 MG PO HS, (Reported) Fish Oil/Dha/Epa 1 Each Capsule, 1,200 MG PO BID, (Reported) Folic Acid 1 Mg Tablet, 2 MG PO DAILY, (Reported) take 2 (1mg) tabs Hydroxychloroquine Sulfate 200 Mg Tablet, 200 MG PO BID, (Reported) Hyoscyamine Sulfate 0.125 Mg Tablet, 0.0125-0.25 MG PO Q4H Prescribed by: JEREMIE VICTORIA on 06/07/181321 Lisinopril 40 Mg Tablet, 40 MG PO DAILY, (Reported) Methotrexate Sodium 2.5 Mg Tablet, 15 MG PO WEEK, (Reported) Metoprolol Succinate 25 Mg Tab.er.24h, 25 MG PO DAILY, (Reported) Multivitamins-Min/FA/Ginkgo 1 Each Tablet, 1 TAB PO DAILY, (Reported) Nitrofurantoin Monohyd/M-Cryst 100 Mg Capsule, 1 TAB PO BID WITH MEALS Prescribed by: JEREMIE VICTORIA on 06/07/181321 Ondansetron 4 Mg Tab.rapdis, 4 MG SL Q6H PRN for NAUSEA/VOMITING-1ST LINE, ( Reported) Phenazopyridine HCl 200 Mg Tablet, 1 TAB PO TID Prescribed by: JEREMIE VICTORIA on 06/07/18 1322 Vit C/Vit E/Lutein/Min/Louin-3 1 Each Capsule, 1 CAP PO DAILY, (Reported) Patient Home Medication List Home Medication List Reviewed: Yes Review of Systems Review of Systems Constitutional: No chills, No fever; weakness EENTM: No hearing loss Respiratory: No cough Gastrointestinal: No abdominal pain, No diarrhea, No vomiting Genitourinary: denies burning, denies dysuria, denies frequency, denies flank pain : No Musculoskeletal: No back pain Skin: No change in color, No rash Psychiatric/Neurological: Denies Anxiety, Denies Depressed, Denies Emotional Problems Endocrine: No Symptoms Reported Hematologic/Lymphatic: No Symptoms Reported Past Cbkgkux-Vtycwi-Rynyyf Hx Past Med/Social Hx: Reviewed Nursing Past Med/Soc Hx Patient Social History Recent Foreign Travel: No Contact w/Someone Who Travel: No Recent Hopitalizations: No Immunizations Up To Date Tetanus Booster (TDap): More than 5yrs Date of Pneumonia Vaccine: Jul 26, 2016 Date of Influenza Vaccine: May 17, 2018 Seasonal Allergies Seasonal Allergies: No Past Medical History Surgeries: Yes (FEET, CARPAL TUNNEL ; EGD/COLONOSCOPY) Adenoidectomy, Appendectomy, Orthopedic, Tonsillectomy Respiratory: No Cardiac: Yes (PAROXYSMAL ATRIAL FIBRILLATION) Atrial Fibrillation, Chronic Edema/Swelling, High Cholesterol, Hypertension Neurological: No Reproductive Disorders: No QM CONSULTANT History: Menopausal Sexually Transmitted Disease: No HIV/AIDS: No Genitourinary: No Gastrointestinal: Yes (HEMOCCULT + STOOLS) Musculoskeletal: Yes (LEFT KNEE BURSITIS; ?POLYMYALGIA RHEUMATICA? ; CARPAL TUNNEL) Osteoporosis, Arthritis, Chronic Back Pain Endocrine: No HEENT: Yes 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, Bilateral Hearing Aide Cancer: No Psychosocial: No Integumentary: No Blood Disorders: Yes (ANEMIA) Adverse Reaction/Blood Tranf: No (N/A) Physical Exam Vital Signs Vital Signs - First Documented 07/17/18 10:22 Temp 98.0 Pulse 74 Resp 18 B/P (MAP) 111/44 (66) Pulse Ox 100 O2 Delivery Room Air Capillary Refill : Height, Weight, BMI Height: 5'3.00" Weight: 145lbs. 8.0oz. 65.100409wf; 25.8 BMI Method:Stated General Appearance: WD/WN, no apparent distress HEENT: normal ENT inspection Neck: normal inspection Cardiovascular: regular rate, rhythm Respiratory: lungs clear Gastrointestinal: normal bowel sounds, non tender Back: normal inspection Extremities: normal inspection Neurologic/Psychiatric: no motor/sensory deficits, alert, normal mood/affect Skin: normal color, warm/dry Progress/Results/Core Measures Suspected Sepsis SIRS Temperature: Pulse: Respiratory Rate: Laboratory Tests 07/17/18 10:28: White Blood Count 6.9 Blood Pressure / Mean: Laboratory Tests 07/17/18 10:28: Creatinine 0.97, Platelet Count 299, Total Bilirubin 0.5 Results/Orders Lab Results Laboratory Tests Test 07/17/18 10:28 Range/Units White Blood Count 6.9 4.3-11.0 10^3/uL Red Blood Count 2.72 L 4.35-5.85 10^6/uL Hemoglobin 8.2 L 11.5-16.0 G/DL Hematocrit 25 L 35-52 % Mean Corpuscular Volume 90 80-99 FL Mean Corpuscular Hemoglobin 30 25-34 PG Mean Corpuscular Hemoglobin Concent 33 32-36 G/DL Red Cell Distribution Width 14.1 10.0-14.5 % Platelet Count 299 130-400 10^3/uL Mean Platelet Volume 8.5 7.4-10.4 FL Neutrophils (%) (Auto) 80 H 42-75 % Lymphocytes (%) (Auto) 10 L 12-44 % Monocytes (%) (Auto) 9 0-12 % Eosinophils (%) (Auto) 1 0-10 % Basophils (%) (Auto) 0 0-10 % Neutrophils # (Auto) 5.6 1.8-7.8 X 10^3 Lymphocytes # (Auto) 0.7 L 1.0-4.0 X 10^3 Monocytes # (Auto) 0.6 0.0-1.0 X 10^3 Eosinophils # (Auto) 0.1 0.0-0.3 10^3/uL Basophils # (Auto) 0.0 0.0-0.1 10^3/uL Sodium Level 126 L 135-145 MMOL/L Potassium Level 4.5 3.6-5.0 MMOL/L Chloride Level 98 98-107 MMOL/L Carbon Dioxide Level 20 L 21-32 MMOL/L Anion Gap 8 5-14 MMOL/L Blood Urea Nitrogen 20 H 7-18 MG/DL Creatinine 0.97 0.60-1.30 MG/DL Estimat Glomerular Filtration Rate 54 BUN/Creatinine Ratio 21 Glucose Level 142 H 70-105 MG/DL Calcium Level 8.9 8.5-10.1 MG/DL Corrected Calcium 9.3 8.5-10.1 MG/DL Total Bilirubin 0.5 0.1-1.0 MG/DL Aspartate Amino Transf (AST/SGOT) 19 5-34 U/L Alanine Aminotransferase (ALT/SGPT) 22 0-55 U/L Alkaline Phosphatase 56 40-136 U/L Total Protein 5.5 L 6.4-8.2 GM/DL Albumin 3.5 3.2-4.5 GM/DL My Orders Orders - JESSICA PEÑA MD Cbc With Automated Diff (07/17/18 10:31) Comprehensive Metabolic Panel (07/17/18 10:31) Ua Culture If Indicated (07/17/18 10:31) Iron Tibc %Sat & Ferritin (07/17/18 10:31) Iron Sucrose Injection (Venofer Injectio (07/17/18 12:00) General/Regular (07/17/18 Lunch) Vital Signs/I&O 07/17/18 10:22 Temp 98.0 Pulse 74 Resp 18 B/P (MAP) 111/44 (66) Pulse Ox 100 O2 Delivery Room Air Capillary Refill : Progress Note : Time: 12:06 Progress Note The patient's hemoglobin was 8.5. Pelvic consultation was undertaken with Dr. Cedillo. He recommended a dose of the Venofer 200 mg IV. I asked the patient and family to follow closely with Dr. Cedillo on Thursday. V. Departure Impression Primary Impression: Anemia Qualified Codes: D50.9 - Iron deficiency anemia, unspecified Disposition: HOME, SELF-CARE Condition: Improved Departure-Patient Inst. Decision time for Depature: 12:13 Referrals: ARTUR DENG MD (PCP/Family) Primary Care Physician Patient Instructions: Anemia Caused by Low Iron Add. Discharge Instructions: Follow-up with Dr. Deng on Thursday. Return if any problems or questions. EJSSICA PEÑA MD Jul 17, 2018 10:46
[2018-07-17 11:01] LABS: ALBUMIN 3.5 GM/DL (3.2-4.5); BILIRUBIN,TOTAL 0.5 MG/DL (0.1-1.0); CALCIUM 8.9 MG/DL (8.5-10.1); CREATININE SERUM 0.97 MG/DL (0.60-1.30); POTASSIUM 4.5 MMOL/L (3.6-5.0); TOTAL PROTEIN 5.5 GM/DL (6.4-8.2)
[2018-07-17] MEDS: IRON SUCROSE INJECTION 200 MG in NS (IVPB) 100 ML IV NR ×2 (12:14→12:20)
[2018-07-17 13:27] LABS: BILIRUBIN,URINE NEGATIVE (NEGATIVE); CLARITY,URINE VERY CLOUDY; COLOR,URINE YELLOW; GLUCOSE, URINE (UA) NEGATIVE (NEGATIVE); KETONES,URINE NEGATIVE (NEGATIVE); LEUKOCYTE ESTERASE ,URINE 3+ (NEGATIVE); NITRITE,URINE POSITIVE (NEGATIVE); PH,URINE 7 (5-9); PROTEIN,URINE 2+ (NEGATIVE); UROBILINOGEN,URINE NORMAL (NORMAL)
[2018-07-17 13:36] LABS: BACTERIA,URINE LARGE /HPF; RBC,URINE RARE /HPF; WBC,URINE TNTC /HPF
[2018-07-17 13:55] VITALS: BP 111/44
== END 2018-07-17 13:49 | disposition home or self-care (01) ==
LOC: EDUNIT# 10:17 → ER 10:19
DX: D50.9 Iron deficiency anemia, unspecified (principal); I48.0 Paroxysmal atrial fibrillation; E78.00 Pure hypercholesterolemia, unspecified; I10 Essential (primary) hypertension; M81.0 Age-related osteoporosis without current pathological fracture; Z87.19 Personal history of other diseases of the digestive system; Z90.49 Acquired absence of other specified parts of digestive tract; Z90.89 Acquired absence of other organs
CPT/HCPCS: 36415; 80053; 81000; 82728; 83540; 85025; 87077; 87088; 87186; 96374

== ENCOUNTER → 2019-06-15 | Outpatient (CLI) | payer MEDICARE ==
[~2019-06-15] MED LIST changes: -AMLO10TA6 PO; +AMLO10TA7 PO; -DESM0.2T2 PO; +DESM0.2T29 PO; +OCUVITE SOFTGE1 EACH PO; -RIVA20TA PO; +RIVA20TA2 PO; -VIT1CAPS9 PO
--- NOTE | 2019-06-15 13:20 | Diagnostic Imaging Report ---
INDICATION: Routine screening. COMPARISON: 05/17/2018 and 05/15/2017. TECHNIQUE: 2D and 3D bilateral screening mammography was performed with CAD. FINDINGS: Both breasts remain heterogeneously dense, limiting the sensitivity of mammography. Extensive benign parenchymal and vascular calcifications are again noted bilaterally. No mass or malignant appearing microcalcifications are seen. The axillae are unremarkable. IMPRESSION: No mammographic features suspicious for malignancy are identified. ACR BI-RADS Category 2: Benign findings. Result letter will be mailed to the patient. Note: At least 10% of breast cancer is not imaged by mammography. Dictated by: Dictated on workstation # [id number]
== END ==
LOC: RAD 11:13
PROVIDERS: ATTEND Nurse Practitioner Family
DX: Z12.31 Encounter for screening mammogram for malignant neoplasm of breast (principal)
CPT/HCPCS: 77067

== ENCOUNTER → 2019-09-30 | Outpatient (CLI) | payer MEDICARE ==
[~2019-09-30] MED LIST changes: -METO-387 PO; +MTP25TSR PO
--- NOTE | 2019-09-30 11:50 | Diagnostic Imaging Report ---
EXAMINATION: Thoracic spine at 11:02 a.m. INDICATION: Back pain. AP, lateral and swimmer's views were obtained. The AP view does show that there is mild levoscoliosis of the lower thoracic spine and dextroscoliosis of the mid lumbar spine. These findings are similar to the prior exam of 11/21/2017. The degenerative disc and bony disease involving the lower thoracic spine seen on the prior study does not appear to have progressed. There is no fracture or acute bony abnormality evident. There is no sign of a paraspinal mass. IMPRESSION: 1. There is degenerative disease involving the mid and lower thoracic spine. There is also S-type scoliosis of the thoracolumbar junction. There is no acute bony abnormality appreciated however. 2. If clinical concern regarding an underlying acute abnormality persists, then MRI would be recommended for further evaluation. Dictated by: Dictated on workstation # [id number]
--- NOTE | 2019-09-30 11:54 | Diagnostic Imaging Report ---
EXAMINATION: Cervical spine at 10:57 p.m. INDICATION: Neck pain. TECHNIQUE: AP, lateral, and odontoid views were obtained. FINDINGS: The lateral view again shows the degenerative disc and bony disease involving the mid and lower cervical spine that was noted on the prior exam of 10/26/2013. Specifically, there is narrowing of the disc spaces at C4-C5, C5-C6, and C6-C7. There is also sclerosis of the opposing endplates of these vertebral bodies and there is osteophyte formation along the ventral aspect of each vertebral body. The degenerative disc and bony disease at the C4-C5 level is perhaps somewhat worse than on the prior study. There is no fracture or acute bony abnormality identified. There is no sign of retropharyngeal edema. The lung apices are clear. IMPRESSION: 1. There is fairly severe degenerative disc and bony disease involving the mid and lower cervical spine. The C4-C5 disc space is perhaps slightly more narrowed than on the prior exam but overall, there has been no significant change otherwise. There is no fracture or acute bony abnormality appreciated. 2. If there is clinical concern regarding spinal stenosis or nerve root encroachment, then MRI would be recommended for additional evaluation. Dictated by: Dictated on workstation # [id number]
== END ==
LOC: RAD 10:27
PROVIDERS: ATTEND Nurse Practitioner Family
DX: M50.320 Other cervical disc degeneration, mid-cervical region, unspecified level (principal); M51.34 Other intervertebral disc degeneration, thoracic region; M41.85 Other forms of scoliosis, thoracolumbar region
CPT/HCPCS: 72040; 72072

== ENCOUNTER → 2019-10-10 | Outpatient (CLI) | payer MEDICARE ==
--- NOTE | 2019-10-10 13:35 | Diagnostic Imaging Report ---
EXAM: MRI THORACIC SPINE W/O CON INDICATION: Back pain. COMPARISON: Thoracic spine radiographs 09/30/2019. FINDINGS: Normal alignment. Vertebral body heights preserved. Moderate diffuse degenerative endplate changes. No suspicious bone marrow signal. Degenerative endplate changes result in no substantial spinal canal or neural foraminal narrowing. No abnormal signal in the thoracic spinal cord. The visualized paravertebral soft tissues are unremarkable. IMPRESSION: 1. Moderate spondylotic changes result in no neural impingement. 2. No acute osseous findings. 3. No abnormal signal in the thoracic spinal cord. Dictated by: Dictated on workstation # [id number]
--- NOTE | 2019-10-10 13:46 | Diagnostic Imaging Report ---
PROCEDURE: MR imaging cervical spine without contrast. TECHNIQUE: Multiplanar, multisequence MR imaging of the cervical spine was performed without contrast. INDICATION: Neck pain. COMPARISON: Cervical spine radiographs 09/30/2019. FINDINGS: Normal alignment. Vertebral body heights preserved. Moderate diffuse degenerative endplate changes. No focally abnormal bone marrow signal. No abnormal signal in the cervical spinal cord. The visualized paravertebral soft tissues are unremarkable. The degenerative endplate changes and facet arthropathy result in moderate neural foraminal narrowing on the right at C3-C4 and bilaterally at C6-C7. There is more mild bilateral neural foraminal narrowing at C2-C3, C4-C5 and C5-C6. Diffuse mild spinal canal narrowing at C2-C6. No high-grade spinal canal narrowing. IMPRESSION: 1. Spondylotic changes result in scattered moderate neural foraminal narrowing including on the right at C3-C4 and bilaterally at C6-C7. 2. No high-grade spinal canal narrowing. 3. No abnormal signal in the cervical spinal cord. 4. No acute osseous or ligamentous findings. Dictated by: Dictated on workstation # [id number]
== END ==
LOC: RAD 11:46
PROVIDERS: ATTEND Nurse Practitioner Family
DX: M47.814 Spondylosis without myelopathy or radiculopathy, thoracic region (principal); M47.812 Spondylosis without myelopathy or radiculopathy, cervical region
CPT/HCPCS: 72141; 72146

== ENCOUNTER → 2020-04-27 | Outpatient (CLI) | payer MEDICARE ==
[~2020-04-27] MED LIST changes: +ALEN70TA5 PO; +CHOL125D PO; +DICL100G31 TP; +IRON PO; +LUTE20CA2 PO; +PRED5TAB PO; +RIVA20TA PO; +TRAM50TA3 PO; +UBID100C17 PO
== END ==
LOC: CARD 11:00
PROVIDERS: ATTEND Internal Medicine Interventional Cardiology
DX: I35.0 Nonrheumatic aortic (valve) stenosis (principal); E78.5 Hyperlipidemia, unspecified; I49.3 Ventricular premature depolarization; I10 Essential (primary) hypertension; I48.0 Paroxysmal atrial fibrillation

== ENCOUNTER 2020-04-28 19:46 | Emergency (ER) | payer MEDICARE ==
[~2020-04-28] VITALS: Ht 160 cm; Wt 74.0 kg
--- NOTE | 2020-04-28 19:59 | ED Abdominal Pain ---
General Chief Complaint: Abdominal/GI Problems Stated Complaint: ABD PAIN History of Present Illness Date Seen by Provider: Apr 28, 2020 Time Seen by Provider: 19:59 Initial Comments 89-year-old female presents with some mild lower/diffuse abdominal pain. Patient is currently being treated for urinary tract infection. She has a history of a bowel obstruction and wants to be evaluated to make sure she is not having another one. She reports she's had some small hard stool. She denies any fevers chills nausea vomiting or other systemic complaints. Allergies and Home Medications Allergies Coded Allergies: No Known Drug Allergies (Unverified , 10/17/16) Home Medications Alendronate Sodium 70 Mg Tablet, 70 MG PO WEEK Prescribed by: DANIELA FARMER on 01/22/20 1217 Amlodipine Besylate 10 Mg Tablet, 10 MG PO DAILY, (Reported) Atorvastatin Calcium 10 Mg Tablet, 10 MG PO HS, (Reported) Calcium Carbonate 600 Mg Tablet, 600 MG PO DAILY Prescribed by: DANIELA FARMER on 01/22/20 1217 Carvedilol 12.5 Mg Tablet, 12.5 MG PO BID, (Reported) last filled in February 2018 Cholecalciferol (Vitamin D3) 125 Mcg/0.5 Ml Drops, 125 MCG PO DAILY Prescribed by: DANIELA FARMER on 01/22/20 1229 Desmopressin Acetate 0.2 Mg Tablet, 0.4 MG PO HS, (Reported) Diclofenac Sodium 100 Gm Gel..gram., 100 GM TP NEEDED Prescribed by: DANIELA FARMER on 01/22/20 1229 Fish Oil/Dha/Epa 1 Each Capsule, 1,000 MG PO BID Prescribed by: DANIELA FARMER on 01/22/20 1216 Folic Acid 1 Mg Tablet, 2 MG PO DAILY, (Reported) take 2 (1mg) tabs Lisinopril 40 Mg Tablet, 40 MG PO DAILY, (Reported) Lutein 20 Mg Capsule, 20 MG PO DAILY Prescribed by: DANIELA FARMER on 01/22/20 1229 Multivitamins-Min/FA/Ginkgo 1 Each Tablet, 1 TAB PO DAILY, (Reported) Prednisone 5 Mg Tablet, 5 MG PO DAILY Prescribed by: DANIELA FARMER on 01/22/20 1217 Rivaroxaban 20 Mg Tablet, 20 MG PO HS, (Reported) Tramadol HCl 50 Mg Tablet, 50 MG PO BID Prescribed by: DANIELA FARMER on 01/22/20 1231 Ubidecarenone 100 Mg Capsule, 100 MG PO DAILY Prescribed by: DANILEA FARMER on 01/22/20 1231 Vit C/Vit E/Lutein/Min/Ganado-3 1 Each Capsule, 1 CAP PO DAILY, (Reported) [Iron] , PO Q48H Prescribed by: DANIELA FARMER on 01/22/20 1220 Patient Home Medication List Home Medication List Reviewed: Yes Review of Systems Review of Systems Constitutional: No chills, No fever Respiratory: Denies Cough, Denies Shortness of Air Cardiovascular: Denies Chest Pain, Denies Irregular Heart Rate Gastrointestinal: Abdominal Pain, Constipated; Denies Nausea, Denies Vomiting Genitourinary: See HPI Musculoskeletal: no symptoms reported Skin: no symptoms reported Psychiatric/Neurological: No Symptoms Reported Endocrine: No Symptoms Reported Past Ppymcbs-Itmtxi-Vvpzcf Hx Past Med/Social Hx: Reviewed Nursing Past Med/Soc Hx Patient Social History 2nd Hand Smoke Exposure: No Recent Foreign Travel: No Contact w/Someone Who Travel: No Recent Hopitalizations: No Immunizations Up To Date Tetanus Booster (TDap): More than 5yrs Date of Pneumonia Vaccine: Jul 26, 2016 Date of Influenza Vaccine: May 17, 2018 Seasonal Allergies Seasonal Allergies: No Past Medical History Surgeries: Yes (toe, tumor removal, catartacts) Appendectomy, Tonsillectomy Respiratory: No Cardiac: Yes Atrial Fibrillation Neurological: No Reproductive Disorders: No 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 8.0oz. 65.218318mj; 25.35 BMI Method:Stated General Appearance: WD/WN, no apparent distress Respiratory: lungs clear, normal breath sounds Cardiovascular: normal peripheral pulses, regular rate, rhythm Gastrointestinal: soft; No distended, No guarding, No rebound; tenderness (very minimal diffuse tenderness) Extremities: normal range of motion Back: normal inspection Neurologic/Psychiatric: alert, normal mood/affect, oriented x 3 Skin: normal color, warm/dry Focused Exam Lactate Level 04/28/20 20:45: Lactic Acid Level 1.01 Lactic Acid Level Laboratory Tests Test 04/28/20 20:45 Lactic Acid Level 1.01 MMOL/L (0.50-2.00) Progress/Results/Core Measures Results/Orders Lab Results Laboratory Tests Test 04/28/20 20:45 Range/Units White Blood Count 7.7 4.3-11.0 10^3/uL Red Blood Count 4.01 L 4.35-5.85 10^6/uL Hemoglobin 11.0 L 11.5-16.0 G/DL Hematocrit 32 L 35-52 % Mean Corpuscular Volume 81 80-99 FL Mean Corpuscular Hemoglobin 27 25-34 PG Mean Corpuscular Hemoglobin Concent 34 32-36 G/DL Red Cell Distribution Width 13.5 10.0-14.5 % Platelet Count 269 130-400 10^3/uL Mean Platelet Volume 9.4 7.4-10.4 FL Neutrophils (%) (Auto) 70 42-75 % Lymphocytes (%) (Auto) 20 12-44 % Monocytes (%) (Auto) 9 0-12 % Eosinophils (%) (Auto) 1 0-10 % Basophils (%) (Auto) 0 0-10 % Neutrophils # (Auto) 5.4 1.8-7.8 X 10^3 Lymphocytes # (Auto) 1.5 1.0-4.0 X 10^3 Monocytes # (Auto) 0.7 0.0-1.0 X 10^3 Eosinophils # (Auto) 0.1 0.0-0.3 10^3/uL Basophils # (Auto) 0.0 0.0-0.1 10^3/uL Sodium Level 129 L 135-145 MMOL/L Potassium Level 4.1 3.6-5.0 MMOL/L Chloride Level 95 L 98-107 MMOL/L Carbon Dioxide Level 24 21-32 MMOL/L Anion Gap 10 5-14 MMOL/L Blood Urea Nitrogen 15 7-18 MG/DL Creatinine 0.81 0.60-1.30 MG/DL Estimat Glomerular Filtration Rate > 60 BUN/Creatinine Ratio 19 Glucose Level 113 H 70-105 MG/DL Lactic Acid Level 1.01 0.50-2.00 MMOL/L Calcium Level 9.4 8.5-10.1 MG/DL Corrected Calcium 9.5 8.5-10.1 MG/DL Total Bilirubin 0.4 0.1-1.0 MG/DL Aspartate Amino Transf (AST/SGOT) 24 5-34 U/L Alanine Aminotransferase (ALT/SGPT) 16 0-55 U/L Alkaline Phosphatase 54 40-136 U/L C-Reactive Protein High Sensitivity 2.66 H 0.00-0.50 MG/DL Total Protein 7.0 6.4-8.2 GM/DL Albumin 3.9 3.2-4.5 GM/DL My Orders Orders - CARMELO PIÑA DO Cbc With Automated Diff (04/28/20 20:02) Comprehensive Metabolic Panel (04/28/20 20:02) Hs C Reactive Protein (04/28/20 20:) Lactic Acid Analyzer (04/28/20 20:) Ua Culture If Indicated (04/28/20 20:02) Acute Abd Series (04/28/20 20:02) Progress Progress Note : Time: 21:43 Progress Note Patient with no acute findings on x-ray. She does have some moderate stool on x- ray with some since symptoms consistent with constipation. At this time I recommended she continue her urinary tract infection and we will check a set her primary care him follow-up on it. Patient is ready be discharged home. I recommended she use MiraLAX as needed for soft daily stool, increase her fluid intake, frequent ambulation and add fiber to her diet. Patient is stable at discharge Diagnostic Imaging Diagonstic Imaging: Xray Plain Films/CT/US/NM/MRI: abdomen Comments [facility] [place], [place] NAME: CARMELINA HERR [facility] REC#: [id number] PT STATUS: REG ER : 1930 PHYSICIAN: CARMELO PIÑA DO ADMIT DATE: 04/28/20/ER Draft Date of Exam:04/28/20 ACUTE ABD SERIES INDICATION: Abdominal pain. EXAMINATION: Acute abdomen series. FINDINGS: The accompanying erect PA chest shows the heart size to be within normal limits and stable when compared to the prior exam of 11/30/2017. The lungs are clear. There is no sign of a pneumoperitoneum. Supine and erect views of the abdomen were obtained. There is some gas in both the large and small bowel in a nonspecific fashion. There is no evidence for a bowel obstruction however. There is no pneumoperitoneum identified either. There is no mass or organomegaly evident. The calcified uterine fibroids seen on the prior CT exam of 01/20/2020 are again evident and no different. 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 IMPRESSION: The bowel gas pattern is nonspecific. There is no acute abnormality identified. In particular, there is no evidence for a bowel obstruction. Departure Impression Primary Impression: Constipation Qualified Codes: K59.00 - Constipation, unspecified Additional Impression: Abdominal pain Qualified Codes: R10.84 - Generalized abdominal pain Disposition: HOME, SELF-CARE Condition: Stable Departure-Patient Inst. Referrals: MICHELLE RENTERIA MD (PCP/Family) Primary Care Physician Patient Instructions: Constipation, Adult (DC) Add. Discharge Instructions: MiraLAX 2-3 times daily as needed for soft daily bowel movement Return to the ER if symptoms significantly worsen for revaluation Follow-up with your primary care provider in 3-4 days for recheck in today symptoms All discharge instructions reviewed with patient and/or family. Voiced understanding. CARMELO PIÑA DO Apr 28, 2020 19:59
[2020-04-28 20:57] LABS: BASOPHILS % (AUTO) 0 % (0-10); EOSINOPHILS # (AUTO) 0.1 10^3/uL (0.0-0.3); EOSINOPHILS % (AUTO) 1 % (0-10); HEMATOCRIT 32 % (35-52); LYMPHOCYTES # (AUTO) 1.5 X 10^3 (1.0-4.0); LYMPHOCYTES % (AUTO) 20 % (12-44); MEAN CORPUSCULAR HEMOGLOBIN 27 PG (25-34); MEAN CORPUSCULAR HGB CONC 34 G/DL (32-36); MEAN CORPUSCULAR VOLUME 81 FL (80-99); MEAN PLATELET VOLUME 9.4 FL (7.4-10.4); MONOCYTES # (AUTO) 0.7 X 10^3 (0.0-1.0); MONOCYTES % (AUTO) 9 % (0-12); NEUTROPHILS # (AUTO) 5.4 X 10^3 (1.8-7.8); NEUTROPHILS % (AUTO) 70 % (42-75); PLATELET COUNT 269 10^3/uL (130-400); WHITE BLOOD COUNT 7.7 10^3/uL (4.3-11.0)
[2020-04-28 21:03] LABS: ALBUMIN 3.9 GM/DL (3.2-4.5); CHLORIDE 95 MMOL/L (98-107); POTASSIUM 4.1 MMOL/L (3.6-5.0); SODIUM 129 MMOL/L (135-145)
[2020-04-28 21:04] LABS: CALCIUM 9.4 MG/DL (8.5-10.1)
[2020-04-28 21:06] LABS: GLUCOSE 113 MG/DL (70-105)
[2020-04-28 21:07] LABS: BILIRUBIN,TOTAL 0.4 MG/DL (0.1-1.0); CARBON DIOXIDE 24 MMOL/L (21-32)
[2020-04-28 21:09] LABS: ALKALINE PHOSPHATASE 54 U/L (40-136); CREATININE SERUM 0.81 MG/DL (0.60-1.30); GFR ESTIMATED > 60
[2020-04-28 21:11] LABS: BUN/CREATININE RATIO 19
[2020-04-28 21:12] LABS: ALANINE AMINOTRANSFERASE 16 U/L (0-55)
--- NOTE | 2020-04-28 21:23 | Diagnostic Imaging Report ---
INDICATION: Abdominal pain. EXAMINATION: Acute abdomen series. FINDINGS: The accompanying erect PA chest shows the heart size to be within normal limits and stable when compared to the prior exam of 11/30/2017. The lungs are clear. There is no sign of a pneumoperitoneum. Supine and erect views of the abdomen were obtained. There is some gas in both the large and small bowel in a nonspecific fashion. There is no evidence for a bowel obstruction however. There is no pneumoperitoneum identified either. There is no mass or organomegaly evident. The calcified uterine fibroids seen on the prior CT exam of 01/20/2020 are again evident and no different. 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 IMPRESSION: The bowel gas pattern is nonspecific. There is no acute abnormality identified. In particular, there is no evidence for a bowel obstruction. Dictated by: Dictated on workstation # [id number]
[2020-04-28 21:51] LABS: BILIRUBIN,URINE NEGATIVE (NEGATIVE); CLARITY,URINE CLEAR; COLOR,URINE YELLOW; GLUCOSE, URINE (UA) NEGATIVE (NEGATIVE); KETONES,URINE NEGATIVE (NEGATIVE); LEUKOCYTE ESTERASE ,URINE NEGATIVE (NEGATIVE); NITRITE,URINE NEGATIVE (NEGATIVE); PROTEIN,URINE NEGATIVE (NEGATIVE)
[2020-04-28 21:56] VITALS: BP 146/70
[2020-04-28 22:17] LABS: BACTERIA,URINE NEGATIVE /HPF; WBC,URINE RARE /HPF
== END 2020-04-28 21:57 | disposition home or self-care (01) ==
LOC: EDUNIT# 19:46 → ER 19:48
DX: R10.84 Generalized abdominal pain (principal); K59.00 Constipation, unspecified; M81.0 Age-related osteoporosis without current pathological fracture; Z85.51 Personal history of malignant neoplasm of bladder; Z79.52 Long term (current) use of systemic steroids; Z79.01 Long term (current) use of anticoagulants
CPT/HCPCS: 36415; 74022; 80053; 81000; 83605; 85025; 86141

== ENCOUNTER 2020-06-01 05:37 | Outpatient (RCR) | payer MEDICARE ==
[~2020-06-01] VITALS: Ht 162 cm; Wt 68.1 kg
[~2020-06-01 05:37] MED LIST changes: +C,E,1CAP PO; +FERR-84 PO
--- NOTE | 2020-06-04 08:36 | NUR ---
Notified patient of positive COVID test and answered questions. Notified Dr Wood office and endoscopy.
== END 2020-06-01 09:46 | disposition home or self-care (01) ==
LOC: PREOP 05:37
PROVIDERS: ATTEND Surgery
DX: Z01.812 Encounter for preprocedural laboratory examination (principal); U07.1 COVID-19
CPT/HCPCS: 87635

== ENCOUNTER → 2020-06-29 | Outpatient (CLI) | payer MEDICARE ==
[~2020-06-29] MED LIST changes: -ALEN70TA5 PO; +ALEN70TA69 PO; +AMLO-251 PO; -AMLO10TA7 PO
--- NOTE | 2020-07-02 09:06 | Diagnostic Imaging Report ---
Indication: Routine screening. Comparison is made with prior mammogram 06/15/2019 and 05/17/2018. 2-D and 3-D bilateral screening mammography was performed with CAD. Both breasts are heterogeneously dense, limiting the sensitivity of mammography. Benign parenchymal and vascular calcifications throughout both breasts are again noted. No mass or malignant appearing microcalcifications are seen. Axillae are unremarkable. IMPRESSION: BI-RADS Category 2 No mammographic features suspicious for malignancy are identified. ACR BI-RADS Category 2: Benign findings. Result letter will be mailed to the patient. Note: At least 10% of breast cancer is not imaged by mammography. Dictated by: Dictated on workstation # [id number]
== END ==
LOC: RAD 15:00
PROVIDERS: ATTEND Family Medicine
DX: Z12.31 Encounter for screening mammogram for malignant neoplasm of breast (principal)
CPT/HCPCS: 77063; 77067

== ENCOUNTER 2020-07-20 05:37 | Outpatient (RCR) | payer MEDICARE ==
[~2020-07-20] VITALS: Ht 160 cm; Wt 65.9 kg
== END 2020-07-20 10:03 | disposition home or self-care (01) ==
LOC: PREOP 05:37
PROVIDERS: ATTEND Surgery
DX: Z01.812 Encounter for preprocedural laboratory examination (principal); K92.1 Melena; Z86.010 Personal history of colon polyps; Z20.828 Contact with and (suspected) exposure to other viral communicable diseases
CPT/HCPCS: 87635

== ENCOUNTER 2020-07-24 07:29 | Day surgery (SDC) | payer MEDICARE ==
[2020-07-24] VITALS (8 sets, daily range): BP systolic 83–113; BP diastolic 44–67
[~2020-07-24] VITALS: Ht 160 cm; Wt 65.9 kg
[2020-07-24] MEDS ORDERED: GLYCOPYRROLATE 0.2 MG/ML (ROBINUL) 2 ML VIAL IJ ONE (07:30)
[2020-07-24] MEDS ORDERED: LACTATED RINGERS 1,000 ML IV ONE (07:34)
[2020-07-24] MEDS ORDERED: LACTATED RINGERS 1,000 ML IV STA (07:35)
[2020-07-24] MEDS ORDERED: PROPOFOL INJECTION 50 ML IV ONE (07:46)
[2020-07-24] MEDS ORDERED: MIDAZOLAM 2 MG/2 ML (VERSED) VIAL ONE (07:46)
[2020-07-24] MEDS ORDERED: PHENYLEPHRINE 100 MCG/ML 10 ML (ANESTHESIA) SYR ONE (08:54)
--- NOTE | 2020-07-24 09:11 | Progress Note-Post Operative ---
Post-Operative Progess Note Surgeon (s)/Certified Medical Dosimetrist (s) Surgeon TRISTAN MELLO DO Certified Medical Dosimetrist: na Pre-Operative Diagnosis blood in stools ,hx polyps Post-Operative Diagnosis internal hemorrhoids Procedure & Operative Findings Date of Procedure 07/24/20 Procedure Performed/Findings colonoscopy Anesthesia Type per edi analyst Estimated Blood Loss Estimated blood loss (mL): none Specimens/Packing Specimens Removed na TRISTAN MELLO DO Jul 24, 2020 09:11
--- NOTE | 2020-07-24 09:12 | Discharge Inst-Simple/Standard ---
Discharge Inst-Standard Patient Instructions/Follow Up Plan of Care/Instructions/FU: Follow up with Dr. Johns on as needed basis. Any bowel issues be seen at that time. Activity as Tolerated: Yes Discharge Diet: Regular Diet TRISTAN JOHNS DO Jul 24, 2020 09:12
--- NOTE | 2020-07-24 09:17 | Anesthesia-General Post-Op ---
MAC Patient Condition Mental Status/LOC: Same as Preop Cardiovascular: Satisfactory Nausea/Vomiting: Absent Respiratory: Satisfactory Pain: Controlled Complications: Absent Post Op Complications Complications None Follow Up Care/Instructions Patient Instructions None needed. Anesthesiology Discharge Order Discharge Order Patient is doing well, no complaints, stable vital signs, no apparent adverse anesthesia problems. No complications reported per nursing. KO LAUREN CRNA Jul 24, 2020 09:17
--- NOTE | 2020-07-24 13:27 | OPERATIVE REPORT ---
DATE OF SERVICE: 07/24/2020 PREOPERATIVE DIAGNOSES: Blood in stool, history of polyps. POSTOPERATIVE DIAGNOSIS: Internal hemorrhoids. PROCEDURE: Colonoscopy. SURGEON: Tristan Johns DO ANESTHESIA: Per ELECTRIC DEICER ASSEMBLER. ESTIMATED BLOOD LOSS: None. SPECIMENS: None. DESCRIPTION OF PROCEDURE: The patient was taken to the endoscopy suite, placed in left lateral recumbent position. Timeout was performed. Digital rectal exam was performed noting internal hemorrhoids. No palpable polyps, masses or ulcerations. Scope was inserted in the rectum, advanced all the way to cecum with minimal difficulty. Prep was adequate. Scope was then slowly retracted back. There were no polyps, masses or ulcerations within the cecum, ascending, transverse, descending and sigmoid colon. Once in the rectum, scope was retroflexed noting hemorrhoids. No other pathology. Scope was returned to its normal position, slowly withdrawn until completely removed. The patient tolerated procedure well without any complications. She was taken to recovery room in stable condition. RECOMMENDATIONS: The patient will need repeat colonoscopy on as needed basis. Any issues be seen at that time for reevaluation. Job ID: [id number] DocumentID: [id number] Dictated Date: 07/24/2020 09:15:09 Communication And Outreach Manager Date: 07/24/2020 13:27:05 Dictated By: TRISTAN JOHNS DO
== END 2020-07-24 10:15 | disposition home or self-care (01) ==
LOC: ENDO 07:29
PROVIDERS: ATTEND Surgery
DX: K92.1 Melena (principal); K64.8 Other hemorrhoids; I10 Essential (primary) hypertension; E78.5 Hyperlipidemia, unspecified; I48.0 Paroxysmal atrial fibrillation; I49.3 Ventricular premature depolarization; Z79.01 Long term (current) use of anticoagulants; Z79.899 Other long term (current) drug therapy; Z88.2 Allergy status to sulfonamides; Z86.010 Personal history of colon polyps; Z82.3 Family history of stroke

== ENCOUNTER → 2020-08-22 | Outpatient (CLI) | payer MEDICARE ==
[2020-08-22 11:27] LABS: BASOPHILS % (AUTO) 0 % (0-10); EOSINOPHILS % (AUTO) 0 % (0-10); HEMATOCRIT 32 % (35-52); HEMOGLOBIN 10.6 g/dL (11.5-16.0); LYMPHOCYTES # (AUTO) 0.8 10^3/uL (1.0-4.0); LYMPHOCYTES % (AUTO) 8 % (12-44); MEAN CORPUSCULAR HEMOGLOBIN 27 pg (25-34); MEAN CORPUSCULAR HGB CONC 33 g/dL (32-36); MEAN CORPUSCULAR VOLUME 83 fL (80-99); MEAN PLATELET VOLUME 10.1 fL (9.0-12.2); MONOCYTES # (AUTO) 0.6 10^3/uL (0.0-1.0); MONOCYTES % (AUTO) 6 % (0-12); NEUTROPHILS # (AUTO) 8.6 10^3/uL (1.8-7.8); NEUTROPHILS % (AUTO) 85 % (42-75); PLATELET COUNT 260 10^3/uL (130-400); WHITE BLOOD COUNT 10.1 10^3/uL (4.3-11.0)
[2020-08-22 11:45] LABS: ALANINE AMINOTRANSFERASE 30 U/L (0-55); ALBUMIN 3.8 GM/DL (3.2-4.5); ALKALINE PHOSPHATASE 60 U/L (40-136); BILIRUBIN,TOTAL 0.7 MG/DL (0.1-1.0); BUN/CREATININE RATIO 17; CALCIUM 9.6 MG/DL (8.5-10.1); CARBON DIOXIDE 24 MMOL/L (21-32); CHLORIDE 96 MMOL/L (98-107); CREATININE SERUM 0.84 MG/DL (0.60-1.30); GFR ESTIMATED > 60; GLUCOSE 127 MG/DL (70-105); POTASSIUM 4.4 MMOL/L (3.6-5.0); SODIUM 129 MMOL/L (135-145); TOTAL PROTEIN 6.7 GM/DL (6.4-8.2)
== END ==
LOC: CARD 10:52
PROVIDERS: ATTEND Family Medicine
DX: I49.9 Cardiac arrhythmia, unspecified (principal)
CPT/HCPCS: 36415; 80053; 85025; 93005

== ENCOUNTER → 2020-09-04 | Outpatient (CLI) | payer MEDICARE ==
[~2020-09-04] MED LIST changes: -ALEN70TA69 PO; +ALEN70TA80 PO; -FOLI1TAB24 PO; +FOLI1TAB33 PO
== END ==
LOC: CARD 11:30
PROVIDERS: ATTEND Internal Medicine Cardiovascular Disease
DX: I48.0 Paroxysmal atrial fibrillation (principal); I50.31 Acute diastolic (congestive) heart failure; I08.3 Combined rheumatic disorders of mitral, aortic and tricuspid valves
CPT/HCPCS: 93225; 93226; 93306

== ENCOUNTER → 2020-10-12 | Outpatient (CLI) | payer MEDICARE ==
[~2020-10-12] MED LIST changes: -LISI-552 PO; +LISI20TA26 PO; -LISI40TA PO; +LISI40TA9 PO
--- NOTE | 2020-10-12 15:36 | Diagnostic Imaging Report ---
INDICATION: Abdominal pain and bloating. History of volvulus. COMPARISON: 04/28/2020. FINDINGS: Supine and upright views of the abdomen show a nondistended bowel gas pattern. No abnormal air fluid levels or free intraperitoneal air is seen. No abnormal extraosseous calcifications are seen. Bony and soft tissue structures are within normal limits. No organomegaly is identified. Accompanying upright chest shows normal heart size and pulmonary vascularity. The lungs are well aerated and clear. The mediastinum is normal in appearance. IMPRESSION: 1. No bowel obstruction or free air. 2. Normal chest. No pneumonia or pulmonary edema. Dictated by: Dictated on workstation # [id number]
== END ==
LOC: RAD 13:41
PROVIDERS: ATTEND Nurse Practitioner Family
DX: R10.31 Right lower quadrant pain (principal); R10.32 Left lower quadrant pain; Z87.19 Personal history of other diseases of the digestive system
CPT/HCPCS: 74022

== ENCOUNTER → 2020-12-07 | Outpatient (CLI) | payer MEDICARE ==
[~2020-12-07] VITALS: Ht 162 cm; Wt 66.0 kg
[~2020-12-07] MED LIST changes: +REGADENOSON 0.4 MG/5 ML SYR (LEXISCAN) IV ONE
[2020-12-07] MEDS: CATHETER FLUSH 10 ML SYR IV PRN ×2 (07:06→08:32)
[2020-12-07 08:27] VITALS: BP 157/94
[2020-12-07 08:41] VITALS: BP 134/66
--- NOTE | 2020-12-10 11:40 | STRESS TEST ---
DATE OF SERVICE: 12/07/2020 RESTING AND POST REGADENOSON TECHNETIUM-99M TETROFOSMIN SPECT CT IMAGING ORDERING PHYSICIAN: Renee Matthews APRN. PRIMARY PHYSICIAN: Dr. Kemp. CLINICAL DIAGNOSIS: Shortness of breath. Baseline images were carried out after injection of 10.1 mCi of technetium-99m Tetrofosmin. This was followed by 0.4 mg Regadenoson and 31.3 mCi of technetium-99m Tetrofosmin for stress imaging. The electrocardiogram showed atrial fibrillation versus atrial flutter throughout the study. The electrocardiogram did not change significantly with the Regadenoson infusion. Review of images at rest and following stress does not show any significant perfusion defects consistent with myocardial ischemia or infarction. Gated images show normal global left ventricular systolic function with normal regional wall motion. Left ventricular ejection fraction is calculated to be 71%. Left ventricular end diastolic volume is 36 mL. TID is absent (1.04). CONCLUSIONS: 1. No evidence of any significant myocardial ischemia or infarction on this study. 2. Normal regional wall motion. 3. Normal global left ventricular systolic function with a calculated ejection fraction of 71%. Job ID: [id number] DocumentID: [id number] Dictated Date: 12/10/2020 09:52:55 Comprehensive Advisor Date: 12/10/2020 11:39:37 Dictated By: KAIN EASON MD, MA, FACP, FACC,
== END ==
LOC: CARD 07:45
PROVIDERS: ATTEND Nurse Practitioner Family
DX: R06.09 Other forms of dyspnea (principal); R06.02 Shortness of breath
CPT/HCPCS: 78452; 93017; A9502

== ENCOUNTER → 2021-02-14 | Outpatient (CLI) | payer MEDICARE ==
[~2021-02-14] MED LIST changes: +DICL100G13 TP; -DICL100G31 TP; -REGADENOSON 0.4 MG/5 ML SYR (LEXISCAN) IV ONE
--- NOTE | 2021-02-14 10:41 | Diagnostic Imaging Report ---
PROCEDURE: US left lower extremity venous. TECHNIQUE: Multiple real-time grayscale images were obtained over the left lower extremity in various projections. Additional duplex Doppler and color Doppler images were also obtained. INDICATION: Left lower extremity swelling and pain COMPARISON: None FINDINGS: Visualized deep and superficial venous system is patent. There is a complex mass in the popliteal fossa which measures approximately 4 cm. This is probably a debris-filled Hanks's cyst. Hematoma is not excluded. There is no abnormal blood flow. IMPRESSION: 1. No DVT identified 2. Likely a debris-filled Hanks's cyst versus hematoma in the popliteal fossa. This represents an abscess. Please correlate clinically. Dictated by: Dictated on workstation # [id number]
== END ==
LOC: RAD 09:30
PROVIDERS: ATTEND Nurse Practitioner Family
DX: L02.416 Cutaneous abscess of left lower limb (principal)

== ENCOUNTER → 2021-02-21 | Outpatient (CLI) | payer MEDICARE ==
--- NOTE | 2021-02-21 16:23 | Diagnostic Imaging Report ---
INDICATION: Left leg swelling x1 week. AP and lateral views of the left tibia and fibula are obtained. FINDINGS: No fracture or acute bony abnormality is seen. There are vascular calcifications noted. IMPRESSION: No acute bony abnormality of the left tibia or fibula. Dictated by: Dictated on workstation # [id number]
== END ==
LOC: RAD 16:03
PROVIDERS: ATTEND Nurse Practitioner Family
DX: M79.89 Other specified soft tissue disorders (principal)
CPT/HCPCS: 73590

== ENCOUNTER 2021-04-26 11:10 | Outpatient (RCR) | payer MEDICARE | END 2021-04-28 | disposition home or self-care (01) | LOC: CR 11:10 | PROVIDERS: ATTEND Internal Medicine Cardiovascular Disease | DX: I50.31 Acute diastolic (congestive) heart failure (principal); I20.8 Other forms of angina pectoris; R06.02 Shortness of breath | CPT/HCPCS: 93798 ==

== ENCOUNTER 2021-06-28 13:01 | Outpatient (RCR) | payer MEDICARE | END 2021-06-30 | disposition home or self-care (01) | LOC: CR3 13:01 | PROVIDERS: ATTEND Internal Medicine Cardiovascular Disease | DX: Z29.8 Encounter for other specified prophylactic measures (principal) ==

== ENCOUNTER 2021-07-01 11:01 | Outpatient (RCR) | payer MEDICARE | END 2021-07-28 | disposition home or self-care (01) | LOC: CR 11:01 | PROVIDERS: ATTEND Internal Medicine Cardiovascular Disease | DX: I50.31 Acute diastolic (congestive) heart failure (principal) | CPT/HCPCS: 93798 ==

== ENCOUNTER → 2021-07-31 | Outpatient (RCR) | payer MEDICARE | END | disposition home or self-care (01) | LOC: CR3 07-01 11:16 | PROVIDERS: ATTEND Internal Medicine Cardiovascular Disease | DX: Z29.8 Encounter for other specified prophylactic measures (principal) ==

== ENCOUNTER → 2021-08-12 | Outpatient (CLI) | payer MEDICARE ==
--- NOTE | 2021-08-12 15:43 | Diagnostic Imaging Report ---
INDICATION: Right wrist pain. COMPARISON: None. FINDINGS: Multiple radiographic views of the right wrist were obtained. No acute osseous abnormality is seen. Radiocarpal joint spaces appear intact. There is widening of the scapholunate joint space. Patient appears to be status post previous resection of the trapezium. 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 Old ulnar styloid fracture is noted. No unexpected radiopaque foreign bodies are seen. IMPRESSION: 1. No acute fracture or dislocation of the right wrist. 2. Nonacute findings as described above. Dictated by: Dictated on workstation # [id number]
== END ==
LOC: RAD 14:24
PROVIDERS: ATTEND Nurse Practitioner Family
DX: M25.531 Pain in right wrist (principal)
CPT/HCPCS: 73110

== ENCOUNTER 2021-09-13 11:00 | Outpatient (RCR) | payer MEDICARE | END 2021-09-15 | disposition home or self-care (01) | LOC: CR3 11:00 | PROVIDERS: ATTEND Internal Medicine Cardiovascular Disease | DX: Z29.8 Encounter for other specified prophylactic measures (principal) ==